=== PATIENT | male | born 1950 | race Caucasian/White ===

== ENCOUNTER → 2016-09-08 | Outpatient (CLI) | payer BC, OTHER ==
[~2016-09-08] MED LIST: ASPI-435 PO; ATOR-22 PO; CHOL2000 PO; COEN1CAP7 PO; DULO-24 PO; ESCI10TA17 PO; FLUT0.15 NAE; IMDSR30 PO; LISI10TA PO; METO-157 PO; METO25TA3 PO; NITR0.4S UT; PRED-301 PO; PRT/20 PO; RANI300T2 PO; TAMS0.4C38 PO; TRAM-10 PO; ULT50X PO; VNTHFA/IN INH; ZOLE5INJ IV; ZOLP6.252 PO
== END | disposition home or self-care (01) ==
LOC: C.RDSM 05:18
PROVIDERS: ATTEND Family Medicine Sports Medicine
DX: M25.562 Pain in left knee (principal)

== ENCOUNTER → 2016-09-20 | Outpatient (CLI) | payer BC ==
--- NOTE | 2016-09-20 14:37 | DIAGNOSTIC IMAGING REPORT ---
CHEST 2 VIEWS ROUTINE CLINICAL HISTORY: Preoperative chest. Coronary artery disease. COMPARISON STUDY: 05/11/2016 FINDINGS: The heart is the upper limits of normal in size. There are coronary artery calcifications. There is no failure. There is no lobar consolidation. There is right midlung zone atelectasis/scarring. There is a retrocardiac opacity consistent with a hiatal hernia. There is no failure. There are no pleural effusions. The study was performed in a somewhat apical lordotic fashion. IMPRESSION: No active disease in the chest. Electronically signed by: Jp Magallon M.D. 09/20/2016 2:36 PM Dictated Date/Time: 09/20/2016 2:35 PM
[2016-09-20 15:41] LABS: BASO % 0.6 %; BASO ABS # 0.04 K/uL (0-0.2); COMPLETE YES; EOS % 3.6 %; HEMATOCRIT 40.5 % (42-52); IG% 0.1 %; LYMPH % 16.2 %; LYMPH ABS # 1.17 K/uL (1.2-3.4); MEAN CORPUSCULAR HGB CONC 33.3 g/dl (32-36); MEAN PLATELET VOLUME 8.7 fL (7.4-10.4); MONO % 11.8 %; NEUT % 67.7 %; PLATELET COUNT 215 K/uL (130-400); WHITE BLOOD COUNT 7.23 K/uL (4.8-10.8)
[2016-09-20 15:51] LABS: PARTIAL THROMBOPLASTIN RATIO 0.9; PROTHROMBIN TIME (PATIENT) 10.9 SECONDS (9.0-12.0)
[2016-09-20 15:58] LABS: BLOOD UREA NITROGEN 14 mg/dl (7-18); BUN/CREATININE RATIO 13.1 (10-20); CALCIUM 8.9 mg/dl (8.5-10.1); CARBON DIOXIDE 26 mmol/L (21-32); CHLORIDE 104 mmol/L (98-107); GLUCOSE 102 mg/dl (70-99); POTASSIUM 4.4 mmol/L (3.5-5.1); SODIUM 141 mmol/L (136-145)
== END | disposition home or self-care (01) ==
LOC: C.LAB1850 14:04
PROVIDERS: ATTEND Nurse Practitioner Acute Care
DX: I25.10 Atherosclerotic heart disease of native coronary artery without angina pectoris (principal); R94.39 Abnormal result of other cardiovascular function study

== ENCOUNTER → 2016-11-10 | Outpatient (CLI) | payer BC ==
--- NOTE | 2016-11-10 14:02 | DIAGNOSTIC IMAGING REPORT ---
NUCLEAR GASTRIC EMPTYING STUDY CLINICAL HISTORY: Early satiety. Gastroesophageal reflux disease. COMPARISON STUDY: Fluoroscopic upper GI series dated 09/03/2015. TECHNIQUE: Following the oral administration of 1.1 mCi of technetium 99m sulfur colloid in egg sandwich and 8 ounces of water, static abdominal images are obtained anteriorly and posteriorly at 0 minutes, 1 hour, 2 hour, and 4 hour time intervals. Gastric emptying was calculated utilizing the geometric mean method. FINDINGS: There is approximately 75% activity remaining at the 1 hour time interval, 27% remaining at the 2 hour time interval (normal is less than 60%), and 0% activity remaining at the 4 hour time interval (normal is less than 10%). IMPRESSION: Findings are consistent with normal gastric emptying for solids. Electronically signed by: Wesley Christian M.D. 11/10/2016 2:00 PM Dictated Date/Time: 11/10/2016 2:00 PM
== END | disposition home or self-care (01) ==
LOC: C.NUCL 07:38
PROVIDERS: ATTEND Physician Assistant
DX: K21.9 Gastro-esophageal reflux disease without esophagitis (principal); R68.81 Early satiety

== ENCOUNTER 2017-03-11 11:37 | Observation (INO) | payer BC ==
[~2017-03-11] VITALS: Ht 177.8 cm; Wt 88.7 kg
[~2017-03-11 11:37] MED LIST changes: -IMDSR30 PO; -ULT50X PO
[2017-03-11 12:12] LABS: HEMATOCRIT 36.6 % (42-52); MEAN CELL VOLUME 81.7 fL (80-100); MEAN CORPUSCULAR HEMOGLOBIN 26.8 pg (25-34); MEAN CORPUSCULAR HGB CONC 32.8 g/dl (32-36); MEAN PLATELET VOLUME 8.7 fL (7.4-10.4); PLATELET COUNT 208 K/uL (130-400); RED BLOOD COUNT 4.48 M/uL (4.7-6.1); WHITE BLOOD COUNT 5.59 K/uL (4.8-10.8)
[2017-03-11 12:20] LABS: BUN/CREATININE RATIO 16.4 (10-20); CALCIUM 8.7 mg/dl (8.5-10.1); POTASSIUM 3.3 mmol/L (3.5-5.1)
[2017-03-11 12:25] LABS: ALB/GLOB RATIO 1.2 (0.9-2); CKMB/CK RATIO 1.1 (0-3.0)
--- NOTE | 2017-03-11 12:36 | DIAGNOSTIC IMAGING REPORT ---
CHEST ONE VIEW PORTABLE HISTORY: 66 years-old Male acute chest pain COMPARISON: Chest radiograph 09/20/2016 TECHNIQUE: Portable upright AP view of the chest FINDINGS: Coronary arterial calcifications or stent graft is noted. Cardiac silhouette is mildly enlarged. There is no pneumothorax, pleural effusion or focal airspace consolidation. There is mild right hemidiaphragmatic elevation. Linear pleural-based subsegmental opacities of the lateral aspects of the midlungs bilaterally are compatible with atelectasis or scarring. The bones are grossly intact. There appears to be prior osteotomy or osteolysis of the distal left clavicle. IMPRESSION: Mild cardiomegaly without acute cardiopulmonary process. The above report was generated using voice recognition software. It may contain grammatical, syntax or spelling errors. Electronically signed by: Acosta Rizzo M.D. 03/11/2017 12:35 PM Dictated Date/Time: 03/11/2017 12:33 PM
[2017-03-11] MEDS ORDERED: ONDANSETRON INJ 2 MG/ML 2 ML VIAL IV STA (12:46)
[2017-03-11] MEDS ORDERED: SODIUM CHLORIDE 0.9% 500ML 500 ML IV STA (12:47)
[2017-03-11] MEDS ORDERED: FENTANYL CITRATE INJ 50 MCG/1 ML 2 ML VIAL IV ONE (13:00)
[2017-03-11 13:31] LABS: PARTIAL THROMBOPLASTIN RATIO 0.9; PROTHROMBIN TIME (PATIENT) 11.1 SECONDS (9.0-12.0)
[2017-03-11] MEDS ORDERED: OPTIRAY 320 IV PRN (14:15)
--- NOTE | 2017-03-11 14:53 | DIAGNOSTIC IMAGING REPORT ---
(CHEST FOR PE) ANGIO WITH CT DOSE: 793.25 mGy.cm HISTORY: Chest pain dyspnea TECHNIQUE: Multiaxial CT images of the chest were performed following the intravenous administration of contrast to evaluate the pulmonary arteries. Maximal intensity projection images were also obtained. A dose lowering technique was utilized adhering to the principles of ALARA. COMPARISON STUDY: 05/11/2016 FINDINGS: thoracic aorta is normal in course and caliber. Pulmonary vasculature enhances appropriately. There are no filling defects. There are scattered atelectatic changes of the right perihilar as well as regions adjacent to the major fissures bilaterally. No evidence for significant cardiac enlargement. Slight bibasilar interstitial prominence. Fixed hiatal hernia. IMPRESSION: 1. No evidence for pulmonary embolus. 2. Scattered atelectatic and interstitial change. 3. Fixed hiatal hernia. The above report was generated using voice recognition software. It may contain grammatical, syntax or spelling errors. Electronically signed by: Lance Wild M.D. 03/11/2017 2:52 PM Dictated Date/Time: 03/11/2017 2:48 PM
--- NOTE | 2017-03-11 14:57 | DIAGNOSTIC IMAGING REPORT ---
HEAD WITHOUT CONTRAST (CT) CT DOSE: 614.27 mGy.cm HISTORY: Headache DE ANDA TECHNIQUE: Multiaxial CT images of the head were performed without the use of intravenous contrast. A dose lowering technique was utilized adhering to the principles of ALARA. Comparison: 12/01/2012 Findings: The paranasal sinuses demonstrate moderate mucosal thickening in the ethmoid sinuses. All remaining sinuses are clear.. The calvarium and skull base are intact. The ventricles and sulci are within normal limits. There is no mass, hematoma, midline shift, or acute infarct. Old left craniotomy defect. Impression: No acute intracranial abnormality. Old left craniotomy defect. Moderate mucosal thickening of the ethmoid sinuses The above report was generated using voice recognition software. It may contain grammatical, syntax or spelling errors. Electronically signed by: Lance Wild M.D. 03/11/2017 2:55 PM Dictated Date/Time: 03/11/2017 2:53 PM
[2017-03-11] MEDS ORDERED: NITROGLYCERIN 0.4 MG SL PER TAB CHARGE SL PRN (16:30)
[2017-03-11] MEDS ORDERED: ZOLPIDEM TARTRATE 5 MG TAB PO PRN (16:30)
[2017-03-11] MEDS ORDERED: POLYETHYLENE (MIRALAX) 17 GM PACK PO PRN (16:30)
[2017-03-11] MEDS ORDERED: HYDROmorphone INJ 1 MG/ML SYR IV ONE (16:30)
[2017-03-11] MEDS ORDERED: MAGNESIUM HYDROXIDE SUSP 30 ML UDC PO PRN (16:30)
[2017-03-11] MEDS ORDERED: ACETAMINOPHEN 325 MG TAB PO PRN (16:30)
[2017-03-11] MEDS ORDERED: ALUMINUM/MAGNESIUM/SIMETH (MAALOX MAX) 30 ML UDC PO PRN (16:30)
[2017-03-11] MEDS ORDERED: ALBUTEROL HFA 8 GM INHALER INH PRN (16:30)
[2017-03-11] MEDS ORDERED: ONDANSETRON INJ 2 MG/ML 2 ML VIAL IV PRN (16:30)
--- NOTE | 2017-03-11 17:04 | History and Physical ---
History & Physical Date & Time of Service: Mar 11, 2017 at 16:42 Chief Complaint: Chest Pain Primary Care Physician: Mary Pina M.D. History of Present Illness Source: patient 66 y/o M Hx CAD, HTN, HPL, DVT/PE, cervical spinal stenosis. Pt has chronic neck pain which was acutely worse this AM. The pain was severe and seemed to radiate into his chest. He describes accompanying SOB, nausea and profuse diaphoresis. He had a total of 4 SL NTG at home which did not ameliorate the pain and he presented to the ER therefore. After receiving narcotics in the ER , the pain relocalized to his neck. Past Medical/Surgical History 1) Sarcoidosis 2) Cervical stenosis with chronic neck pain. Follows with neurosurgery who have thus far advised against intervention. 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 He required a craniotomy and then an additional revision when the wound became infected. 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 Smoking Status: Never Smoker Drug Use: none Marital Status: Housing status: lives with family Occupational Status: employed Immunizations History of Influenza Vaccine: Yes Influenza Vaccine Date: Oct 19, 2010 History of Tetanus Vaccine?: Yes Tetanus Immunization Date: Aug 01, 2010 History of Pneumococcal: No History of Hepatitis B Vaccine: No Hepatitis Immunization Date: Oct 19, 2010 Multi-Drug Resistant Organisms History of MDRO: No Allergies Coded Allergies: No Known Allergies (Unverified , 03/11/17) Home Medications Scheduled Aspirin (Aspirin 81), 81 MG PO DAILY Atorvastatin (Lipitor), 20 MG PO DAILY Cholecalciferol (Vitamin D3), 1 CAP PO DAILY Coenzyme Q10 (Ubidecarenone) (Coq10), 400 MG PO DAILY Duloxetine Hcl (Cymbalta), 20 MG PO DAILY Escitalopram (Lexapro), 10 MG PO DAILY Fluticasone Propionate (Nasal) (Flonase Allergy Relief), 1 SPRAY JESUS BID Lisinopril (Prinivil), 10 MG PO DAILY Metoclopramide (Reglan), 5 MG PO HS Metoprolol Succ (Toprol Xl) (Toprol-Xl), 25 MG PO DAILY Pantoprazole Sodium (Protonix), 20 MG PO BID Prednisone (Prednisone), 5 MG PO DAILY Ranitidine Hcl (Zantac), 300 MG PO HS Tamsulosin Hcl (Flomax), 0.4 MG PO DAILY Zoledronic Acid (Reclast), 5 MG IV YEARLY Scheduled PRN Albuterol Hfa (Ventolin Hfa), 2 PUFFS INH Q4 PRN for Wheezing Nitroglycerin (Nitrostat), 0.4 MG UT UD PRN for Chest Pain Zolpidem Tartrate (Ambien Cr), 6.25 MG PO HS PRN for Sleep Review of Systems Constitutional: + sweats, No fever, No chills Eyes: No worsening of vision, No eye pain ENT: No hearing loss, No unusual epistaxis, No nasal symptoms Respiratory: No cough, No sputum, No wheezing Cardiovascular: + chest pain, No orthopnea Abdomen: + nausea, No pain, No vomiting Musculoskeletal: + joint pain (Neck pain) Genitourinary - Male: No hematuria, No dysuria, No urinary frequency, No urinary urgency Neurologic: No memory loss, No paralysis, No weakness Psychiatric: No depression symptoms Endocrine: No fatigue Hematologic / Lymphatic: No abnormal bleeding/bruising Integumentary: No rash Allergic / Immunologic: No environmental allergies Physical Exam Vital Signs Date Time Temp Pulse Resp B/P (MAP) Pulse Ox O2 Delivery O2 Flow Rate FiO2 03/11/17 14:53 71 16 131/65 98 Room Air 03/11/17 12:20 83 18 150/85 100 Nasal Cannula 2.0 03/11/17 12:16 100 Nasal Cannula 2.0 03/11/17 12:15 98 Room Air 03/11/17 11:44 81 03/11/17 11:43 98 Room Air 03/11/17 11:43 37.0 71 17 136/74 98 Room Air General Appearance: WD/WN, + pertinent finding (Overweight middle-aged male - appears emotionally distressed) Head: normocephalic Eyes: normal inspection, EOMI ENT: normal ENT inspection, hearing grossly normal, pharynx normal Neck: supple, no JVD Respiratory/Chest: chest non-tender, lungs clear, normal breath sounds, no respiratory distress, no accessory muscle use Cardiovascular: regular rate, rhythm, no edema, no gallop, no JVD, no murmur, normal peripheral pulses Abdomen/GI: normal bowel sounds, non tender, soft Back: normal inspection, no CVA tenderness, no muscle spasm, normal range of motion Extremities/Musculoskelatal: normal inspection, no calf tenderness, normal capillary refill, no pedal edema, normal range of motion 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, no motor/sensory deficits, alert, normal mood/affect, normal reflexes, oriented x 3 Skin: normal color, no rash Diagnostics Laboratory Results Results Past 24 Hours Test 03/11/17 11:35 03/11/17 12:09 03/11/17 12:52 Range/Units White Blood Count 5.59 4.8-10.8 K/uL Red Blood Count 4.48 4.7-6.1 M/uL Hemoglobin 12.0 14.0-18.0 g/dL Hematocrit 36.6 42-52 % Mean Corpuscular Volume 81.7 80-100 fL Mean Corpuscular Hemoglobin 26.8 25-34 pg Mean Corpuscular Hemoglobin Concent 32.8 32-36 g/dl RDW Standard Deviation 43.5 36.4-46.3 fL RDW Coefficient of Variation 14.6 11.5-14.5 % Platelet Count 208 130-400 K/uL Mean Platelet Volume 8.7 7.4-10.4 fL Sodium Level 141 136-145 mmol/L Potassium Level 3.3 3.5-5.1 mmol/L Chloride Level 107 98-107 mmol/L Carbon Dioxide Level 27 21-32 mmol/L Anion Gap 7.0 3-11 mmol/L Blood Urea Nitrogen 16 7-18 mg/dl Creatinine 1.00 0.60-1.40 mg/dl Est Creatinine Clear Calc Drug Dose 82.5 ml/min Estimated GFR () 91.1 Estimated GFR (Non- 78.6 BUN/Creatinine Ratio 16.4 10-20 Random Glucose 104 70-99 mg/dl Calcium Level 8.7 8.5-10.1 mg/dl Total Bilirubin 0.6 0.2-1 mg/dl Aspartate Amino Transf (AST/SGOT) 17 15-37 U/L Alanine Aminotransferase (ALT/SGPT) 26 12-78 U/L Alkaline Phosphatase 53 45-117 U/L Total Creatine Kinase 168 39-308 U/L Creatine Kinase MB 1.9 0.5-3.6 ng/ml Creatine Kinase MB Ratio 1.1 0-3.0 Total Protein 6.7 6.4-8.2 gm/dl Albumin 3.7 3.4-5.0 gm/dl Globulin 3.0 2.5-4.0 gm/dl Albumin/Globulin Ratio 1.2 0.9-2 Bedside Troponin I < 0.030 0-0.045 ng/ml Prothrombin Time 11.1 9.0-12.0 SECONDS Prothromb Time International Ratio 1.0 0.9-1.1 Activated Partial Thromboplast Time 22.6 21.0-31.0 SECONDS Partial Thromboplastin Ratio 0.9 D-Dimer 930 0-500 ug/L FEU Diagnostic Radiology CTA - no PE or acute findings Normal EKG Impression Assessment and Plan 66 y/o M Hx CAD, HTN, HPL, DVT/PE, cervical spinal stenosis. Pt has chronic neck pain which was acutely worse this AM. The pain was severe and seemed to radiate into his chest. He describes accompanying SOB, nausea and profuse diaphoresis. He had a total of 4 SL NTG at home which did not ameliorate the pain and he presented to the ER therefore. After receiving narcotics in the ER , the pain relocalized to his neck. 1) CP - may have been due to coronary spasm following severe neck pain - due to his history we will monitor on telemetry with serial enzymes. Will cont ASA, Statin, Toprol and NTG/narcotics as needed for pain. 2) Neck pain - long-standing - becoming more severe causing pt due distress - we may want to contact his neurosurgeon if cardiac etiology is ruled out. Will provide narcotics as needed in the interim 3) HTN - cont Toprol, Lisinopril 4) HPL - cont statin Tx 5) Sarcoid - no evidence of exacerbation - cont Albuterol as needed in add to 5mg pred daily Full code - Heparin prophylaxis - total time for this admit including review of labs, meds, EKG, records - discussion with pt and ER attending - 33 min Level of Care Telemetry Resuscitation Status FULL RESUSCITATION VTE Prophylaxis VTE Risk Assessment Done? Y/N: Yes Risk Level: Moderate Given or contraindicated: Unfractionated heparin SQ
[2017-03-11 17:50] VITALS: BP 161/73; PULSE 63; TEMP 36.9; O2SAT 97; Ht 177.8 cm; Wt 88.7 kg
[2017-03-11] MEDS ORDERED: POTASSIUM CHLORIDE PWD 20 MEQ PACK PO ONE (18:30)
[2017-03-11] MEDS ORDERED: NSS + 20MEQ KCL 1000ML 1,000 ML IV SCH (18:30)
[2017-03-11] MEDS ORDERED: NITROGLYCERIN OINT 2% 1GM PACKET EXT ONE (18:30)
--- NOTE | 2017-03-11 19:16 | EMERGENCY ROOM VISIT NOTE ---
History Report prepared by Mary: Jb Romo Under the Supervision of: Dr. Kevin Acosta D.O. First contact with patient: 12:37 Chief Complaint: CHEST PAIN Stated Complaint: CHEST PAIN Nursing Triage Summary: CP while resting at home. Does has cardiac history with stents. Left sided CP and was diaphoretic. Took 4 nitros at home, no relief. ALS gave 3 nitros, minimal relief. Was given 3 ASA, takes a baby ASA in AM. History of Present Illness The patient is a 66 year old male who presents to the Emergency Room via EMS with complaints of constant pressure-like left-sided chest pain that began 3 hours ago. He rates his pain a 3/10 in severity. At this time, the patient was sitting on the sofa when the pain began. He then began to have diaphoresis and heart palpitations. He took 4 Nitroglycerin tablets, but it did not help his symptoms. He has a past medical history of 1 heart attack 10 years ago and [address] He does not know if his symptoms feel like those of his past heart attack. He is having some shortness of breath with the pain as well. He received more Nitroglycerin en route and 3 Aspirin 81 mg per EMS that helped his pain a little, but it is back now. He also has a past medical history of a DVT and a PE secondary to a subdural hematoma. He denies any fevers, cough, jaw pain, arm pain, or vomiting. He also denies any recent trauma. He takes a baby Aspirin every day. Source of History: patient Onset: 3 hours ago Position: chest (left) Symptom Intensity: 3/10 Quality: pressure Timing: constant Associated Symptoms: + SOB, No fevers, No cough, No vomiting Note: He denies any jaw pain or arm pain. Review of Systems See HPI for pertinent positives & negatives. A total of 10 systems reviewed and were otherwise negative. Past Medical & Surgical Medical Problems: (1) ACUTE VENOUS EMBOLISM & THROMBOSIS UNSP DEEP VESSELS OF LE (2) Back pain (3) Chest pain (4) Hypertension (5) [place] (myocardial infarction) (6) Neck pain (7) OTH PULMON EMBOLISM/INFARCT (8) PERCUTANEOUS TRANSLUM CORON ANGIOPLASTY STATUS (9) Sarcoidosis (10) SUBDURAL HEMORRHAGE Family History Omitted secondary to age. Social History Smoking Status: Never Smoker Smokeless Tobacco Use: No Drug Use: none Marital Status: Housing Status: lives with family Occupation Status: employed Current/Historical Medications Scheduled Aspirin (Aspirin 81), 81 MG PO DAILY Atorvastatin (Lipitor), 20 MG PO DAILY Cholecalciferol (Vitamin D3), 1 CAP PO DAILY Coenzyme Q10 (Ubidecarenone) (Coq10), 400 MG PO DAILY Duloxetine Hcl (Cymbalta), 20 MG PO DAILY Escitalopram (Lexapro), 10 MG PO DAILY Fluticasone Propionate (Nasal) (Flonase Allergy Relief), 1 SPRAY JESUS BID Lisinopril (Prinivil), 10 MG PO DAILY Metoclopramide (Reglan), 5 MG PO HS Metoprolol Succ (Toprol Xl) (Toprol-Xl), 25 MG PO DAILY Pantoprazole Sodium (Protonix), 20 MG PO BID Prednisone (Prednisone), 5 MG PO DAILY Ranitidine Hcl (Zantac), 300 MG PO HS Tamsulosin Hcl (Flomax), 0.4 MG PO DAILY Zoledronic Acid (Reclast), 5 MG IV YEARLY Scheduled PRN Albuterol Hfa (Ventolin Hfa), 2 PUFFS INH Q4 PRN for Wheezing Nitroglycerin (Nitrostat), 0.4 MG UT UD PRN for Chest Pain Zolpidem Tartrate (Ambien Cr), 6.25 MG PO HS PRN for Sleep Allergies Coded Allergies: No Known Allergies (Unverified , 03/11/17) Physical Exam Vital Signs Date Time Temp Pulse Resp B/P (MAP) Pulse Ox O2 Delivery O2 Flow Rate FiO2 03/11/17 16:30 64 16 166/106 99 Room Air 03/11/17 14:53 71 16 131/65 98 Room Air 03/11/17 12:20 83 18 150/85 100 Nasal Cannula 2.0 03/11/17 12:16 100 Nasal Cannula 2.0 03/11/17 12:15 98 Room Air 03/11/17 11:44 81 03/11/17 11:43 98 Room Air 03/11/17 11:43 37.0 71 17 136/74 98 Room Air Physical Exam GENERAL: alert, disheveled and ill appearing, no distress, non-toxic, sitting up in bed. EYE EXAM: normal conjunctiva OROPHARYNX: no exudate, no erythema, lips, buccal mucosa, and tongue normal and mucous membranes are moist NECK: supple, no nuchal rigidity, no adenopathy, non-tender LUNGS: Clear to auscultation. Normal chest wall mechanics HEART: Faint systolic ejection murmur. S1 normal and S2 normal ABDOMEN: abdomen soft, non-tender, normo-active bowel sounds, no masses, no rebound or guarding. BACK: Back is symmetrical on inspection and there is no deformity, no midline tenderness, no CVA tenderness. SKIN: no rashes and no bruising UPPER EXTREMITIES: upper extremities are grossly normal. Radial pulses equal bilaterally. LOWER EXTREMITIES: No pitting edema. NEURO EXAM: Normal sensorium, cranial nerves II-XII grossly intact, normal speech, no gross weakness of arms, no gross weakness of legs. Medical Decision & Procedures ER Provider Diagnostic Interpretation: Radiology results as stated below per my review and the radiologist's interpretation: CHEST ONE VIEW PORTABLE HISTORY: 66 years-old Male acute chest pain COMPARISON: Chest radiograph 09/20/2016 TECHNIQUE: Portable upright AP view of the chest FINDINGS: Coronary arterial calcifications or stent graft is noted. Cardiac silhouette is mildly enlarged. There is no pneumothorax, pleural effusion or focal airspace consolidation. There is mild right hemidiaphragmatic elevation. Linear pleural-based subsegmental opacities of the lateral aspects of the midlungs bilaterally are compatible with atelectasis or scarring. The bones are grossly intact. There appears to be prior osteotomy or osteolysis of the distal left clavicle. IMPRESSION: Mild cardiomegaly without acute cardiopulmonary process. The above report was generated using voice recognition software. It may contain grammatical, syntax or spelling errors. Electronically signed by: Acosta Rizzo M.D. 03/11/2017 12:35 PM Dictated Date/Time: 03/11/2017 12:33 PM (CHEST FOR PE) ANGIO WITH CT DOSE: 793.25 mGy.cm HISTORY: Chest pain dyspnea TECHNIQUE: Multiaxial CT images of the chest were performed following the intravenous administration of contrast to evaluate the pulmonary arteries. Maximal intensity projection images were also obtained. A dose lowering technique was utilized adhering to the principles of ALARA. COMPARISON STUDY: 05/11/2016 FINDINGS: thoracic aorta is normal in course and caliber. Pulmonary vasculature enhances appropriately. There are no filling defects. There are scattered atelectatic changes of the right perihilar as well as regions adjacent to the major fissures bilaterally. No evidence for significant cardiac enlargement. Slight bibasilar interstitial prominence. Fixed hiatal hernia. IMPRESSION: 1. No evidence for pulmonary embolus. 2. Scattered atelectatic and interstitial change. 3. Fixed hiatal hernia. The above report was generated using voice recognition software. It may contain grammatical, syntax or spelling errors. Electronically signed by: Lance Wild M.D. 03/11/2017 2:52 PM Dictated Date/Time: 03/11/2017 2:48 PM HEAD WITHOUT CONTRAST (CT) CT DOSE: 614.27 mGy.cm HISTORY: Headache DE ANDA TECHNIQUE: Multiaxial CT images of the head were performed without the use of intravenous contrast. A dose lowering technique was utilized adhering to the principles of ALARA. Comparison: 12/01/2012 Findings: The paranasal sinuses demonstrate moderate mucosal thickening in the ethmoid sinuses. All remaining sinuses are clear.. The calvarium and skull base are intact. The ventricles and sulci are within normal limits. There is no mass, hematoma, midline shift, or acute infarct. Old left craniotomy defect. Impression: No acute intracranial abnormality. Old left craniotomy defect. Moderate mucosal thickening of the ethmoid sinuses The above report was generated using voice recognition software. It may contain grammatical, syntax or spelling errors. Electronically signed by: Lance Wild M.D. 03/11/2017 2:55 PM Dictated Date/Time: 03/11/2017 2:53 PM Laboratory Results 03/11/17 11:35 03/11/17 11:35 Test 03/11/17 11:35 03/11/17 12:09 03/11/17 12:52 Red Blood Count 4.48 M/uL (4.7-6.1) Mean Corpuscular Volume 81.7 fL (80-100) Mean Corpuscular Hemoglobin 26.8 pg (25-34) Mean Corpuscular Hemoglobin Concent 32.8 g/dl (32-36) RDW Standard Deviation 43.5 fL (36.4-46.3) RDW Coefficient of Variation 14.6 % (11.5-14.5) Mean Platelet Volume 8.7 fL (7.4-10.4) Anion Gap 7.0 mmol/L (3-11) Est Creatinine Clear Calc Drug Dose 82.5 ml/min Estimated GFR () 91.1 Estimated GFR (Non- 78.6 BUN/Creatinine Ratio 16.4 (10-20) Calcium Level 8.7 mg/dl (8.5-10.1) Total Bilirubin 0.6 mg/dl (0.2-1) Aspartate Amino Transf (AST/SGOT) 17 U/L (15-37) Alanine Aminotransferase (ALT/SGPT) 26 U/L (12-78) Alkaline Phosphatase 53 U/L (45-117) Total Creatine Kinase 168 U/L (39-308) Creatine Kinase MB 1.9 ng/ml (0.5-3.6) Creatine Kinase MB Ratio 1.1 (0-3.0) Total Protein 6.7 gm/dl (6.4-8.2) Albumin 3.7 gm/dl (3.4-5.0) Globulin 3.0 gm/dl (2.5-4.0) Albumin/Globulin Ratio 1.2 (0.9-2) Bedside Troponin I < 0.030 ng/ml (0-0.045) Prothrombin Time 11.1 SECONDS (9.0-12.0) Prothromb Time International Ratio 1.0 (0.9-1.1) Activated Partial Thromboplast Time 22.6 SECONDS (21.0-31.0) Partial Thromboplastin Ratio 0.9 D-Dimer 930 ug/L FEU (0-500) Laboratory results per my review. Medications Administered Medications (Trade) Dose Ordered Sig/Loulou Route Start Time Stop Time Status Last Admin Dose Admin Fentanyl Citrate (Fentanyl Inj) 50 mcg NOW ONCE IV 03/11/17 13:00 03/11/17 13:01 DC 03/11/17 12:56 50 MCG Ondansetron HCl (Zofran Inj) 4 mg NOW STAT IV 03/11/17 12:46 03/11/17 12:48 DC 03/11/17 12:56 4 MG Sodium Chloride 500 ml @ 999 mls/hr Q31M STAT IV 03/11/17 12:47 03/11/17 13:17 DC 03/11/17 12:57 999 MLS/HR Hydromorphone HCl (Dilaudid Inj) 1 mg NOW ONCE IV 03/11/17 16:30 03/11/17 16:31 DC 03/11/17 16:30 1 MG ECG Indication: chest pain Rate (beats per minute): 81 Rhythm: sinus rhythm Findings: PVC, Q waves (Inferior), other (Normal intervals) ED Course ED COURSE: Vital signs were reviewed and showed hypertension. The patients medical record was reviewed The above diagnostic studies were performed and reviewed. ED treatments and interventions as stated above. 1237: The patient was evaluated in room C1B. A complete history and physical examination was performed. 1246: Ordered Zofran Inj 4 mg IV 1247: Ordered Sodium Chloride 500 ml @ 999 mls/hr IV 1300: Ordered Fentanyl Inj 50 mcg IV 1427: The patient is now complaining of head and neck pain. 1513: Upon reevaluation, the patient is resting. I discussed my findings with the patient and he understands and agrees with the treatment plan. Based on the patients age, coexisting illnesses, exam and lab findings the decision to treat as an inpatient was made. The patient remained stable while under my care. The patient will be evaluated by Dr. Edgar DILLON, for further management. 1630: Ordered Dilaudid Inj 1 mg IV Medical Decision Differential diagnoses includes but is not limited to acute coronary syndrome, myocardial infarction, pericarditis, pulmonary embolus, aortic dissection, pneumonia, pneumothorax, musculoskeletal, shingles, esophageal. Patient is a 66-year-old male who presents the ER for chest pain which she describes as a tightness. He had some improvement with nitroglycerin and he did take aspirin prior to arrival. He has a history of a [place] 10 years ago with 5 stents placed. He did have a recent cath which showed that he will likely need a CABG. Patient was given fentanyl and Dilaudid with improvement of his pain. Through his evaluation he started complaining of a headache and neck pain. CT of the chest was performed with the elevated d-dimer. Troponin was negative. EKG was nondiagnostic. Chest x-ray unremarkable. Patient was admitted to internal medicine, chest pain-free but with neck pain and upper thoracic pain which started just prior to admission. He does admit that this does not feel like his previous [place]. Medication Reconcilliation Current Medication List: was personally reviewed by me Blood Pressure Screening Patient's blood pressure: Elevated blood pressure Blood pressure disposition: Elevated BP felt to be situational Consults Time Called: 151 Consulting Physician: Dr. Hernández - [place] Returned Call: 1513 I reviewed the patient's case with him. He will evaluate the patient for further management. Impression Primary Impression: Precordial chest pain Scribe Attestation The scribe's documentation has been prepared under my direction and personally reviewed by me in its entirety. I confirm that the note above accurately reflects all work, treatment, procedures, and medical decision making performed by me. Departure Information Dispostion Being Evaluated By Hospitalist Referrals Mary Pina M.D. (PCP) Patient Instructions My [facility]
[2017-03-11] MEDS ORDERED: IV FLUIDS COMPLETED PRN ×2 (20:00→20:45)
[2017-03-11] MEDS: FLUTICASONE PROPIONATE NA SPR 16 GM BTL NAE SCH (21:05)
[2017-03-11] MEDS: PANTOprazole SOD 40 MG TAB PO SCH (21:06)
[2017-03-11] MEDS: RANITIDINE HCL 150 MG TAB PO SCH (21:07)
[2017-03-11] MEDS: METOCLOPRAMIDE HCL 10 MG TAB PO SCH (21:07)
[2017-03-11] MEDS: HEPARIN SOD 5000 UNIT/0.5 ML CARP SQ SCH (21:15)
[2017-03-11] MEDS: MoRPHine SULFATE 4 MG/ML 1 ML CARP\\VIAL IV PRN (22:34)
[2017-03-11 23:30] VITALS: BP 110/63; PULSE 68; TEMP 36.9; O2SAT 92
[2017-03-12] VITALS (8 sets, daily range): BP systolic 110–145; BP diastolic 64–78; PULSE 70–84; TEMP 36.8–37; O2SAT 94–96
[2017-03-12] MEDS: HEPARIN SOD 5000 UNIT/0.5 ML CARP SQ SCH ×3 (06:07→21:37)
[2017-03-12] MEDS: MoRPHine SULFATE 4 MG/ML 1 ML CARP\\VIAL IV PRN (07:12)
[2017-03-12] MEDS: FLUTICASONE PROPIONATE NA SPR 16 GM BTL NAE SCH ×2 (07:15→21:34)
[2017-03-12] MEDS: ASPIRIN 81 MG ECTAB PO SCH (07:15)
[2017-03-12] MEDS: METOPROLOL SUCC 25MG EXT REL TAB PO SCH (07:15)
[2017-03-12] MEDS: ATORVASTATIN 20 MG TAB PO SCH (07:16)
[2017-03-12] MEDS: TAMSULOSIN HCL 0.4 MG CAP PO SCH (07:16)
[2017-03-12] MEDS: LISINOPRIL 10 MG TAB PO SCH (07:16)
[2017-03-12] MEDS: PANTOprazole SOD 40 MG TAB PO SCH ×2 (07:17→21:35)
[2017-03-12] MEDS ORDERED: DULOXETINE HCL 20 MG CAP PO SCH (09:00)
[2017-03-12] MEDS ORDERED: ESCITALOPRAM 10 MG PO SCH (09:00)
[2017-03-12] MEDS ORDERED: POTASSIUM CHLORIDE 20 MEQ TABCR PO ONE (17:07)
[2017-03-12] MEDS ORDERED: TRAMADOL HCL 50 MG TAB PO PRN (17:15)
--- NOTE | 2017-03-12 17:24 | Progress Note ---
Subjective Date of Service: Mar 12, 2017. Subjective Pt evaluation today including: conversation w/ patient, conversation w/ family ( at bedside), physical exam, chart review, lab review, review of studies ( outpatient records ([employer])), review of inpatient medication list Pain: neck, posteriorly - acute/chronic PO Intake: normal Voiding: no voiding problems tele stable overnight denies chest pain recounts that when he took 4 SL nitros yesterday at home for upper left chest pain he did NOT have any relief of symptoms records reviewed - had heart cath in [place] earlier in 2017 - stents patent he cannot recall his last echo he was told that his heart cath was stable he has been receiving PT for his neck at [place] the day after treatments he has been quite sore had cervical spine injections last fall with mild relief (maybe 2 weeks of relief) has seen neurosurgery in the past as well reports chronic BLUE and is followed by pulmonary for sarcoid on chronic prednisone 5mg daily for 10-12 years Problem List Medical Problems: (1) Medication reaction Status: Acute (2) Precordial chest pain Status: Acute Review of Systems Respiratory: + dyspnea on exertion (acute/chronic), No cough Cardiac: No chest pain, No orthopnea, No PND, No edema Abdomen: No pain, No nausea, No vomiting Neurologic: + numbness/tingling (left hand - all the fingers ) Objective Vital Signs Date Time Temp Pulse Resp B/P (MAP) Pulse Ox O2 Delivery O2 Flow Rate FiO2 03/12/17 15:05 36.9 70 18 137/78 (97) 96 Room Air 03/12/17 12:00 94 Room Air 03/12/17 11:07 36.9 84 18 127/75 (92) 94 Room Air 03/12/17 08:00 94 Room Air 03/12/17 07:41 37.0 72 18 135/78 (97) 94 Room Air 03/12/17 04:00 Room Air 03/12/17 03:59 36.8 70 22 110/64 (79) 96 Room Air 03/12/17 00:00 Room Air 03/11/17 23:30 36.9 68 22 110/63 (79) 92 Room Air 03/11/17 20:00 Room Air 03/11/17 17:50 36.9 63 18 161/73 97 Room Air 8/11/17 17:23 69 16 177/80 97 Physical Exam General Appearance: no apparent distress ENT: pharynx normal Neck: + pertinent finding (decreased flexion/extension; rotation intact; paraspinal muscles are stiff/tender posteriorly) Respiratory/Chest: lungs clear, no respiratory distress, no accessory muscle use Cardiovascular: regular rate, rhythm, no gallop, no murmur Abdomen: normal bowel sounds, non tender, soft, no organomegaly Extremities: no pedal edema Neurologic/Psychiatric: no motor/sensory deficits (left arm/right arm - all muscle groups intact ), alert, oriented x 3 Laboratory Results Last 24 Hours Test 03/11/17 17:57 03/12/17 00:25 03/12/17 06:47 Troponin I < 0.015 ng/ml < 0.015 ng/ml Hepatitis C Antibody NEG Assessment and Plan 66yo male - 1. chest pain - has not recurred. Was somewhat atypical. SL Nitro x 4 prior to presentation with no relief. EKG, cardiac enzymes x 3 sets, telemetry - all neg/normal. Echo pending. Pain could have been referred pain from his neck (higher cervical spine level). Request records from [place]. 2. cervical spine DJD - chronic, but getting worsening - could be the reason for his presentation. Will repeat his cervical spine MRI. Increase prednisone to 50mg daily for 5-7 days for his neck. Tramadol prn. Increase cymbalta to 40mg daily for neuropathic pain. 3. hypokalemia - replace; repeat K/mag in am. 4. sarcoid, on chronic prednisone - controlled; CT chest w/o active disease. 5. HTN - continue home meds. 6. h/o SDH - noted. 7. h/o DVT/PE - noted. CTA chest negative for PEs. 8. DVT proph - heparin TID. await echo await MRI c-spine await outside records updated at bedside Discharge planning: home
--- NOTE | 2017-03-12 21:34 | DIAGNOSTIC IMAGING REPORT ---
MRI OF THE CERVICAL SPINE WITHOUT CONTRAST CLINICAL HISTORY: Neck pain with left arm radiculopathy. COMPARISON: MRI of the cervical spine January 08, 2013. TECHNIQUE: Utilizing a 1.5 Shu magnet and dedicated coil, multiplanar, multiecho imaging of the cervical spine was performed without IV contrast. FINDINGS: Partial fusion of C2 and C3 is again noted. Study is mildly compromised by motion artifact. Cervical cord signal and caliber are normal. No intra or mass or fluid collection is identified. Paravertebral soft tissues are unremarkable. There is no suspicious marrow replacement. A T1 hyperintense lesion within the T1 vertebral body reflects a hemangioma. C2-C3: The central canal and right neural foramen are patent. There is mild narrowing of the left neural foramen. C3-C4: There is minimal disc bulge. The central canal is patent. There is severe right and moderate left neural foraminal stenosis due to facet arthrosis and uncovertebral hypertrophy. C4-C5: Mild disc bulge is noted. There is minimal narrowing of the central canal. Severe narrowing of the right neural foramen is noted with moderate narrowing of the left neural foramen. C5-C6: Mild posterior disc osteophyte complex results in mild narrowing of the central canal. Moderate left and mild right neural foraminal stenosis is present. C6-C7: Mild disc bulge is noted. There is mild narrowing of the central canal. Moderate left and mild right neural foraminal stenosis is present. C7-T1: Central canal and neural foramen are patent. IMPRESSION: 1. Normal cervical cord signal and caliber. Mild multilevel central canal stenosis with mild progression of degenerative disc disease and facet arthrosis since exam of December 01, 2012. 2. Moderate to severe multilevel neural foraminal narrowing due to uncovertebral hypertrophy and facet arthrosis, as detailed above. Electronically signed by: Jared Lange M.D. 03/12/2017 9:33 PM Dictated Date/Time: 03/12/2017 9:23 PM
[2017-03-12] MEDS: METOCLOPRAMIDE HCL 10 MG TAB PO SCH (21:36)
[2017-03-12] MEDS: RANITIDINE HCL 150 MG TAB PO SCH (21:36)
[2017-03-13 04:00] VITALS: BP 142/81; PULSE 68; TEMP 36.9; O2SAT 95
[2017-03-13] MEDS: HEPARIN SOD 5000 UNIT/0.5 ML CARP SQ SCH (05:52)
[2017-03-13 07:00] LABS: BUN/CREATININE RATIO 19.6 (10-20); CALCIUM 8.3 mg/dl (8.5-10.1); CREATININE 0.78 mg/dl (0.60-1.40); MAGNESIUM 2.1 mg/dl (1.8-2.4); POTASSIUM 4.1 mmol/L (3.5-5.1)
[2017-03-13 07:53] VITALS: BP 145/79; PULSE 69; TEMP 36.6; O2SAT 95
[2017-03-13] MEDS: FLUTICASONE PROPIONATE NA SPR 16 GM BTL NAE SCH (08:49)
[2017-03-13] MEDS: ASPIRIN 81 MG ECTAB PO SCH (08:49)
[2017-03-13] MEDS: TAMSULOSIN HCL 0.4 MG CAP PO SCH (08:50)
[2017-03-13] MEDS: ATORVASTATIN 20 MG TAB PO SCH (08:50)
[2017-03-13] MEDS: METOPROLOL SUCC 25MG EXT REL TAB PO SCH (08:51)
[2017-03-13] MEDS: PANTOprazole SOD 40 MG TAB PO SCH (08:51)
[2017-03-13] MEDS: LISINOPRIL 10 MG TAB PO SCH (08:51)
[2017-03-13] MEDS ORDERED: DULOXETINE HCL 20 MG CAP PO SCH (09:00)
[2017-03-13] MEDS ORDERED: POTASSIUM CHLORIDE 20 MEQ TABCR PO SCH (09:00)
[2017-03-13] MEDS ORDERED: ISOSORBIDE MONONITRATE 30 MG TABCR PO ONE (11:00)
[2017-03-13 11:15] VITALS: BP 108/76; PULSE 82; TEMP 36.3; O2SAT 94
[2017-03-13] MEDS ORDERED: IMDSR30 PO (12:08)
[2017-03-13] MEDS ORDERED: ULT50X PO (12:08)
[2017-03-13] MEDS ORDERED: DULO-24 PO (12:08)
--- NOTE | 2017-03-13 12:25 | Discharge Instructions ---
Discharge Instructions Date of Service Mar 13, 2017. Admission Reason for Admission: Chest Pain Discharge Discharge Diagnosis / Problem: chest pain - heart attack ruled out; severe neck pain. Discharge Goals Goal(s): Decrease discomfort, Learn about illness, Diagnostic testing, Therapeutic intervention Activity Recommendations Activity Limitations: as noted below Until you see Dr. Lua - [facility] - please: 1. avoid heavy lifting over 20 pounds 2. avoid heavy exertional activities such has heavy yard work, nanny/household manager , or intense exercise at the gym 3. light activity is fine including walking 4. therapy sessions for your neck at [facility] are ok as long as it doesn't make your neck symptoms worse . Instructions / Follow-Up Instructions / Follow-Up From Dr. Norton: 1. Neck pain - * please bring your MRI of the neck to Dr. Ryder's office for him to see the images; see him this week as scheduled * for your pain do the following - * can take tramadol 50mg every 6 hours as needed for pain; new prescription provided * increase your cymbalta to 20mg twice a day; new prescription provided * increase your prednisone as follows - take 40mg tomorrow, then 30mg on Tuesday, 20mg on Tuesday, 10mg on , then back to your normal 5mg daily thereafter * tylenol [id number] as needed is fine * continuing your therapy at [facility] is fine as long as it doesn't make your neck symptoms worse 2. Coronary artery disease - * please call Dr. Lua's office in [place] tomorrow to schedule a follow- up appointment with him THIS WEEK * during your stay you had no evidence of heart attack based on blood work * your heart monitoring/telemetry was normal * your heart ultrasound (echocardiogram) showed overall normal function except for one small area likely related to your old heart attack * please START imdur (long-acting nitroglycerin) 30mg once daily tomorrow * continue all of your other medications as prior (aspirin, metoprolol, etc) 3. Chronic shortness of breath - * you have seen the [facility] (lung doctor) and your addiction professional about these symptoms * since your CAT scan of the lungs was normal I would advise you speak with Dr. Lua about these symptoms as soon as possible 4. Please see Jen Soto or one of her associates this week, if possible, to address all issues and other medical concerns 5. Return to [facility] if - * your neck pain is severe and not responding to any of your pain medications * you develop weakness, numbness, etc of either arm * you develop chest pain that doesn't respond to nitroglycerin tabs under the tongue * any other concerns Current Hospital Diet Patient's current hospital diet: AHA Diet (Heart Healthy) Discharge Diet Recommended Diet: AHA Diet (Heart Healthy) Procedures Procedures Performed: 1. CAT scan of the lungs showing no blood clots, no active sarcoid, no pneumonia. 2. Echocardiogram of the heart showing normal heart function, mild leakage of 2 valves, and evidence of OLD heart attack. 3. MRI of the neck showing moderate-severe arthritis/degeneration/spinal stenosis. Pending Studies Studies pending at discharge: no Medical Emergencies . Who to Call and When: Medical Emergencies: If at any time you feel your situation is an emergency, please call 911 immediately. . Non-Emergent Contact Non-Emergency issues call your: Primary Care Provider Call Non-Emergent contact if: your pain is not controlled, your pain is worsening, you have any medication questions . . "Provider Documentation" section prepared by Clarence Norton. . VTE Core Measure Inpt VTE Proph given/why not?: Unfractionated heparin SQ
[2017-03-13 13:52] VITALS: BP 108/76; PULSE 82; TEMP 36.3; O2SAT 94
--- NOTE | 2017-03-13 17:06 | Discharge Summary ---
Discharge Summary Date of Service Mar 13, 2017. Discharge Summary Admission Date: Mar 11, 2017 at 16:35 Discharge Date: Mar 13, 2017 Discharge Disposition: Home Principal Diagnosis: chest pain & neck pain Problems/Secondary Diagnoses: 1. Coronary artery disease with prior h/o FL and multiple stents 2. Sarcoidosis on chronic prednisone 3. HTN 4. GERD 5. BPH 6. cervical spine DJD/spinal stenosis 7. hypokalemia - resolved 8. hyperlipidemia 9. history of prior DVT/PE 10. 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 chronic dyspnea on exertion Immunizations: Have You Had Influenza Vaccine: Yes Influenza Vaccine Date: Oct 19, 2010 History of Tetanus Vaccine?: Yes Tetanus Immunization Date: Aug 01, 2010 History of Pneumococcal: No History of Hepatitis B Vaccine: No Hepatitis Immunization Date: Oct 19, 2010 Procedures: 1. MRI cervical spine: IMPRESSION: 1. Normal cervical cord signal and caliber. Mild multilevel central canal stenosis with mild progression of degenerative disc disease and facet arthrosis since exam of December 01, 2012. 2. Moderate to severe multilevel neural foraminal narrowing due to uncovertebral hypertrophy and facet arthrosis, as detailed above. 2. CTA chest negative for PE, pneumonia, signs of sarcoid, pulmonary edema, etc. 3. CT head negative for stroke or ICH. 4. Chest x-ray - normal. 5. echocardiogram: * -- Conclusions -- * Left ventricular systolic function is normal. * Akinesis and thinning of the proximal inferoposterior wall. * Ejection Fraction = 55-60%. * Mild aortic regurgitation. * Mild mitral regurgitation. * Mild tricuspid regurgitation. Medication Reconciliation New Medications: Isosorbide Mononitrate (Isosorbide Mononitrate ER) 30 Mg Tabcr 30 MG PO QAM, #30 TAB 1 Refill for your heart Tramadol HCl (Tramadol HCl) 50 Mg Tab 50 MG PO Q6H PRN for Pain, #30 TAB 0 Refills Changed Medications: Duloxetine Hcl (Cymbalta) 20 Mg Cap 20 MG PO BID, #60 CAP 2 Refills (Changed from: DAILY; Refills: ) Continued Medications: Albuterol Hfa (Ventolin Hfa) 200 Puffs/26658 Mcg Aers 2 PUFFS INH Q4 PRN for Wheezing, #1 INHALER Aspirin (Aspirin 81) 81 Mg Tab 81 MG PO DAILY Atorvastatin (Lipitor) 20 Mg Tab 20 MG PO DAILY, TAB Cholecalciferol (Vitamin D3) 2,000 Unit Cap 1 CAP PO DAILY for 90 Days, #90 CAP 3 Refills Coenzyme Q10 (Ubidecarenone) (Coq10) 200 Mg Cap 400 MG PO DAILY Escitalopram (Lexapro) Unknown Strength Tab 10 MG PO DAILY Fluticasone Propionate (Nasal) (Flonase Allergy Relief) 50 Mcg/Act Spr 1 SPRAY JESUS BID Lisinopril (Prinivil) 10 Mg Tab 10 MG PO DAILY, TAB Metoclopramide (Reglan) 10 Mg Tab 5 MG PO HS TAKE 1/2 HR BEFORE BED Metoprolol Succ (Toprol Xl) (Toprol-Xl) 25 Mg Tabcr 25 MG PO DAILY, 0 Refills Nitroglycerin (Nitrostat) 0.4 Mg Sub 0.4 MG UT UD PRN for Chest Pain, BTL Pantoprazole Sodium (Protonix) 20 Mg Tab 20 MG PO BID, #30 TAB Prednisone (Prednisone) 5 Mg Tab 5 MG PO DAILY, 0 Refills Ranitidine Hcl (Zantac) 300 Mg Tab 300 MG PO HS Tamsulosin Hcl (Flomax) 0.4 Mg Cap 0.4 MG PO DAILY for 30 Days, CAP 3 Refills Zoledronic Acid (Reclast) 5 Mg/100 Ml Inj 5 MG IV YEARLY Zolpidem Tartrate (Ambien Cr) 6.25 Mg Tab 6.25 MG PO HS PRN for Sleep, TAB Referrals At Discharge Follow up Referrals: Family Practice Referral - Within 1 Week with Jen Valera C.R.N.P Orthopedics Referral - Please Call For Appointment with Clyde Ryder D.O. Physician Referral - Within 1 Week with Micky Lua Discharge Exam Physical Exam: General Appearance: no apparent distress ENT: pharynx normal Neck: no JVD, + pertinent finding (mild restriction of passive flexion/ extension of neck with mild paraspinal muscle spasm/tenderness ) Respiratory/Chest: lungs clear, no respiratory distress, no accessory muscle use Cardiovascular: regular rate, rhythm, no gallop, normal peripheral pulses, + systolic murmur (2/6 LLSB) Abdomen / GI: normal bowel sounds, non tender, soft, no organomegaly Extremities: no pedal edema Neurologic/Psychiatric: no motor/sensory deficits (of either upper extremity ; strength 5/5 all muscle groups b/l arms), alert, normal mood/affect, oriented x 3 Skin: no rash Hospital Course HISTORY OF PRESENT ILLNESS: 66yo male with history of CAD s/p FL and prior stents, HTN, DVT/PE, and cervical spinal stenosis who presented with severe neck pain that seemed to radiate into his upper left chest. He described accompanying SOB, nausea and profuse diaphoresis. He had a total of 4 SL Nitroglycerins at home which did not ameliorate the pain and he therefore presented to the ER for evaluation. After receiving narcotics in the ER his pain in the neck/upper chest improved. However, he continued to have pain localizing to his neck. HOSPITAL COURSE: 1. chest pain - his symptoms were somewhat atypical and did not respond to copious nitroglycerin prior to hospital presentation. He never had recurrent chest pain while hospitalized. His EKG, cardiac enzymes x 3 sets, and telemetry were all negative/normal. His echocardiogram showed an area of akinesis likely due to his prior FL. EF was preserved. See full report above. The patient had undergone a cardiac catheterization in [address] Micky Lua in [place] and records indicate his stents were patent during that study. His pain could have been referred pain from his cervical spine stenosis/DJD. In light of his presenting symptoms as well as his complaint of chronic dyspnea with exertion I recommended he see Dr. Lua within 1 week of discharge to discuss additional testing and/or additional medical management of his underlying CAD. Low-dose imdur was added for improved BP control as well as his underlying CAD. 2. cervical spine DJD/stenosis - this was a chronic issue but had been worsening of late. He underwent MRI of the cervical spine with results as noted above. It is possible that his upper left chest discomfort was referred pain from the neck. He received a prednisone burst (will complete a taper after discharge), tramadol prn, and his cymbalta was increased to 20mg BID. He has scheduled follow-up with Dr. Clyde Ryder - pain management with [facility] - within 1-2 weeks of discharge. He did not have any symptoms or exam findings that argued for urgent surgical consultation while hospitalized. 3. sarcoid - follows with Dr. Selvin Campbell for this. He takes chronic prednisone 5mg daily. CTA chest did not appear to show any active pulmonary sarcoid. He complained of chronic dyspnea on exertion and again it was advised he see Dr. Campbell from pulmonary and Dr. Lua from cardiology to address this concern. Total Time Spent: Greater than 30 minutes This includes examination of the patient, discharge planning, medication reconciliation, and communication with other providers. Discharge Instructions Please refer to the electronic Patient Visit Report (Discharge Instructions) for additional information. Follow-Up 1. see Jen Valera NP - within [address] Clyde Ryder - pain management, [facility] - as scheduled within [address] [facility] [address]. [address]. Selvin Campbell, pulmonary - within 2 weeks - as scheduled Additional Copies To Micky Lua; Mary Pina M.D.; Jen Valera, Janette; Selvin Campbell M.D.; Clyde Rdyer, Hieu.
--- NOTE | 2017-03-14 08:38 | ECHOCARDIOGRAM REPORT ---
*NOTICE TO RECEIVING LIBERTARIAN AGENCY This information is strictly Confidential and protected under [place] law. [place] law prohibits you from making any further disclosure of this information unless further disclosure is expressly permitted by the written consent of the person to whom it pertains or is authorized by law. A general authorization for the release of medical or other information is not sufficient for this purpose. Hospital accepts no responsibility if the information is made available to any other person, INCLUDING THE PATIENT. Interpretation Summary * Name: LIZZETTE [place] Study Date: 03/13/2017 07:09 AM BP: 135/78 mmHg * Patient Location: C.2T\S\S230\S\1 HR: 68 * : 1950 (M/d/yyyy) Gender: Male Height: 70 in * Age: 66 yrs Ethnicity: CA Weight: 196 lb * Ordering Physician: Clarence Norton * Performed By: Lily Banerjee * * Reason For Study: CHEST PAIN * BSA: 2.1 m2 * -- Conclusions -- * Left ventricular systolic function is normal. * Akinesis and thinning of the proximal inferoposterior wall. * Ejection Fraction = 55-60%. * Mild aortic regurgitation. * Mild mitral regurgitation. * Mild tricuspid regurgitation. Procedure Details * A complete two-dimensional transthoracic echocardiogram was performed (2D, M-mode, Doppler and color flow Doppler). Left Ventricle * The left ventricle is normal in size. * There is borderline concentric left ventricular hypertrophy. * Ejection Fraction = 55-60%. * Left ventricular systolic function is normal. * Akinesis and thinning of the proximal inferoposterior wall. Right Ventricle * The right ventricle is normal size. * The right ventricular systolic function is normal as assessed by tricuspid annular plane systolic excursion (TAPSE) (normal >1.5 cm). Atria * The left atrium is mildly dilated. * Right atrial size is normal. * There is no evidence of atrial septal defect, but resolution does not allow assessment for a patent foramen ovale. Mitral Valve * The mitral valve is grossly normal. * There is no mitral valve stenosis. * There is mild mitral regurgitation. Tricuspid Valve * The tricuspid valve is not well visualized, but is grossly normal. * There is no tricuspid stenosis. * There is mild tricuspid regurgitation. Aortic Valve * The aortic valve is not well visualized. * Aortic valve sclerosis moderate, without significant aortic valvular stenosis. * The aortic valve opens well. * Mild aortic regurgitation. Pulmonic Valve * The pulmonary valve is not well seen, but the Doppler examination is normal without significant regurgitation or stenosis. Great Vessels * The aortic root is normal size. * The pulmonary is not well visualized. Pericardium/Pleural * There is no pericardial effusion. Great Vessels * Normal inferior vena cava size and collapsability with sniff indicates a normal right atrial pressure of 3 mmHg Left Ventricular Diastolic Function * Diastolic dysfunction, Grade II (pseudonormalization pattern). MMode 2D Measurements and Calculations IVSd 1.6 cm IVSs 1.9 cm LVIDd 5.0 cm LVIDs 3.5 cm LVPWd 0.82 cm LVPWs 1.5 cm IVS/LVPW 1.9 FS 29.4 % EDV(Teich) 118.2 ml ESV(Teich) 51.9 ml EF(Teich) 56.1 % EDV(cubed) 124.9 ml ESV(cubed) 44.0 ml EF(cubed) 64.8 % % IVS thick 16.2 % % LVPW thick 87.0 % LV mass(C)d 235.2 grams LV mass(C)dI 113.7 grams/m\S\2 LV mass(C)s 238.8 grams LV mass(C)sI 115.4 grams/m\S\2 SV(Teich) 66.2 ml SI(Teich) 32.0 ml/m\S\2 SV(cubed) 80.9 ml SI(cubed) 39.1 ml/m\S\2 EPSS 1.2 cm ACS 1.0 cm LA dimension 4.8 cm asc Aorta Diam 3.0 cm LVOT diam 2.2 cm LVOT area 3.9 cm\S\2 LVAd ap4 35.7 cm\S\2 LVLd ap4 9.0 cm EDV(MOD-sp4) 114.7 ml EDV(sp4-el) 119.8 ml LVAs ap4 20.8 cm\S\2 LVLs ap4 7.6 cm ESV(MOD-sp4) 47.4 ml ESV(sp4-el) 47.9 ml EF(MOD-sp4) 58.7 % EF(sp4-el) 60.1 % LVAd ap2 35.5 cm\S\2 LVLd ap2 8.3 cm EDV(MOD-sp2) 129.4 ml EDV(sp2-el) 129.0 ml LVAs ap2 21.4 cm\S\2 LVLs ap2 7.2 cm ESV(MOD-sp2) 57.2 ml ESV(sp2-el) 54.3 ml EF(MOD-sp2) 55.8 % EF(sp2-el) 57.9 % LVLd %diff -9.29 % EDV(MOD-bp) 123.5 ml LVLs %diff -6.76 % ESV(MOD-bp) 53.8 ml EF(MOD-bp) 56.5 % SV(MOD-sp4) 67.3 ml SI(MOD-sp4) 32.5 ml/m\S\2 SV(MOD-sp2) 72.2 ml SI(MOD-sp2) 34.9 ml/m\S\2 SV(MOD-bp) 69.7 ml SI(MOD-bp) 33.7 ml/m\S\2 SV(sp4-el) 72.0 ml SI(sp4-el) 34.8 ml/m\S\2 SV(sp2-el) 74.6 ml SI(sp2-el) 36.1 ml/m\S\2 Doppler Measurements and Calculations MV E max marj 113.1 cm/sec MV A max marj 81.4 cm/sec MV E/A 1.4 MV dec time 0.21 sec Ao V2 max 191.9 cm/sec Ao max PG 14.7 mmHg Ao max PG (full) 9.8 mmHg EDA(V,A) 2.3 cm\S\2 EDA(V,D) 2.3 cm\S\2 AI max marj 476.3 cm/sec AI max PG 90.7 mmHg AI dec slope 315.2 cm/sec\S\2 AI P1/2t 442.5 msec LV V1 max PG 5.0 mmHg LV V1 max 111.2 cm/sec PA V2 max 59.3 cm/sec PA max PG 1.4 mmHg TR max marj 285.1 cm/sec
[2017-03-14] MEDS ORDERED: ISOSORBIDE MONONITRATE 30 MG TABCR PO SCH (09:00)
== END 2017-03-13 13:25 | disposition home or self-care (01) ==
LOC: EDBD 11:37 → C.EDC 11:38 → C.2T 16:35 → ENRESERV 17:00
PROVIDERS: ADMIT Internal Medicine; ATTEND Internal Medicine
DX: R07.9 Chest pain, unspecified (principal); M54.2 Cervicalgia; I25.10 Atherosclerotic heart disease of native coronary artery without angina pectoris; I10 Essential (primary) hypertension; K21.9 Gastro-esophageal reflux disease without esophagitis; D86.9 Sarcoidosis, unspecified; N40.0 Benign prostatic hyperplasia without lower urinary tract symptoms; E78.5 Hyperlipidemia, unspecified; M48.02 Spinal stenosis, cervical region; M47.812 Spondylosis without myelopathy or radiculopathy, cervical region; I25.2 Old myocardial infarction; Z79.52 Long term (current) use of systemic steroids; Z79.82 Long term (current) use of aspirin; Z86.718 Personal history of other venous thrombosis and embolism; Z86.711 Personal history of pulmonary embolism; Z98.61 Coronary angioplasty status; Z82.49 Family history of ischemic heart disease and other diseases of the circulatory system

== ENCOUNTER → 2017-05-21 | Outpatient (CLI) | payer BC ==
[~2017-05-21] MED LIST changes: +IMDSR30 PO; -TRAM-10 PO; +ULT50X PO
[2017-05-21 13:55] LABS: CHOLESTEROL/HDL RATIO 2.3
== END | disposition home or self-care (01) ==
LOC: C.LABPVFM 08:01
PROVIDERS: ATTEND Nurse Practitioner
DX: D86.9 Sarcoidosis, unspecified (principal); E78.5 Hyperlipidemia, unspecified

== ENCOUNTER → 2017-12-17 | Outpatient (CLI) | payer BC ==
[2017-12-17 10:39] LABS: ALBUMIN 3.6 gm/dl (3.4-5.0); ALKALINE PHOSPHATASE 53 U/L (45-117); ALT/SGPT 22 U/L (12-78); AST/SGOT 18 U/L (15-37); BLOOD UREA NITROGEN 16 mg/dl (7-18); CALCIUM 8.5 mg/dl (8.5-10.1); CARBON DIOXIDE 32 mmol/L (21-32); CHOLESTEROL 140 mg/dl (0-200); CREATININE 1.07 mg/dl (0.60-1.40); GLUCOSE 95 mg/dl (70-99); LDL CHOLESTEROL CALCULATED 63 mg/dl; SODIUM 139 mmol/L (136-145)
== END | disposition home or self-care (01) ==
LOC: C.LAB1850 07:34
PROVIDERS: ATTEND Internal Medicine Cardiovascular Disease
DX: I25.10 Atherosclerotic heart disease of native coronary artery without angina pectoris (principal); I10 Essential (primary) hypertension; E78.5 Hyperlipidemia, unspecified; R06.09 Other forms of dyspnea

== ENCOUNTER 2025-06-01 07:22 | Inpatient (IN) ==
--- NOTE | 2025-06-01 07:42 | Emergency Department Note ---
Impression & Plan Acute congestive heart failure, Aortic stenosis ED Provider Note Name: LIZZETTE [place] Age: 74 Sex: Male Arrives Via: Walk-In Informant: Patient, ED Provider: Laurent Maldonado MD Chief Complaint: Shortness of breath Impression: As per impressions above Medical Decision Making: Pleasant 74-year-old gentleman with a history of CAD with stenting almost 20 years ago along with GERD, hypertension, diabetes. Has recently been dealing with some shortness of breath with exertion last few months and thus had gotten an echo about a month ago. Rapid worsening shortness of breath over the last few days associated with some modest increase in his hypertension. He is becoming dyspneic even at rest though primarily is unable to do his typical outdoor activities over the last few days. Chest x-ray shows developing pulmonary edema/congestive failure. He clearly has a systolic murmur by examination. Reviewed with low vision therapist who agrees with plan for hospitalization and this patient would very much like to go home. I discussed this with the patient and they would like to stay in the hospital. I think this is reasonable especially given the degree of shortness of breath and now swelling in the patient's face face I do not feel that the face swelling is angioedema but rather it looks more like fluid overload. Triage/Nursing Notes reviewed by Me External Chart Review by me: PCP note from 12/11/2024 reviewed by me to obtain past medical history Differential:Reactive airway disease, pneumonia, pneumothorax, COPD, CHF, infections, cardiac ischemia, pulmonary embolism, musculoskeletal, gastrointestinal, as well as other pathologies. Vital Signs: reviewed and remarkable for HTN Interventions: lasix 40mg iv Labs:ED labs Reviewed by me and remarkable for mildly elevated bnp Imaging:X ray results are stated below per my interpretation: Chest: 1 view: congestive findings with enlarged heart EKG:Per My Interpretation: Indication shob: NSR 76 bpm, qtc 416. No Ectopy. No Ischemia. Compared to EKG 08/03/22, no significant changes. Cardiac/Tele Monitoring: Cardiac Monitoring: An Order was placed for continuous cardiac monitoring. The monitor shows a rate of 70 with a normal sinus rhythm. Consults:Discussed with Dr Quintanilla Cardiology. Discussed with Dr Lopez of Hospitalist service. Plan: Disposition:Hospitalization. Condition: Fair History of Present Illness: 74-year-old male arrives for evaluation of shortness of breath. Patient dates over the last week and a half or so rapidly worsening shortness of breath with exertion. States he cannot do his typical outdoor activities or yard work without getting severely short of breath. States that it feels like he was has to cough something up but cannot. At the same time is made noticing increasing gas and belching. Denies any specific abdominal pain. Has not had any chest pain or chest pressure. Denies any palpitations, lightheadedness, syncope, nausea, vomiting, leg swelling or other concerning signs or symptoms. Patient was not feeling well this morning thus he opted to check his blood pressure at home. Blood pressure was 160/80 which is elevated for him. There is history of CAD and stenting along with multiple other medical issues he was concerned and thus arrives to the ER for evaluation. Patient does have a history of high blood pressure and is on lisinopril, metoprolol for it. Denies ever having issues with blood pressure spiking like this in the past though. Denies any trauma or injuries. Patient is on aspirin 81 mg daily. Patient does note that he previously had aortic stenosis had an ultrasound of his heart recently which he believes showed worsening. Past Medical History:See Below Home Medications:See Below Allergies: No known drug allergy Vitals:Blood Pressure: 177/78, Pulse 78, RR 18, T 36.6C, O2 94% on RA Physical Exam: GENERAL: Patient is mildly anxious appearing and in mild distress. FACE: Mild edema of the face and eyelid RESPIRATORY: Patient appears mildly dyspneic/tachypneic with some crackles at bases no wheezing CARDIOVASCULAR: Regular rate and rhythm.No murmur appreciated. GASTROINTESTINAL: Abdomen soft, non-tender, no peritonitis. EXTREMITIES: Normal motion all extremities, no cyanosis, no edema. NEUROLOGIC: Alert and oriented. No focal neurologic deficits appreciated SKIN: No rash, no jaundice, no diaphoresis. PSYCH: Appropriate GCS: 15 ED Course: Times/Reassessments: Patient is protecting airway though is still bit dyspneic and is agreeable to hospitalization as he feels symptoms are too severe to go home. Laurent Maldonado MD Past Med/Surg History Problem List (Updated 06/01/25 @ 15:33 by Laurent Maldonado MD) Aortic stenosis (Acute) Acute congestive heart failure (Acute) Diabetes mellitus Degenerative lumbar disc Lumbar stenosis without neurogenic claudication History of osteoporosis Paresthesia of right lower extremity Lumbar radicular pain Lumbar spondylosis Dyspnea on exertion Post-nasal drip Joint pain in both hands Myalgia Arthritis Osteoporosis with fracture (Chronic) steroid induced, on reclast Peripheral neuropathy Obstructive sleep apnea "moderate" RONNIE: no device (non-compliant) Vitamin D deficiency (Chronic) Insomnia (Chronic) Chronic low back pain Prepatellar bursitis, left knee Unsteady gait (Acute) Neurogenic claudication Dyspnea Systolic murmur Iron deficiency anemia Aortic stenosis Now Moderate echo 01/22 Hypertension GERD (gastroesophageal reflux disease) (Chronic) BPH (benign prostatic hyperplasia) CAD (coronary artery disease) stents x5 total (~2002 & 2010) 2017 cardiac cath with 2V occlusive disease with patent stents (recommendations for medical management) Cervical spine degeneration Sarcoidosis stable, no longer on pred Dyslipidemia Medical History History of trigger finger Hx of Clostridium difficile infection Anxiety and depression Anemia CVA (cerebral vascular accident) Pulmonary embolism (~2010) Deep vein thrombosis Myocardial Infarction (~2002) History of tumor Glaucoma Surgical History History of tooth extraction History of repair of rotator cuff S/P tendon repair S/P arthroscopy of left shoulder S/P epidural steroid injection History of esophagogastroduodenoscopy (EGD) History of colonoscopy History of vitrectomy History of heart artery stent History of cardiac cath Status post repair of nerve H/O inguinal hernia repair H/O hand surgery H/O brain surgery Family History Mother Congestive heart failure Cardiac disorder COPD (chronic obstructive pulmonary disease) Hypertension Father Prostate cancer COPD (chronic obstructive pulmonary disease) Son Family history of diabetes mellitus Other No family history of adverse response to anesthesia Denies family history of Ovarian cancer Myocardial infarction Breast cancer Colorectal cancer Social History Smoking Status: Never smoker Second Hand Exposure: No; Do You Dip or Chew Tobacco: No; Hx Alcohol Use: No Hx Substance Use: No Preferred Language: Romansh Communication Ability: Effective Visual Impairment: No Limitations Hearing Ability: Normal Hand Sander Required: No Beliefs That Will Affect Care: None marital status: Current Living Situation: Spouse current occupational status: retired current occupation: [employer] How many Children do You have: 2 Feels Safe at Home: Yes Childhood Exposure to Second-Hand Smoke: No Diet: regular caffeine: Yes Dental Care, Regularly: Yes Physical Activity Frequency: Daily Seatbelt Use: always Sunscreen Use: No Assistive Devices: Glasses Allergies Allergies Allergy/AdvReac Type Severity Reaction Status Date / Time No Known Drug Allergies Allergy Unknown . Verified 04/15/25 09:25 Home Meds Home Medications Medication Instructions Recorded Confirmed calcium 600 mg (as 1 tab PO QAM 12/13/18 06/01/25 carbonate)-vitamin D3 5 mcg (200 unit) tablet nitroglycerin 0.4 mg sublingual 0.4 mg sublingual UD PRN Chest Pain 12/13/18 06/01/25 tablet aspirin 81 mg tablet,delayed 81 mg PO QAM 06/10/19 06/01/25 release coQ10 (ubiquinol) 200 mg capsule 200 mg PO QAM 06/10/19 06/01/25 cholecalciferol (vitamin D3) 50 2,000 unit PO QAM 09/03/19 06/01/25 mcg (2,000 unit) tablet (Vitamin D3) metformin 500 mg tablet,extended 500 mg PO BID 04/15/25 06/01/25 release 24 hr vitamin B complex 1 tab PO DAILY 04/15/25 06/01/25 celecoxib 100 mg capsule 100 mg PO BID 06/01/25 06/01/25 pantoprazole 40 mg tablet,delayed 40 mg PO QAM 06/01/25 06/01/25 release tramadol 50 mg tablet 50 - 100 mg PO HS PRN pain 06/01/25 06/01/25 zolpidem 5 mg tablet 5 mg PO DAILY 06/01/25 06/01/25 Previous Rx's Medication Instructions Recorded tamsulosin 0.4 mg capsule 0.4 mg PO QPM #90 caps 03/19/24 metoprolol succinate 25 mg 25 mg PO QAM #90 tabs 07/23/24 tablet,extended release 24 hr escitalopram oxalate 20 mg tablet 20 mg PO QPM #90 tabs 09/07/24 (Lexapro) lisinopril 10 mg tablet 10 mg PO BID #180 tabs 10/15/24 atorvastatin 40 mg tablet 40 mg PO HS #90 tabs 01/03/25 gabapentin 300 mg capsule 300 mg PO DAILY PRN low back pain 03/22/25 #90 caps Results & Data (ED) Vital Signs Vital Signs - 24 hr 06/01/25 07:23 06/01/25 07:39 06/01/25 08:00 Temperature 36.6 C Temperature Source Temporal Artery Scan Pulse Rate 78 74 Pulse Rate [Apical] 78 Pulse Rhythm [Apical] Regular Pulse Strength [Apical] Normal Respiratory Rate 18 11 L Respiratory Effort / Characteristics Non-Labored Spontaneous Respiratory Depth Normal Respiratory Pattern Regular Blood Pressure 177/78 H Blood Pressure [Right Arm] 166/83 H Blood Pressure Mean 111 Blood Pressure Mean [Right Arm] 110 Blood Pressure Position [Right Arm] Sitting Pulse Oximetry 94 97 Oxygen Delivery Method Room Air Sepsis Recent Fever Within 48 Hours No Sepsis New/Unexplained Change in Mental Status N/A Sepsis Action Taken by Nursing No Action Required 06/01/25 09:23 06/01/25 11:00 Temperature Temperature Source Pulse Rate Pulse Rate [Apical] 77 76 Pulse Rhythm [Apical] Regular Regular Pulse Strength [Apical] Normal Normal Respiratory Rate 16 20 Respiratory Effort / Characteristics Non-Labored Spontaneous Non-Labored Spontaneous Respiratory Depth Normal Normal Respiratory Pattern Regular Regular Blood Pressure Blood Pressure [Right Arm] 153/95 H 182/99 H Blood Pressure Mean Blood Pressure Mean [Right Arm] 114 126 Blood Pressure Position [Right Arm] Sitting Pulse Oximetry 96 95 Oxygen Delivery Method Room Air Room Air Sepsis Recent Fever Within 48 Hours Sepsis New/Unexplained Change in Mental Status Sepsis Action Taken by Nursing Laboratory Data 06/01/25 08:00 06/01/25 08:00 Lab Results 06/01/25 06/01/25 Range/Units 08:00 08:57 WBC 4.13 L (4.8-10.8) K/ul RBC 4.52 L (4.70-6.10) M/uL Hgb 10.4 L (14.0-18.0) g/dl Hct 34.8 L (42.0-52.0) % MCV 77.0 L (80.0-100.0) fL MCH 23.0 L (25.0-34.0) pg MCHC 29.9 L (32.0-36.0) g/dL RDW Std Deviation 46.4 H (36.4-46.3) fL RDW Coeff of Huma 16.8 H (11.5-14.5) % Plt Count 199 (130-400) K/uL MPV 8.5 L (9.4-12.4) fL Immature Gran % (Auto) 0.2 % Neut % (Auto) 59.0 % Lymph % (Auto) 21.8 % Cuming % (Auto) 11.4 % Eos % (Auto) 6.1 % Baso % (Auto) 1.5 % Neut # (Auto) 2.44 (1.40-6.50) K/uL Lymph # (Auto) 0.90 L (1.20-3.40) K/uL Cuming # (Auto) 0.47 (0.11-0.59) K/uL Eos # (Auto) 0.25 (0.00-0.50) K/uL Baso # (Auto) 0.06 (0.00-0.20) K/uL Immature Gran # (Auto) 0.01 (0.01-0.20) K/uL PT 11.2 (9.0-12.0) Seconds INR 1.1 (0.9-1.1) APTT 22 (21-31) Seconds PTT Ratio 0.8 Sodium 140 (136-145) mmol/L Potassium 4.7 (3.5-5.1) mmol/L Chloride 105 (98-107) mmol/L Carbon Dioxide 31 (21-32) mmol/L Anion Gap 4 (3-11) BUN 18 (6-23) mg/dl Creatinine 0.94 (0.6-1.4) mg/dl Est Cr Clr Drug Dosing 74.8 ml/min eGFR 85.60 BUN/Creatinine Ratio 19.1 (10-20) Glucose 108 H (70-99(Fasting)) mg/dl Calcium 9.2 (8.6-10.3) mg/dl Magnesium 2.1 (1.7-2.4) mg/dl Total Bilirubin 0.9 (0.2-1.0) mg/dl Direct Bilirubin 0.1 (0-0.2) mg/dl AST 28 (13-39) U/L ALT 26 (7-52) U/L Alkaline Phosphatase 47 (34-104) U/L Troponin I High Sens 12.9 (0-20) pg/ml B-Natriuretic Peptide 103 H (0-100) pg/ml Total Protein 6.7 (6.0-8.3) gm/dl Albumin 4.3 (3.4-5.0) gm/dl Lipase 50 (11-82) U/L Urine Color Yellow Urine Appearance Clear (Clear) Urine pH 8.0 H (4.5-7.5) Ur Specific [place] 1.011 (1.000-1.030) Urine Protein Negative (Negative) Urine Glucose (UA) Negative (Negative) Urine Ketones Negative (Negative) Urine Blood Negative (Negative) Urine Nitrite Negative (Negative) Urine Bilirubin Negative (Negative) Urine Urobilinogen Negative (Negative) Ur Leukocyte Esterase Trace H (Negative) Urine WBC (Auto) 0-5 (0-5) /hpf Urine RBC (Auto) 0-2 (0-2) /hpf U Hyaline Cast (Auto) 0-2 (0-2) /lpf U Epithel Cells (Auto) 0-2 (0-2) /hpf Urine Bacteria (Auto) None Seen (None Seen) Urine Comment Administered Medications Discontinued Medications Furosemide (Furosemide 40 Mg/4 Ml Vial) 40 mg IV ONE ONE Stop: 06/01/25 09:44 Last Admin: 06/01/25 10:08 Dose: 40 mg Documented By: [facility] Data Radiologist's Impression: Chest X-Ray 06/01/25 07:39 XR chest 1V portable CLINICAL HISTORY: shortness of breath COMPARISON STUDY: 07/01/2021 FINDINGS: Stable moderate hiatal hernia. Stable mild cardiomegaly with mild pulmonary vascular congestion. No consolidation or pleural effusion seen. No pneumothorax. IMPRESSION: Mild CHF. ACT 112: Negative or not required by law. Electronically signed by: Papito Miranda M.D. 06/01/2025 8:20 AM Discharge Plan Visit Data Chief Complaint: Hypertension Stated Complaint: HYPERTENSION ED Provider: Laurent Maldonado Discharge Problem: Acute congestive heart failure, Aortic stenosis Patient Disposition: Home - Self-Care Condition: Fair Discharge Problem: Acute congestive heart failure Qualifiers: Heart failure type: unspecified Qualified Code(s): I50.9 - Heart failure, unspecified Aortic stenosis Qualifiers: Cardiac valve disease etiology: etiology unspecified Qualified Code(s): I35.0 - Nonrheumatic aortic (valve) stenosis
[2025-06-01 08:21] LABS: Hematocrit (blood only) 34.8 % (42.0-52.0); Hemoglobin 10.4 g/dl (14.0-18.0); Immature Granulocytes # (auto) 0.01 K/uL (0.01-0.20); Immature Granulocytes % (auto) 0.2 %; Mean Corpuscular Hemoglobin 23.0 pg (25.0-34.0); Mean Corpuscular Volume 77.0 fL (80.0-100.0); Platelet Count 199 K/uL (130-400); RDW Standard Deviation 46.4 fL (36.4-46.3); Red Blood Count 4.52 M/uL (4.70-6.10); White Blood Count 4.13 K/ul (4.8-10.8)
--- NOTE | 2025-06-01 08:22 | XRay Report ---
XR chest 1V portable CLINICAL HISTORY: shortness of breath COMPARISON STUDY: 07/01/2021 FINDINGS: Stable moderate hiatal hernia. Stable mild cardiomegaly with mild pulmonary vascular conges tion. No consolidation or pleural effusion seen. No pneumothorax. IMPRESSION: Mild CHF. ACT 112: Negative or not required by law. Electronically signed by: Papito Miranda M.D. 06/01/2025 8:20 AM
[2025-06-01 08:41] LABS: Alanine Aminotransferase 26.0 U/L (7-52); Albumin Level 4.3 gm/dl (3.4-5.0); Alkaline Phosphatase 47.0 U/L (34-104); Anion Gap 4.0 (3-11); Bilirubin,Total 0.9 mg/dl (0.2-1.0); Blood Urea Nitrogen 18.0 mg/dl (6-23); Calcium 9.2 mg/dl (8.6-10.3); Carbon Dioxide 31.0 mmol/L (21-32); Chloride 105.0 mmol/L (98-107); Creatinine Clr Calc Pharmacy 74.8 ml/min; Glucose 108.0 mg/dl (70-99(Fasting)); Lipase 50.0 U/L (11-82); Magnesium 2.1 mg/dl (1.7-2.4); Potassium 4.7 mmol/L (3.5-5.1); Sodium 140.0 mmol/L (136-145); Total Protein 6.7 gm/dl (6.0-8.3)
[2025-06-01 08:54] LABS: INR 1.1 (0.9-1.1); Partial Thromboplastin Time 22 Seconds (21-31); Prothrombin Time 11.2 Seconds (9.0-12.0)
[2025-06-01 09:42] LABS: Appearance Urine Clear (Clear); Bacteria Urine Automated None Seen (None Seen); Cast Urine Automated 0-2 /lpf (0-2); Epithelial Cell Urine Auto 0-2 /hpf (0-2); Glucose Urine UA Negative (Negative); RBC Urine Automated 0-2 /hpf (0-2); WBC Urine Automated 0-5 /hpf (0-5)
[2025-06-01] MEDS: FUROSEMIDE 40 MG/4 ML VIAL IV ONE (10:08)
--- NOTE | 2025-06-01 10:46 | History & Physical Report ---
Date of Service June 01, 2025 Assessment & Plan (1) Aortic stenosis: (2) CVA (cerebral vascular accident): (3) Deep vein thrombosis: (4) Myocardial Infarction: (5) Anemia: (6) Anxiety and depression: (7) Osteoporosis with fracture: (8) Obstructive sleep apnea: (9) Systolic murmur: (10) GERD (gastroesophageal reflux disease): (11) BPH (benign prostatic hyperplasia): (12) CAD (coronary artery disease): (13) Dyslipidemia: Plan #Volume overload #HFpEF #Moderate to severe aortic stenosis -Recent heart echocardiogram shows progression of the recent AAS, he has followed with cardiology, underlying-coronary disease no clear ischemic cardiomyopathy -Admit telemetry, diuresis initiated in the emergency department -Continue with Lasix 20 mg IV twice daily, if this is all indeed related to his aortic stenosis given his pattern he is likely to be quite preload dependent, monitor closely for hypotension, orthostatic vital changes - Consult cardiology, timing of echocardiogram and recheck per recommendation -Daily renal function monitoring #CAD - No chest pain, remote history of stenting, continue aspirin #Type 2 diabetes - Continue metformin, sliding scale as needed given current stress response #HTN - Continue metoprolol and lisinopril #Hypertension #Peripheral neuropathy #Neurogenic claudication - Continue gabapentin, tramadol as needed #Hyperlipidemia -Continue statin #RONNIE - Mild per previous diagnosis, he has been unable to tolerate CPAP in the past - Uses zolpidem chronically, will continue at bedtime #Depression/anxiety -Continue escitalopram #BPH - Tolerating Lasix well so far, continue to tamsulosin #Sarcoidosis - Previously on chronic steroids none per several years, no indication for repeat workup - Uncertain significance in terms to current presentation, no known cardiac manifestations, noted grade 2 diastolic dysfunction, CT scan 06/19 showed no significant extensive pulmonary pathology #Chronic low back pain - Tramadol, hold Celebrex #FEN - Cardiac diet, no indication for fluid restriction at this time #CODE STATUS -Full code per his wishes, discussed with the patient and at the bedside at the time of admission History of Present Illness Chief Complaint: Swelling, SOB Primary Care Provider: MI Momin 74 year-old man with coronary artery disease post remote stenting, moderate/severe aortic stenosis, DM2, osteoporosis, hypertension, dyslipidemia. RONNIE, neurogenic claudication, chronic low back pain BPH, GERD, sarcoidosis presents to the emergency department with significantly elevated blood pressures, edema in his shoulders and face, shortness of breath that has been progressive over the last several weeks. Reportedly seen in the cardiology clinic with shortness of breath. Echocardiogram was done which he had not received the results from yet but demonstrates moderate to severe aortic stenosis. This has been under surveillance with cardiology for quite some time. Not on a diuretic at the current time. Has noted the increase in the edema and progressive dyspnea on exertion over the last probably 2 to 4 weeks. After the blood pressures were quite severely elevated he developed some mild chest pain and pressure last night persistent through the day this morning so he came to the emergency department for evaluation. Initial evaluation consistent with volume overload state, lower extremity edema, edema on chest x-ray and the nonpitting edema in the upper portion of body. Secondary to this Lasix was initiated. He was referred for admission for further evaluation, close monitoring, ongoing daily diuresis and cardiology consultation. Allergies Allergy/AdvReac Type Severity Reaction Status Date / Time No Known Drug Allergies Allergy Unknown . Verified 04/15/25 09:25 Home Medications Medication Instructions Recorded Confirmed Type calcium 600 mg (as 1 tab PO QAM 12/13/18 06/01/25 History carbonate)-vitamin D3 5 mcg (200 unit) tablet nitroglycerin 0.4 mg sublingual 0.4 mg sublingual UD PRN Chest Pain 12/13/18 06/01/25 History tablet aspirin 81 mg tablet,delayed 81 mg PO QAM 06/10/19 06/01/25 History release coQ10 (ubiquinol) 200 mg capsule 200 mg PO QAM 06/10/19 06/01/25 History cholecalciferol (vitamin D3) 50 2,000 unit PO QAM 09/03/19 06/01/25 History mcg (2,000 unit) tablet (Vitamin D3) tamsulosin 0.4 mg capsule 0.4 mg PO QPM #90 caps 03/19/24 06/01/25 Rx metoprolol succinate 25 mg 25 mg PO QAM #90 tabs 07/23/24 06/01/25 Rx tablet,extended release 24 hr escitalopram oxalate 20 mg tablet 20 mg PO QPM #90 tabs 09/07/24 06/01/25 Rx (Lexapro) lisinopril 10 mg tablet 10 mg PO BID #180 tabs 10/15/24 06/01/25 Rx atorvastatin 40 mg tablet 40 mg PO HS #90 tabs 01/03/25 06/01/25 Rx gabapentin 300 mg capsule 300 mg PO DAILY PRN low back pain 03/22/25 06/01/25 Rx #90 caps metformin 500 mg tablet,extended 500 mg PO BID 04/15/25 06/01/25 History release 24 hr vitamin B complex 1 tab PO DAILY 04/15/25 06/01/25 History celecoxib 100 mg capsule 100 mg PO BID 06/01/25 06/01/25 History pantoprazole 40 mg tablet,delayed 40 mg PO QAM 06/01/25 06/01/25 History release tramadol 50 mg tablet 50 - 100 mg PO HS PRN pain 06/01/25 06/01/25 History zolpidem 5 mg tablet 5 mg PO DAILY 06/01/25 06/01/25 History Past Med/Surg History Problem List (Updated 12/13/24 @ 15:17 by MI Momin) Diabetes mellitus Degenerative lumbar disc Lumbar stenosis without neurogenic claudication History of osteoporosis Paresthesia of right lower extremity Lumbar radicular pain Lumbar spondylosis Dyspnea on exertion Post-nasal drip Joint pain in both hands Myalgia Arthritis Osteoporosis with fracture (Chronic) steroid induced, on reclast Peripheral neuropathy Obstructive sleep apnea "moderate" RONNIE: no device (non-compliant) Vitamin D deficiency (Chronic) Insomnia (Chronic) Chronic low back pain Prepatellar bursitis, left knee Unsteady gait (Acute) Neurogenic claudication Dyspnea Systolic murmur Iron deficiency anemia Aortic stenosis Now Moderate echo 01/22 Hypertension GERD (gastroesophageal reflux disease) (Chronic) BPH (benign prostatic hyperplasia) CAD (coronary artery disease) stents x5 total (~2002 & 2010) 2017 cardiac cath with 2V occlusive disease with patent stents (recommendations for medical management) Cervical spine degeneration Sarcoidosis stable, no longer on pred Dyslipidemia Medical History History of trigger finger Hx of Clostridium difficile infection Anxiety and depression Anemia CVA (cerebral vascular accident) Pulmonary embolism (~2010) Deep vein thrombosis Myocardial Infarction (~2002) History of tumor Glaucoma Surgical History History of tooth extraction History of repair of rotator cuff S/P tendon repair S/P arthroscopy of left shoulder S/P epidural steroid injection History of esophagogastroduodenoscopy (EGD) History of colonoscopy History of vitrectomy History of heart artery stent History of cardiac cath Status post repair of nerve H/O inguinal hernia repair H/O hand surgery H/O brain surgery Family History Mother Congestive heart failure Cardiac disorder COPD (chronic obstructive pulmonary disease) Hypertension Father Prostate cancer COPD (chronic obstructive pulmonary disease) Son Family history of diabetes mellitus Other No family history of adverse response to anesthesia Denies family history of Ovarian cancer Myocardial infarction Breast cancer Colorectal cancer Social History Smoking Status: Never smoker Second Hand Exposure: No; Do You Dip or Chew Tobacco: No; Hx Alcohol Use: No Hx Substance Use: No Preferred Language: Tunisian Communication Ability: Effective Visual Impairment: No Limitations Hearing Ability: Normal 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 Denies PND or orthopnea. No dizziness or orthostasis. Eyes: no problem reported Ear, Nose, Mouth, Throat: no sinus pain/pressure and no change in voice Respiratory: See HPI Cardiovascular: no dyspnea at rest and no syncope Gastrointestinal: no bloating, no nausea and no vomiting Musculoskeletal: no stiffness and no body aches Integumentary: no rash, no change in skin color and no problem reported Neurologic: no gait abnormality, no unsteadiness, no falls, no abnormal speech and no confusion Physical Exam Physical Exam: General: A&Ox3. NAD. Cooperative. HEENT: Atraumatic, normocephalic. Vision and hearing grossly intact. Pupils equal and reactive to light, sclera clear and anicteric, mild nonpitting edema in the face and head Pulm: CTAB A&P. -wheezes, -rales, -rhonchi. No increased work of breathing. No respiratory distress. Cardiac: RRR. 3/6 QUINTON heard troughout the precordium. Radial pulses intact and symmetrical. Abdominal: Nontender, nondistended, soft. BS present. Ext: 1+ Edema bilaterall, Moves all extremities equally NEURO: A&O as above, no focal deficits Skin: warm, moist. Results & Data Results & Data Vital Signs (Past 12 Hours) Vital Signs Temp Pulse Pulse Resp BP BP Pulse Ox 06/01/25 09:23 77 16 153/95 H 96 06/01/25 08:00 74 06/01/25 07:39 78 11 L 166/83 H 97 06/01/25 07:23 36.6 C 78 18 177/78 H 94 O2 Del Method 06/01/25 09:23 Room Air 06/01/25 08:00 06/01/25 07:39 Room Air 06/01/25 07:23 Laboratory Results 06/01/25 06/01/25 08:57 08:00 WBC 4.13 L RBC 4.52 L Hgb 10.4 L Hct 34.8 L MCV 77.0 L MCH 23.0 L MCHC 29.9 L RDW Std Deviation 46.4 H RDW Coeff of [place] 16.8 H Plt Count 199 MPV 8.5 L Immature Gran % (Auto) 0.2 Neut % (Auto) 59.0 Lymph % (Auto) 21.8 [place] % (Auto) 11.4 Eos % (Auto) 6.1 Baso % (Auto) 1.5 Neut # (Auto) 2.44 Lymph # (Auto) 0.90 L [place] # (Auto) 0.47 Eos # (Auto) 0.25 Baso # (Auto) 0.06 Immature Gran # (Auto) 0.01 PT 11.2 INR 1.1 APTT 22 PTT Ratio 0.8 Sodium 140 Potassium 4.7 Chloride 105 Carbon Dioxide 31 Anion Gap 4 BUN 18 Creatinine 0.94 Est Cr Clr Drug Dosing 74.8 eGFR 85.60 BUN/Creatinine Ratio 19.1 Glucose 108 H Calcium 9.2 Magnesium 2.1 Total Bilirubin 0.9 Direct Bilirubin 0.1 AST 28 ALT 26 Alkaline Phosphatase 47 Troponin I High Sens 12.9 B-Natriuretic Peptide 103 H Total Protein 6.7 Albumin 4.3 Lipase 50 Urine Color Yellow Urine Appearance Clear Urine pH 8.0 H Ur Specific [place] 1.011 Urine Protein Negative Urine Glucose (UA) Negative Urine Ketones Negative Urine Blood Negative Urine Nitrite Negative Urine Bilirubin Negative Urine Urobilinogen Negative Ur Leukocyte Esterase Trace H Urine WBC (Auto) 0-5 Urine RBC (Auto) 0-2 U Hyaline Cast (Auto) 0-2 U Epithel Cells (Auto) 0-2 Urine Bacteria (Auto) None Seen Urine Comment Diagnostic Findings Chest X-Ray 06/01/25 07:39 XR chest 1V portable CLINICAL HISTORY: shortness of breath COMPARISON STUDY: 07/01/2021 FINDINGS: Stable moderate hiatal hernia. Stable mild cardiomegaly with mild pulmonary vascular congestion. No consolidation or pleural effusion seen. No pneumothorax. IMPRESSION: Mild CHF. ACT 112: Negative or not required by law. Electronically signed by: Papito Miranda M.D. 06/01/2025 8:20 AM PG Care Time/CCT Total # of Minutes Spent Total Time Spent with Patient: Total time spent is greater than 50% in coordination of care (as documented) at patient's floor/unit and/or counseling patient: Coding Level of Care Code 62435 INT INP/OBS CARE 255MIN Diagnoses Nonrheumatic aortic valve stenosis I35.0 Cardiac valve disease etiology: nonrheumatic CVA (cerebral vascular accident) I63.9 Deep vein thrombosis I82.409 Myocardial Infarction I21.9 Anemia D64.9 Anxiety and depression F41.9; F32.A Osteoporosis with fracture M80.80XA Obstructive sleep apnea G47.33 Systolic murmur R01.1 GERD (gastroesophageal reflux disease) K21.9 BPH (benign prostatic hyperplasia) N40.0 Coronary artery disease involving [place] heart without angina pectoris, unspecified vessel or lesion type I25.10 Associated angina: without angina Coronary Disease-Associated Artery/Lesion type: unspecified vessel or lesion type [place] vs. transplanted heart: [place] heart Dyslipidemia E78.5 (1) Aortic stenosis Cardiac valve disease etiology: nonrheumatic Qualified Code(s): I35.0 - Nonrheumatic aortic (valve) stenosis (12) CAD (coronary artery disease) Associated angina: without angina Coronary Disease-Associated Artery/Lesion type: unspecified vessel or lesion type [place] vs. transplanted heart: [place] heart Qualified Code(s): I25.10 - Atherosclerotic heart disease of [place] coronary artery without angina pectoris
[2025-06-01] MEDS ORDERED: ONDANSETRON INJ 2 MG/ML 2 ML VIAL IV PRN (16:04)
[2025-06-01] MEDS: FUROSEMIDE 40 MG/4 ML VIAL IV SCH (17:38)
[2025-06-01] MEDS: ACETAMINOPHEN 325 MG TAB PO PRN (19:38)
[2025-06-01] MEDS: HEPARIN SOD 5,000 UNIT/0.5 ML VIAL SQ SCH (20:20)
[2025-06-01] MEDS: CELECOXIB 100 MG CAP PO SCH (20:20)
[2025-06-01] MEDS: ATORVASTATIN 40 MG TAB PO SCH (20:20)
[2025-06-01] MEDS: TAMSULOSIN HCL 0.4 MG CAP PO SCH (20:20)
[2025-06-01] MEDS: ESCITALOPRAM OXALATE 20 MG TAB PO SCH (20:20)
[2025-06-01] MEDS: ZOLPIDEM TARTRATE 5 MG TAB PO SCH (22:03)
[2025-06-01] MEDS ORDERED: SIMETHICONE 80 MG CHEW PO PRN (22:10)
[2025-06-02] MEDS: GABAPENTIN 300 MG CAP PO PRN (03:28)
--- NOTE | 2025-06-02 05:48 | Electrocardiogram Report ---
Test Reason : Blood Pressure : */* mmHG Vent. Rate : 76 BPM Atrial Rate : 76 BPM P-R Int : 146 ms QRS Dur : 74 ms QT Int : 370 ms P-R-T Axes : 59 51 71 degrees QTcB Int : 416 ms Normal sinus rhythm Normal ECG When compared with ECG of 03-Aug-2022 01:18, No significant change was found Confirmed by Nazario Quintanilla ([id number]) on 06/02/2025 5:48:51 AM Referred By: REFERRED SELF Confirmed By: Nazario Quintanilla
[2025-06-02 08:29] LABS: Albumin Level 4.3 gm/dl (3.4-5.0); Anion Gap 7.0 (3-11); Bilirubin,Total 1.0 mg/dl (0.2-1.0); Calcium 9.3 mg/dl (8.6-10.3); Carbon Dioxide 27.0 mmol/L (21-32); Chloride 104.0 mmol/L (98-107); Magnesium 2.0 mg/dl (1.7-2.4); Potassium 4.1 mmol/L (3.5-5.1); Sodium 138.0 mmol/L (136-145)
[2025-06-02 08:35] LABS: Alanine Aminotransferase 22.0 U/L (7-52); Albumin Globulin Ratio 1.7 (0.9-2); Alkaline Phosphatase 44.0 U/L (34-104); Blood Urea Nitrogen 20.0 mg/dl (6-23); Creatinine Clr Calc Pharmacy 77.8 ml/min; Globulin 2.5 gm/dl (2.5-4.0); Glucose 112.0 mg/dl (70-99(Fasting)); Total Protein 6.8 gm/dl (6.0-8.3)
[2025-06-02] MEDS: METOPROLOL SUCC 25MG EXT REL TAB PO SCH (08:42)
[2025-06-02] MEDS: VITAMIN B COMPLEX TAB PO SCH (08:42)
[2025-06-02] MEDS: ASPIRIN 81 MG ECTAB PO SCH (08:42)
[2025-06-02] MEDS: CALCIUM 600MG + VIT D 400 IU TAB PO SCH (08:43)
[2025-06-02 08:53] LABS: Hematocrit (blood only) 37.3 % (42.0-52.0); Hemoglobin 11.3 g/dl (14.0-18.0); Immature Granulocytes # (auto) 0.01 K/uL (0.01-0.20); Immature Granulocytes % (auto) 0.3 %; Mean Corpuscular Hemoglobin 23.2 pg (25.0-34.0); Mean Corpuscular Volume 76.4 fL (80.0-100.0); Platelet Count 214 K/uL (130-400); RDW Standard Deviation 45.6 fL (36.4-46.3); Red Blood Count 4.88 M/uL (4.70-6.10); White Blood Count 3.98 K/ul (4.8-10.8)
[2025-06-02] MEDS ORDERED: NON-FORMULARY MEDICATION (Coq10 (Ubiquinol) 200 mg Capsule) PO SCH (09:00)
--- NOTE | 2025-06-02 09:45 | Cardiology Consultation ---
Date of Consultation June 02, 2025 Assessment & Plan (1) Aortic stenosis: (2) Dyspnea on exertion: (3) CAD (coronary artery disease): (4) Dyslipidemia: (5) Hypertension: Plan ASSESSMENT/PLAN: 1. Dyspnea on exertion: He does not appear to be significantly hypervolemic and unfortunately fluid balance is incomplete. Dyspnea on exertion could be related to progressive aortic stenosis, underlying coronary artery disease, or other etiology. Given borderline severe aortic stenosis, could consider coronary angiography in anticipation of possible aortic valve replacement. Will ultimately defer to Dr. Massey, his primary jewel sawyer, who will resume his care tomorrow. N.p.o. after midnight. 2. Aortic stenosis: Borderline severe aortic stenosis. We discussed natural history. Given worsening dyspnea on exertion, consider coronary angiography in anticipation of aortic valve replacement evaluation. 3. CAD s/p prior LAD and circumflex PCI: Has known jailed severe stenosis involving ostial diagonal. No angina but worsening dyspnea on exertion. Continue antiplatelet therapy indefinitely given prior PCI. Consideration for coronary angiography in anticipation of AVR evaluation. Continue high intensity statin therapy. 4. Hypertension: Blood pressure mostly normotensive to mildly hypertensive today. Continue current regimen. Can discontinue intravenous diuretic. Low- sodium diet. 5. Dyslipidemia: Continue high intensity statin therapy. 6. Disposition: Dr. Massey, his primary jewel sawyer, will continue his cardiology care tomorrow. Plan of care communicated with primary hospitalist. Thank you for allowing me to participate in the care of your patient. Please call for any other questions or concerns. Sincerely, Herve Quintanilla M.D. History of Present Illness Reason for Consultation: ; CAD Requesting Physician: Trent Lopez MD Attending Physician: Trent Lopez MD History of Present Illness Mr. Garcia is a very pleasant 74-year-old gentleman with history significant for aortic stenosis, CAD s/p LAD and circumflex stents, prior IA, hypertension, dyslipidemia, sarcoidosis, iron deficiency anemia, and sleep apnea (not on CPAP). His primary jewel sawyer is Dr. Massey. He was admitted on 06/01/2025 with worsened dyspnea on exertion. He states that the main reason he came to the hospital because he was worried about his systolic blood pressure which had been increasing up to 155 mmHg. He has chr onic dyspnea on exertion but since he has seen Dr. Massey on 04/15/2025, dyspnea on exertion has worsened. He is now dyspneic on exertion climbing 1 flight of stairs. He has bilateral lower extremity edema which he believes is stable. He does not consume large amounts of sodium. His weight has been stable. He denies chest pain, syncope, near syncope, palpitations, melena, hematochezia, or hematuria. Since being here, he has received intravenous diuretics and feels better. He feels more relaxed. He had full body tightness but denies exertional angina. The full body tightness has resolved. He has had diarrhea for the past 4 days, once or twice per day. He recently started metformin. He has an appointment with GI in 2 days. Review of systems: As above. Family history: Mother had heart failure and at 52. Social history: Denies tobacco, alcohol, or drug abuse. Lives at home with his . Has a son and a daughter. 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 His was present at the bedside. Allergies Allergy/AdvReac Type Severity Reaction Status Date / Time No Known Drug Allergies Allergy Unknown . Verified 04/15/25 09:25 Home Medications Medication Instructions Recorded Confirmed Type calcium 600 mg (as 1 tab PO QAM 12/13/18 06/01/25 History carbonate)-vitamin D3 5 mcg (200 unit) tablet nitroglycerin 0.4 mg sublingual 0.4 mg sublingual UD PRN Chest Pain 12/13/18 06/01/25 History tablet aspirin 81 mg tablet,delayed 81 mg PO QAM 06/10/19 06/01/25 History release coQ10 (ubiquinol) 200 mg capsule 200 mg PO QAM 06/10/19 06/01/25 History cholecalciferol (vitamin D3) 50 2,000 unit PO QAM 09/03/19 06/01/25 History mcg (2,000 unit) tablet (Vitamin D3) tamsulosin 0.4 mg capsule 0.4 mg PO QPM #90 caps 03/19/24 06/01/25 Rx metoprolol succinate 25 mg 25 mg PO QAM #90 tabs 07/23/24 06/01/25 Rx tablet,extended release 24 hr escitalopram oxalate 20 mg tablet 20 mg PO QPM #90 tabs 09/07/24 06/01/25 Rx (Lexapro) lisinopril 10 mg tablet 10 mg PO BID #180 tabs 10/15/24 06/01/25 Rx atorvastatin 40 mg tablet 40 mg PO HS #90 tabs 01/03/25 06/01/25 Rx gabapentin 300 mg capsule 300 mg PO DAILY PRN low back pain 03/22/25 06/01/25 Rx #90 caps metformin 500 mg tablet,extended 500 mg PO BID 04/15/25 06/01/25 History release 24 hr vitamin B complex 1 tab PO DAILY 04/15/25 06/01/25 History celecoxib 100 mg capsule 100 mg PO BID 06/01/25 06/01/25 History pantoprazole 40 mg tablet,delayed 40 mg PO QAM 06/01/25 06/01/25 History release tramadol 50 mg tablet 50 - 100 mg PO HS PRN pain 06/01/25 06/01/25 History zolpidem 5 mg tablet 5 mg PO DAILY 06/01/25 06/01/25 History Patient History Medical History History of trigger finger both hands on pointer finger, ring finger and little finger Hx of Clostridium difficile infection Anxiety and depression Anemia CVA (cerebral vascular accident) 2010 (per cardiology note/patient denies during PAT interview) Pulmonary embolism (~2010) 2010 DX SUBDURAL HEMATOMA (WAS ON ELIQUIS FOR [place]) Deep vein thrombosis RLE (2010) DX SUBDURAL HEMATOMA Myocardial Infarction (~2002) ? YEAR 2002 History of tumor Excision of abdominal wall tumor Glaucoma Surgical History History of tooth extraction History of repair of rotator cuff S/P tendon repair S/P arthroscopy of left shoulder S/P epidural steroid injection History of esophagogastroduodenoscopy (EGD) History of colonoscopy History of vitrectomy History of heart artery stent History of cardiac cath Status post repair of nerve H/O inguinal hernia repair H/O hand surgery H/O brain surgery Family History Mother Congestive heart failure Cardiac disorder COPD (chronic obstructive pulmonary disease) Hypertension Father Prostate cancer COPD (chronic obstructive pulmonary disease) Son Family history of diabetes mellitus Other No family history of adverse response to anesthesia Denies family history of Ovarian cancer Myocardial infarction Breast cancer Colorectal cancer Social History Smoking Status: Never smoker Second Hand Exposure: No; Do You Dip or Chew Tobacco: No; Hx Alcohol Use: No Hx Substance Use: No Preferred Language: Hungarian Communication Ability: Effective Visual Impairment: No Limitations Hearing Ability: Normal 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 Alert and oriented. HEENT: Anicteric sclera. Neck: No JVD. No hepatojugular reflux. Bilateral bruits vs radiation of cardiac murmur. Normal carotid upstrokes bilaterally. Cardiac: Regular. Normal S1-S2. 2/6 mid peaking systolic ejection murmur heard best at right upper sternal border. No rubs or gallops. Pulmonary: Clear to auscultation bilaterally without wheezes, rales, or rhonchi. Abdomen: Soft, nontender, nondistended, with normoactive bowel sounds. No bruits noted. Extremities: 2+ radial pulses bilaterally. 2+ posterior tibialis pulses bilaterally. Trace bilateral pedal edema. No cyanosis. Psychiatric: Affect appears appropriate. Results & Data Vital Signs (Past 12 Hours) Vital Signs Temp Pulse Pulse Resp BP Pulse Ox O2 Del Method 06/02/25 08:28 36.6 C 78 18 143/70 H 94 Room Air 06/02/25 07:08 71 06/02/25 02:18 36.6 C 77 16 127/74 96 Room Air Intake & Output 05/31/25 06/01/25 06/02/25 06/03/25 07:59 07:59 06:59 06:59 Intake Total Balance Weight Laboratory Results Laboratory Results - last 24 hr 06/01/25 06/02/25 06/02/25 17:05 07:52 08:30 WBC Cancelled 3.98 L RBC Cancelled 4.88 Hgb Cancelled 11.3 L Hct Cancelled 37.3 L MCV Cancelled 76.4 L MCH Cancelled 23.2 L MCHC Cancelled 30.3 L RDW Std Deviation Cancelled 45.6 RDW Coeff of Huma Cancelled 16.8 H Plt Count Cancelled 214 MPV Cancelled 9.2 L Immature Gran % (Auto) Cancelled 0.3 Neut % (Auto) Cancelled 63.3 Lymph % (Auto) Cancelled 19.3 [place] % (Auto) Cancelled 11.8 Eos % (Auto) Cancelled 4.5 Baso % (Auto) Cancelled 0.8 Neut # (Auto) Cancelled 2.52 Lymph # (Auto) Cancelled 0.77 L [place] # (Auto) Cancelled 0.47 Eos # (Auto) Cancelled 0.18 Baso # (Auto) Cancelled 0.03 Immature Gran # (Auto) Cancelled 0.01 Absolute Nucleated RBC Cancelled Nucleated RBC % (auto) Cancelled Neutrophils % (Manual) Cancelled Band Neutrophils % Cancelled Lymphocytes % (Manual) Cancelled Prolymphocyte % Cancelled Reactive Lymphs % (Man) Cancelled Monocytes % (Manual) Cancelled Eosinophils % (Manual) Cancelled Basophils % (Manual) Cancelled Metamyelocytes % (Man) Cancelled Myelocytes % (Man) Cancelled Promyelocytes % (Man) Cancelled Blast Cells % (Manual) Cancelled Plasma Cell % (Manual) Cancelled Other Cells % Cancelled Nucleated RBC % Cancelled Neutrophils # (Manual) Cancelled Band Neutrophils # Cancelled Total Absolute Neuts Cancelled Lymphocytes # (Manual) Cancelled Prolymphocyte # Cancelled Reactive Lymphs # Cancelled Total Abs Lymphocytes Cancelled Monocytes # (Manual) Cancelled Eosinophils # (Manual) Cancelled Basophils # (Manual) Cancelled Metamyelocytes # (Man) Cancelled Myelocytes # (Manual) Cancelled Promyelocytes # (Man) Cancelled Blast Cells # (Man) Cancelled Plasma Cell # (Manual) Cancelled Other Cells # Cancelled Nucleated RBCs # (Man) Cancelled Hypersegmented Neuts Cancelled Hyposegmented Neuts Cancelled Hypogranular Neuts Cancelled Large Granular Lymphs Cancelled # Lrg Granular Lymphs Cancelled Hairy Cells Cancelled Smudge Cells Cancelled Toxic Granulation Cancelled Toxic Vacuolation Cancelled Dohle Bodies Cancelled Paul Rods Cancelled Platelet Estimate Cancelled Hypogranular Platelets Cancelled Giant Platelets Cancelled Platelet Satelliting Cancelled RBC Morphology Cancelled Polychromasia Cancelled Hypochromasia Cancelled Poikilocytosis Cancelled Basophilic Stippling Cancelled Anisocytosis Cancelled Microcytosis Cancelled Macrocytosis Cancelled Spherocytes Cancelled Pappenheimer Bodies Cancelled Sickle Cells Cancelled Target Cells Cancelled Tear Drop Cells Cancelled Ovalocytes Cancelled Stomatocytes Cancelled Abdul-Brook Bodies Cancelled Echinocytes Cancelled Acanthocytes (Spur) Cancelled Rouleaux Cancelled RBC Agglutinates Cancelled Schistocytes Cancelled Sezary Cell Cancelled Sodium 138 Potassium 4.1 Chloride 104 Carbon Dioxide 27 Anion Gap 7 BUN 20 Creatinine 0.89 Est Cr Clr Drug Dosing 77.8 eGFR 90.49 BUN/Creatinine Ratio 22.5 H Glucose 112 H POC Glucose 147 H Calcium 9.3 Magnesium 2.0 Total Bilirubin 1.0 AST 24 ALT 22 Alkaline Phosphatase 44 B-Natriuretic Peptide 37 Total Protein 6.8 Albumin 4.3 Globulin 2.5 Albumin/Globulin Ratio 1.7 Procalcitonin < 0.02 Blood Parasites ID Cancelled Diagnostic Findings Echo report reviewed 05/16/2025: Normal LV size. EF 55-60%. Normal wall motion. Moderate to severe aortic stenosis (PV 3.9; MG 34; EDA 0.9; DI 0.26). Mild to moderate AI. Mild pulmonary hypertension. ECG personally reviewed 06/01/2025: Sinus rhythm 76 bpm. Labs reviewed and notable for normal BNP, normal high-sensitivity troponin, normal potassium, stable renal function, normal magnesium, normal transaminase levels, chronic mild anemia, mild leukopenia. History and physical report reviewed. Outpatient cardiology note reviewed. Chest x-ray report reviewed from 06/01/2025: Mild pulmonary vascular congestion per radiology. Chest x-ray image personally reviewed: No obvious infiltrate. Pulmonary vascular congestion noted. No significant pleural effusion. Telemetry personally reviewed: Sinus rhythm. Nonsustained SVT and nonsustained atrial tachycardia. Medications Administered Current Inpatient Medications Acetaminophen (Acetaminophen 325 Mg Tab) 650 mg PO Q4H PRN PRN Reason: Pain or Fever Stop: 07/01/25 16:03 Last Admin: 06/02/25 03:03 Dose: 650 mg Aspirin (Aspirin 81 Mg Ectab) 81 mg PO QAM [facility] Stop: 07/02/25 08:59 Last Admin: 06/02/25 08:42 Dose: 81 mg Atorvastatin Calcium (Atorvastatin 40 Mg Tab) 40 mg PO HS NEELA Stop: 07/01/25 20:59 Last Admin: 06/01/25 20:20 Dose: 40 mg Calcium/Vitamin D (Calcium 600mg + Vit D 400 Iu Tab) 1 tab PO QAM NEELA Stop: 07/02/25 08:59 Last Admin: 06/02/25 08:43 Dose: 1 tab Celecoxib (Celecoxib 100 Mg Cap) 100 mg PO BID NEELA Stop: 07/01/25 20:59 Last Admin: 06/02/25 08:43 Dose: 100 mg Escitalopram Oxalate (Escitalopram Oxalate 20 Mg Tab) 20 mg PO QPM NEELA Stop: 07/01/25 20:59 Last Admin: 06/01/25 20:20 Dose: 20 mg Furosemide (Furosemide 40 Mg/4 Ml Vial) 20 mg IV [id number] NEELA Stop: 07/01/25 16:59 Last Admin: 06/01/25 17:38 Dose: 20 mg Gabapentin (Gabapentin 300 Mg Cap) 300 mg PO DAILY PRN PRN Reason: low back pain Stop: 07/01/25 16:03 Last Admin: 06/02/25 03:28 Dose: 300 mg Heparin Sodium (Porcine) (Heparin Sod 5,000 Unit/0.5 Ml Vial) 5,000 units SQ Q12 NEELA Stop: 07/01/25 20:59 Last Admin: 06/02/25 08:44 Dose: 5,000 units Lisinopril (Lisinopril 10 Mg Tab) 10 mg PO BID NEELA Stop: 07/01/25 20:59 Last Admin: 06/02/25 08:43 Dose: 10 mg Metformin HCl (Metformin Hcl Er 500 Mg Tabcr) 500 mg PO BID NEELA Stop: 07/01/25 20:59 Last Admin: 06/02/25 08:43 Dose: 500 mg Metoprolol Succinate (Metoprolol Succ 25mg Ext Rel Tab) 25 mg PO QAM NEELA Stop: 07/02/25 08:59 Last Admin: 06/02/25 08:42 Dose: 25 mg Ondansetron HCl (Ondansetron Inj 2 Mg/Ml 2 Ml Vial) 4 mg IV Q6H PRN PRN Reason: Nausea Stop: 07/01/25 16:03 Pantoprazole Sodium (Pantoprazole 40 Mg Tab) 40 mg PO QAM NEELA Stop: 07/02/25 08:59 Last Admin: 06/02/25 08:42 Dose: 40 mg Simethicone (Simethicone 80 Mg Chew) 80 mg PO Q6H PRN PRN Reason: gas/bloating Stop: 07/01/25 22:09 Tamsulosin HCl (Tamsulosin Hcl 0.4 Mg Cap) 0.4 mg PO QPM NEELA Stop: 07/01/25 20:59 Last Admin: 06/01/25 20:20 Dose: 0.4 mg Tramadol HCl (Tramadol Hcl 50 Mg Tablet) 50 - 100 mg PO HS PRN PRN Reason: pain Stop: 07/01/25 16:03 Vitamin B Complex (Vitamin B Complex Tab) 1 tab PO DAILY NEELA Stop: 07/02/25 08:59 Last Admin: 06/02/25 08:42 Dose: 1 tab Zolpidem Tartrate (Zolpidem Tartrate 5 Mg Tab) 5 mg PO HS NEELA Stop: 07/01/25 20:59 Last Admin: 06/01/25 22:03 Dose: 5 mg PG Care Time/CCT Total # of Minutes Spent Total Time Spent with Patient: Total time spent is greater than 50% in coordination of care (as documented) at patient's floor/unit and/or counseling patient: Coding Level of Care Code 48312 INT INP/OBS CARE 375MIN Diagnoses Aortic stenosis I35.0 Cardiac valve disease etiology: etiology unspecified Dyspnea on exertion R06.09 Coronary artery disease involving kaibab heart without angina pectoris, unspecified vessel or lesion type I25.10 Coronary Disease-Associated Artery/Lesion type: unspecified vessel or lesion type [place] vs. transplanted heart: ka[place]ab heart Associated angina: without angina Dyslipidemia E78.5 Primary hypertension I10 Hypertension type: primary hypertension (1) Aortic stenosis Cardiac valve disease etiology: etiology unspecified Qualified Code(s): I35.0 - Nonrheumatic aortic (valve) stenosis (3) CAD (coronary artery disease) Coronary Disease-Associated Artery/Lesion type: unspecified vessel or lesion type [place] vs. transplanted heart: kaibab heart Associated angina: without angina Qualified Code(s): I25.10 - Atherosclerotic heart disease of kaibab coronary artery without angina pectoris (5) Hypertension Hypertension type: primary hypertension Qualified Code(s): I10 - Essential (primary) hypertension
[2025-06-02] MEDS: FUROSEMIDE INJ 20 MG/2 ML VIAL IV ONE (10:11)
--- NOTE | 2025-06-02 13:16 | Hospitalist Progress Note ---
Date of Service June 02, 2025 Assessment & Plan (1) Aortic stenosis: (2) CVA (cerebral vascular accident): (3) Deep vein thrombosis: (4) Myocardial Infarction: (5) Anemia: (6) Anxiety and depression: (7) Osteoporosis with fracture: (8) Obstructive sleep apnea: (9) Systolic murmur: (10) GERD (gastroesophageal reflux disease): (11) BPH (benign prostatic hyperplasia): (12) CAD (coronary artery disease): (13) Dyslipidemia: Plan #Volume overload #HFpEF #Moderate to severe aortic stenosis -Recent heart echocardiogram shows progression of the recent AAS, he has followed with cardiology, underlying-coronary disease no clear ischemic cardiomyopathy -Admit telemetry, diuresis initiated in the emergency department - Will give an additional 40 mg IV Lasix dose this morning but continue with 20 mg IV daily for gentle diuresis, goal of 1.5-2 L for output for 24 hours. Expect 1-2 more days of diuresis to be necessary -Continue with Lasix 20 mg IV twice daily, if this is all indeed related to his aortic stenosis given his pattern he is likely to be quite preload dependent, monitor closely for hypotension, orthostatic vital changes - Consult cardiology, timing of echocardiogram and recheck per recommendation -Daily renal function monitoring #CAD - No chest pain, remote history of stenting, continue aspirin #Type 2 diabetes - Continue metformin, sliding scale, at goal #HTN - Continue metoprolol and lisinopril #Peripheral neuropathy #Neurogenic claudication - Continue gabapentin, tramadol as needed #Hyperlipidemia -Continue statin #RONNIE - Mild per previous diagnosis, he has been unable to tolerate CPAP in the past - Uses zolpidem chronically, will continue at bedtime #Depression/anxiety -Continue escitalopram #BPH - Tolerating Lasix well so far, continue to tamsulosin #Sarcoidosis - Previously on chronic steroids none per several years, no indication for repeat workup - Uncertain significance in terms to current presentation, no known cardiac manifestations, noted grade 2 diastolic dysfunction, CT scan 06/19 showed no significant extensive pulmonary pathology #Chronic low back pain - Tramadol, hold Celebrex #FEN - Cardiac diet, no indication for fluid restriction at this time #CODE STATUS -Full code per his wishes, discussed with the patient and at the bedside at the time of admission Admission and Anticipated Discharge Date Admission Date: June 01, 2025 Subjective Doing okay this morning. Quite a bit urination with Lasix dose yesterday. The evening 20 mg did not really cause much of an effect. He has some improvement of facial edema. No shortness of breath dizziness or orthostasis. He had breakfast this morning that went okay. We discussed the overall goal with aortic stenosis optimizing reserve without inducing additional symptoms. Will diurese as much as he can tolerate for the short-term. Cardiology consultations were previously discussed. Otherwise no interval events or concerns per patient or nursing staff Physical Exam Physical Exam: General: A&Ox3. NAD. Cooperative. HEENT: Atraumatic, normocephalic. Vision and hearing grossly intact. Pupils equal and reactive to light, sclera clear and anicteric, mild nonpitting edema in the face and head Pulm: CTAB A&P. -wheezes, -rales, -rhonchi. No increased work of breathing. No respiratory distress. Cardiac: RRR. 2/6 QUINTON heard troughout the precordium. Radial pulses intact and symmetrical. Abdominal: Nontender, nondistended, soft. BS present. Ext: 1+ Edema bilaterall, Moves all extremities equally NEURO: A&O as above, no focal deficits Skin: warm, moist. Results & Data Results & Data Vital Signs (Past 12 Hours) Vital Signs Temp Pulse Pulse Resp BP Pulse Ox O2 Del Method 06/02/25 11:55 37.1 C 84 16 114/67 97 Room Air 06/02/25 10:58 Room Air 06/02/25 08:28 36.6 C 78 18 143/70 H 94 Room Air 06/02/25 07:08 71 06/02/25 02:18 36.6 C 77 16 127/74 96 Room Air Laboratory Results 06/02/25 06/02/25 06/02/25 12:07 08:30 07:52 WBC 3.98 L Cancelled RBC 4.88 Cancelled Hgb 11.3 L Cancelled Hct 37.3 L Cancelled MCV 76.4 L Cancelled MCH 23.2 L Cancelled MCHC 30.3 L Cancelled RDW Std Deviation 45.6 Cancelled RDW Coeff of Huma 16.8 H Cancelled Plt Count 214 Cancelled MPV 9.2 L Cancelled Immature Gran % (Auto) 0.3 Cancelled Neut % (Auto) 63.3 Cancelled Lymph % (Auto) 19.3 Cancelled [place] % (Auto) 11.8 Cancelled Eos % (Auto) 4.5 Cancelled Baso % (Auto) 0.8 Cancelled Neut # (Auto) 2.52 Cancelled Lymph # (Auto) 0.77 L Cancelled [place] # (Auto) 0.47 Cancelled Eos # (Auto) 0.18 Cancelled Baso # (Auto) 0.03 Cancelled Immature Gran # (Auto) 0.01 Cancelled Absolute Nucleated RBC Cancelled Nucleated RBC % (auto) Cancelled Neutrophils % (Manual) Cancelled Band Neutrophils % Cancelled Lymphocytes % (Manual) Cancelled Prolymphocyte % Cancelled Reactive Lymphs % (Man) Cancelled Monocytes % (Manual) Cancelled Eosinophils % (Manual) Cancelled Basophils % (Manual) Cancelled Metamyelocytes % (Man) Cancelled Myelocytes % (Man) Cancelled Promyelocytes % (Man) Cancelled Blast Cells % (Manual) Cancelled Plasma Cell % (Manual) Cancelled Other Cells % Cancelled Nucleated RBC % Cancelled Neutrophils # (Manual) Cancelled Band Neutrophils # Cancelled Total Absolute Neuts Cancelled Lymphocytes # (Manual) Cancelled Prolymphocyte # Cancelled Reactive Lymphs # Cancelled Total Abs Lymphocytes Cancelled Monocytes # (Manual) Cancelled Eosinophils # (Manual) Cancelled Basophils # (Manual) Cancelled Metamyelocytes # (Man) Cancelled Myelocytes # (Manual) Cancelled Promyelocytes # (Man) Cancelled Blast Cells # (Man) Cancelled Plasma Cell # (Manual) Cancelled Other Cells # Cancelled Nucleated RBCs # (Man) Cancelled Hypersegmented Neuts Cancelled Hyposegmented Neuts Cancelled Hypogranular Neuts Cancelled Large Granular Lymphs Cancelled # Lrg Granular Lymphs Cancelled Hairy Cells Cancelled Smudge Cells Cancelled Toxic Granulation Cancelled Toxic Vacuolation Cancelled Dohle Bodies Cancelled Paul Rods Cancelled Platelet Estimate Cancelled Hypogranular Platelets Cancelled Giant Platelets Cancelled Platelet Satelliting Cancelled RBC Morphology Cancelled Polychromasia Cancelled Hypochromasia Cancelled Poikilocytosis Cancelled Basophilic Stippling Cancelled Anisocytosis Cancelled Microcytosis Cancelled Macrocytosis Cancelled Spherocytes Cancelled Pappenheimer Bodies Cancelled Sickle Cells Cancelled Target Cells Cancelled Tear Drop Cells Cancelled Ovalocytes Cancelled Stomatocytes Cancelled [place] Bodies Cancelled Echinocytes Cancelled Acanthocytes (Spur) Cancelled Rouleaux Cancelled RBC Agglutinates Cancelled Schistocytes Cancelled Sezary Cell Cancelled Sodium 138 Potassium 4.1 Chloride 104 Carbon Dioxide 27 Anion Gap 7 BUN 20 Creatinine 0.89 Est Cr Clr Drug Dosing 77.8 eGFR 90.49 BUN/Creatinine Ratio 22.5 H Glucose 112 H POC Glucose 91 Calcium 9.3 Magnesium 2.0 Total Bilirubin 1.0 AST 24 ALT 22 Alkaline Phosphatase 44 B-Natriuretic Peptide 37 Total Protein 6.8 Albumin 4.3 Globulin 2.5 Albumin/Globulin Ratio 1.7 Procalcitonin < 0.02 Blood Parasites ID Cancelled 06/01/25 17:05 WBC RBC Hgb Hct MCV MCH MCHC RDW Std Deviation RDW Coeff of [place] Plt Count MPV Immature Gran % (Auto) Neut % (Auto) Lymph % (Auto) [place] % (Auto) Eos % (Auto) Baso % (Auto) Neut # (Auto) Lymph # (Auto) [place] # (Auto) Eos # (Auto) Baso # (Auto) Immature Gran # (Auto) Absolute Nucleated RBC Nucleated RBC % (auto) Neutrophils % (Manual) Band Neutrophils % Lymphocytes % (Manual) Prolymphocyte % Reactive Lymphs % (Man) Monocytes % (Manual) Eosinophils % (Manual) Basophils % (Manual) Metamyelocytes % (Man) Myelocytes % (Man) Promyelocytes % (Man) Blast Cells % (Manual) Plasma Cell % (Manual) Other Cells % Nucleated RBC % Neutrophils # (Manual) Band Neutrophils # Total Absolute Neuts Lymphocytes # (Manual) Prolymphocyte # Reactive Lymphs # Total Abs Lymphocytes Monocytes # (Manual) Eosinophils # (Manual) Basophils # (Manual) Metamyelocytes # (Man) Myelocytes # (Manual) Promyelocytes # (Man) Blast Cells # (Man) Plasma Cell # (Manual) Other Cells # Nucleated RBCs # (Man) Hypersegmented Neuts Hyposegmented Neuts Hypogranular Neuts Large Granular Lymphs # Lrg Granular Lymphs Hairy Cells Smudge Cells Toxic Granulation Toxic Vacuolation Dohle Bodies Paul Rods Platelet Estimate Hypogranular Platelets Giant Platelets Platelet Satelliting RBC Morphology Polychromasia Hypochromasia Poikilocytosis Basophilic Stippling Anisocytosis Microcytosis Macrocytosis Spherocytes Pappenheimer Bodies Sickle Cells Target Cells Tear Drop Cells Ovalocytes Stomatocytes [place] Bodies Echinocytes Acanthocytes (Spur) Rouleaux RBC Agglutinates Schistocytes Sezary Cell Sodium Potassium Chloride Carbon Dioxide Anion Gap BUN Creatinine Est Cr Clr Drug Dosing eGFR BUN/Creatinine Ratio Glucose POC Glucose 147 H Calcium Magnesium Total Bilirubin AST ALT Alkaline Phosphatase B-Natriuretic Peptide Total Protein Albumin Globulin Albumin/Globulin Ratio Procalcitonin Blood Parasites ID PG Care Time/CCT Total # of Minutes Spent Total Time Spent with Patient: Total time spent is greater than 50% in coordination of care (as documented) at patient's floor/unit and/or counseling patient: Coding Level of Care Code 80039 SUB INP/OBS CARE MIN Diagnoses Nonrheumatic aortic valve stenosis I35.0 Cardiac valve disease etiology: nonrheumatic CVA (cerebral vascular accident) I63.9 Deep vein thrombosis I82.409 Myocardial Infarction I21.9 Anemia D64.9 Anxiety and depression F41.9; F32.A Osteoporosis with fracture M80.80XA Obstructive sleep apnea G47.33 Systolic murmur R01.1 GERD (gastroesophageal reflux disease) K21.9 BPH (benign prostatic hyperplasia) N40.0 Coronary artery disease involving [place] heart without angina pectoris, unspecified vessel or lesion type I25.10 Coronary Disease-Associated Artery/Lesion type: unspecified vessel or lesion type [place] vs. transplanted heart: [place] heart Associated angina: without angina Dyslipidemia E78.5 (1) Aortic stenosis Cardiac valve disease etiology: nonrheumatic Qualified Code(s): I35.0 - Nonrheumatic aortic (valve) stenosis (12) CAD (coronary artery disease) Coronary Disease-Associated Artery/Lesion type: unspecified vessel or lesion type [place] vs. transplanted heart: [place] heart Associated angina: without angina Qualified Code(s): I25.10 - Atherosclerotic heart disease of [place] coronary artery without angina pectoris
[2025-06-02] MEDS: SIMETHICONE 80 MG CHEW PO PRN (20:10)
--- NOTE | 2025-06-03 08:51 | Ultrasound Report ---
RIGHT LOWER EXTREMITY VENOUS DOPPLER CLINICAL HISTORY: Right lower extremity tenderness. History of DVT. COMPARISON STUDY: Bilateral lower extremity venous Doppler ultrasound June 10, 2019. TECHNIQUE: Sonography of the deep venous system of the right lower extremity was performed. Compress ion and augmentation were evaluated. FINDINGS: The right common femoral and superficial femoral veins are patent. There is stranding with in the right popliteal vein consistent with chronic thrombus. The amount of thrombus is decreased whe n compared to ultrasound of June 10, 2019. Calf vessels were partially obscured but appear patent . IMPRESSION: 1. No evidence for acute deep venous thrombus within the right lower extremity. 2. Stranding within the right popliteal vein consistent with chronic thrombus, decreased in amount si nce prior ultrasound. ACT 112: Negative or not required by law. Electronically signed by: Jared Lange M.D. 06/03/2025 8:50 AM
--- NOTE | 2025-06-03 12:05 | Progress Note ---
Date of Service June 03, 2025 Assessment & Plan (1) Aortic stenosis: Cardiac valve disease etiology: nonrheumatic Qualified Code(s): I35.0 - Nonrheumatic aortic (valve) stenosis (2) CVA (cerebral vascular accident): (3) Deep vein thrombosis: (4) Myocardial Infarction: (5) Anemia: (6) Anxiety and depression: (7) Osteoporosis with fracture: (8) Obstructive sleep apnea: (9) Systolic murmur: (10) GERD (gastroesophageal reflux disease): (11) BPH (benign prostatic hyperplasia): (12) CAD (coronary artery disease): Coronary Disease-Associated Artery/Lesion type: unspecified vessel or lesion type [place] vs. transplanted heart: [place] heart Associated angina: without angina Qualified Code(s): I25.10 - Atherosclerotic heart disease of [place] coronary artery without angina pectoris (13) Dyslipidemia: Plan This is a 74 year old male with a PMH of CAD w hx of stenting, moderate/severe aortic stenosis, DM2, HTN, HLD, BPH, GERD, sarcoidosis - coming in with shortness of breath for the past few weeks. He has noticed swelling in his face and lower extremities; also has had elevated blood pressures with SBP >170 consistently for two weeks (per patient). Was seen by cardiology and an echo was done which showed moderate to severe aortic stenosis; so he was told come to the ER for further eval. Has since been diuresed with IV Lasix with good urinary output. Plan for cardiac cath on 06/03 #Volume overload #HFpEF #Moderate to severe aortic stenosis -Recent heart echocardiogram shows progression of the recent AAS, he has followed with cardiology, underlying-coronary disease no clear ischemic cardiomyopathy -Admit telemetry, diuresis initiated in the emergency department - Will give an additional 40 mg IV Lasix dose this morning but continue with 20 mg IV daily for gentle diuresis, goal of 1.5-2 L for output for 24 hours. Expect 1-2 more days of diuresis to be necessary -Continue with Lasix 20 mg IV twice daily, if this is all indeed related to his aortic stenosis given his pattern he is likely to be quite preload dependent, monitor closely for hypotension, orthostatic vital changes - Consult cardiology, timing of echocardiogram and recheck per recommendation -Daily renal function monitoring - plan for cardiac cath on 06/03 #CAD - No chest pain, remote history of stenting, continue aspirin #Type 2 diabetes - Continue metformin, sliding scale, at goal #HTN - Continue metoprolol and lisinopril #Peripheral neuropathy #Neurogenic claudication - Continue gabapentin, tramadol as needed #Hyperlipidemia -Continue statin #RONNIE - Mild per previous diagnosis, he has been unable to tolerate CPAP in the past - Uses zolpidem chronically, will continue at bedtime #Depression/anxiety -Continue escitalopram #BPH - Tolerating Lasix well so far, continue to tamsulosin #Sarcoidosis - Previously on chronic steroids none per several years, no indication for repeat workup - Uncertain significance in terms to current presentation, no known cardiac manifestations, noted grade 2 diastolic dysfunction, CT scan 06/19 showed no significant extensive pulmonary pathology #Chronic low back pain - Tramadol, hold Celebrex #FEN - Cardiac diet, no indication for fluid restriction at this time #CODE STATUS -Full code per his wishes, discussed with the patient and at the bedside at the time of admission Admission and Anticipated Discharge Date Admission Date: June 01, 2025 Results & Data Vital Signs (Past 12 Hours) Vital Signs Temp Pulse Pulse Resp BP Pulse Ox Pulse Ox 06/03/25 11:44 75 18 127/68 96 06/03/25 11:30 36.8 C 72 18 97/67 L 96 06/03/25 08:28 37.1 C 78 18 123/71 91 06/03/25 07:47 73 06/03/25 03:45 36.6 C 75 14 114/60 96 06/03/25 00:00 94 O2 Del Method O2 Del Method 06/03/25 11:44 Room Air 06/03/25 11:30 Room Air 06/03/25 08:28 Room Air 06/03/25 07:47 06/03/25 03:45 Room Air 06/03/25 00:00 Room Air PG Care Time/CCT Total # of Minutes Spent Total Time Spent with Patient: Total time spent is greater than 50% in coordination of care (as documented) at patient's floor/unit and/or counseling patient: Coding Level of Care Code 68018 SUB INP/OBS CARE 235MIN Diagnoses Nonrheumatic aortic valve stenosis I35.0 Cardiac valve disease etiology: nonrheumatic CVA (cerebral vascular accident) I63.9 Deep vein thrombosis I82.409 Myocardial Infarction I21.9 Anemia D64.9 Anxiety and depression F41.9; F32.A Osteoporosis with fracture M80.80XA Obstructive sleep apnea G47.33 Systolic murmur R01.1 GERD (gastroesophageal reflux disease) K21.9 BPH (benign prostatic hyperplasia) N40.0 Coronary artery disease involving [place] heart without angina pectoris, unspecified vessel or lesion type I25.10 Coronary Disease-Associated Artery/Lesion type: unspecified vessel or lesion type [place] vs. transplanted heart: [place] heart Associated angina: without angina Dyslipidemia E78.5
--- NOTE | 2025-06-03 14:22 | Pre Anesthesia Assessment ---
Date of Service June 03, 2025 Pre Sedation Assessment Vital Signs Temp Pulse Pulse Resp BP Pulse Ox Pulse Ox 06/03/25 11:44 75 18 127/68 96 06/03/25 11:30 98.2 F 72 18 97/67 L 96 06/03/25 10:00 06/03/25 08:28 98.8 F 78 18 123/71 91 06/03/25 07:47 73 06/03/25 03:45 97.9 F 75 14 114/60 96 06/03/25 00:00 94 06/02/25 22:52 98.4 F 78 14 116/74 95 06/02/25 21:46 74 06/02/25 20:15 06/02/25 19:57 98.4 F 74 12 125/72 93 06/02/25 15:28 98.1 F 74 18 149/85 H 95 06/02/25 15:00 78 O2 Del Method O2 Del Method 06/03/25 11:44 Room Air 06/03/25 11:30 Room Air 06/03/25 10:00 Room Air 06/03/25 08:28 Room Air 06/03/25 07:47 06/03/25 03:45 Room Air 06/03/25 00:00 Room Air 06/02/25 22:52 Room Air 06/02/25 21:46 06/02/25 20:15 Room Air 06/02/25 19:57 Room Air 06/02/25 15:28 Room Air 06/02/25 15:00 Cardiovascular + regular rate Respiratory + respiratory effort normal Pre-Sedation Airway Assessment Smoking Status: Never smoker Hx Sleep Apnea: No Hx Difficult Intubation: No Short, Thick Neck: No Thyromental Distance: < 3.5 Finger Breadths Oral Cavity: + WNL Mallampati Class: II ASA: ASA2E NPO Status Date of Last Intake of Fluids: 06/02/25 Time of Last Intake of Fluids: 17:00 Date of Last Intake of Solid Food: 06/02/25 Time of Last Intake of Solid Foods: 17:00 Procedure Planning Contraindications for Sedation: none Current Medications Reviewed: Yes Notes The planned sedation has been discussed with the patient. Informed Consent was obtained. I have identified the patient, determined the appropriateness of sedation and have assessed the patient immediately prior to the procedure. All medicine(s) and interventions are by my order.
[2025-06-03 16:02] LABS: iSTAT Art Bld Gas Base Excess 0.0 mmol/L (-9-1.8)
[2025-06-03] MEDS: HEPARIN (PORCINE) 1000 UNIT/ML 10 ML (CATH LAB USE ONLY) ONE ×2 (16:16→16:17)
[2025-06-03] MEDS: niCARdipine 2,000 MCG/20 ML SYR ONE (16:16)
[2025-06-03] MEDS: MIDAZOLAM HCL 1 MG/ML 2ML VIAL ONE ×2 (16:16→16:17)
[2025-06-03] MEDS: LIDOCAINE 1% LOCAL 20 ML VIAL ONE (16:17)
[2025-06-03] MEDS: ATROPINE SULFATE 0.1 MG/ML 10ML SYR IV ONE (16:17)
[2025-06-03] MEDS: NITROGLYCERIN/D5W 100MCG/ML 20ML SYR ONE ×2 (16:17)
[2025-06-03] MEDS: OPTIRAY 350 ONE (16:18)
[2025-06-03 16:32] LABS: iSTAT Art Bld Gas Base Excess 3.0 mmol/L (-9-1.8)
[2025-06-03] MEDS: CLOPIDOGREL BISULFATE 300 MG TAB ONE (16:40)
--- NOTE | 2025-06-03 16:50 | Post Anesthesia Assessment ---
Date of Service June 03, 2025 Post Sedation Assessment Vital Signs Temp Pulse Pulse Resp BP Pulse Ox Pulse Ox 06/03/25 16:49 98.2 F 67 20 130/71 96 06/03/25 16:48 96 06/03/25 11:44 75 18 127/68 96 06/03/25 11:30 98.2 F 72 18 97/67 L 96 06/03/25 10:00 06/03/25 08:28 98.8 F 78 18 123/71 91 06/03/25 07:47 73 06/03/25 03:45 97.9 F 75 14 114/60 96 06/03/25 00:00 94 06/02/25 22:52 98.4 F 78 14 116/74 95 06/02/25 21:46 74 06/02/25 20:15 06/02/25 19:57 98.4 F 74 12 125/72 93 O2 Del Method O2 Del Method 06/03/25 16:49 Room Air 06/03/25 16:48 Room Air 06/03/25 11:44 Room Air 06/03/25 11:30 Room Air 06/03/25 10:00 Room Air 06/03/25 08:28 Room Air 06/03/25 07:47 06/03/25 03:45 Room Air 06/03/25 00:00 Room Air 06/02/25 22:52 Room Air 06/02/25 21:46 06/02/25 20:15 Room Air 06/02/25 19:57 Room Air Recovery Score Activity: Moves 4 extremities Respiration: Deep Breath/Cough Circulation: +/-20% PreAnes Value Consciousness: Fully Awake Oxygen Saturation: O2 needed for >90% Discharge Sedation Level of Care: Fast Track Phase II
--- NOTE | 2025-06-03 17:13 | Cardiac Catheterization ---
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 Cardiac Status Clinical evaluation leading to the procedure CAD Presenation: Stable angina Diagnostic Physicians Name: Issac Massey MD Closure Device Recommendations: Medical Therapy and/or Counseling Cardiac Cath Procedure Full Procedure Date June 03, 2025 Pre-Procedure Diagnosis Pre-Procedure Diagnosis: Angina and Valvular Disease AUC Score AUC Score: 7 Post-Procedure Diagnosis Post-Procedure Diagnosis: Severe CAD, Successful PCI and Normal Intracardiac Pressures Procedure(s) Performed Procedure(s) Performed: Coronary Angiography, Left Heart Cath, Right Heart Cath, Drug Eluting Stent, Ultrasound Guided Vascular Access, IVUS and Fractional Flow [place] Meter Engineer Issac Massey MD Dean Of Women(s) Usha Estimated Blood Loss Estimated Blood Loss: 40 Medication(s) Medication(s): Clopidogrel, Fentanyl, Heparin, Lidocaine 1%, Nicardipine, Nitroglycerin and Versed Summary of Findings Indication: New exertional dyspnea, moderate to severe aortic stenosis. History of CAD post multiple prior stents Access: 6 Fr slender right radial artery Catheters: 6 Fr Stephen Castelan, JL 3.5, [place], EBU 3.5 guide Findings: LM -normal caliber, no significant disease LAD -medium caliber, long proximal to mid stent chain with hazy 60% mid segment stenosis at bend, 60-70% latemid stenosis at distal end of prior stent remainder of LAD without significant disease and wraps around apex. Jailed D1 with 70% ostial stenosis. Circumflex -4050% ostial/proximal disease. Medium OM 2 without significant disease. Small OM3, PLB without significant disease. RCA -dominant, medium caliber, 30-40% ostial stenosis (no waveform dampening, normal efflux), 30% mid segment stenosis. Distal vessel, RPDA without significant disease. RA 3 RV 32/3 PA 33/10 (19) PAWP 6 LVEDP 9 PaSat 49% AoSat 91% Verito CO/CI 4.1/2/1 Thermo CO/CI 3.2/1.6 Calculated mean AV gradient 16.6 mmHg. Calculated aortic valve area 0.86 cm -- PCI -- Antithrombotic therapy: Heparin, clopidogrel Procedure: Left main cannulated with EBU 3.5 guide Pre-procedure flow KARLEE 3 Davis Omniwire placed into mid LAD IFR 0.74 (0.84 on pullback across end of stent stenosis, 0.94 after pullback across mid in-stent stenosis). IVUS catheter placed to mid LAD, unable to pass mid in-stent restenosis. Pullback revealed patent proximal stent. Proximal LAD/left main without significant disease. FFR wire removed and BMW wire replaced and navigated into distal LAD Latemid LAD lesion predilated with 2.5 compliant balloon Mid LAD in-stent lesion predilated with 2.5 balloon Dilated latemid lesion stented with 2.75 x 18 mm Letha stent overlapping distal aspect of prior stent change New stent post-dilated with 3.5 noncompliant balloon Mid LAD in-stent restenosis dilated with 2.5 NC to hemispheres IC vasodilators administered for spasm Post procedure KARLEE 3 flow, stents well expanded with minimal residual stenosis and no apparent cardiac complications. Arterial Closure: TR band Summary: 1. Multivessel coronary artery disease - 60% mid LAD in-stent restenosis, 60-70% latemid stenosis just distal to prior stents (IFR across lesions 0.74). 70% ostial D2 40-50% ostial/proximal circumflex 30-40% ostial RCA 2. Normal left and right sided filling pressures. 3. Normal pulmonary artery pressures 4. Borderline cardiac output (Thermo 3.2, Verito 4.1) 5. Moderate to severe aortic stenosis (MG 17, EDA 0.86-1.0 cm). 6. Successful PCI of latemid LAD with new MARYBEL (2.75 x 18 mm Letha; postdilated with 3.5 NC) overlapping distal aspect of prior stent chain. 7. Successful angioplasty of mid LAD in-stent restenosis (3.5 NC). 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 Likely referral to tertiary center for further AVR evaluation if exertional dyspnea does not improve. 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 Any exceptions are noted below. [employer] [facility] Card Cath Procedure Codes Cardiac Catheterization Procedure 1: Cardiovascular Cath Procedures: 27324 Coronaries & LHC (+/-LV) & RHC Procedure 2: Cardiovascular Cath Procedures: 11344 (Doppler) Pressure Wire Therapeutic Services & Ancillary Procedure 1: Cardiovascular Tx and Anc Procedures: 98428 IV Ultrasound (Coronary or Graft) Procedure 2: Cardiovascular Tx and Anc Procedures: 86046 Ultrasonic Guidance Vascular Access Moderate Sedation Procedure 1: Sedation/Anesthesia: 13853 Mod Sedation by the same physician;Init15 Min Child Age 5 & Up Procedure 2: Sedation/Anesthesia: 50262 Mod Sedation by the same physician; Ea [id number] Minutes Stenting Procedure 1: Cardiovascular Stent Procedures: 65638 Perc transcatheter placement of intracoronary stent(s), with ang PG Care Time/CCT Total # of Minutes Spent Total Time Spent with Patient: Total time spent is greater than 50% in coordination of care (as documented) at patient's floor/unit and/or counseling patient:
--- NOTE | 2025-06-03 22:59 | Cardiology Progress Note ---
Date of Service June 03, 2025 Assessment & Plan (1) Aortic stenosis: Plan: 2. CAD Remote [place] 2004, reported 5 total stents. LAD/circumflex stents patent 2017. Jailed diagonal severe ostial stenosis PCI with MARYBEL overlapping distal aspect of mid LAD stent, POBA to mid stent ISR 06/2025 3. Hypertensionat goal on ADILENE, BB 4. DyslipidemiaLDL 50 11/2023, high intensity statin 5. Iron deficiency anemiafatigue/weakness with hemoglobin down to 8 07/2021 6. Sarcoidosispreviously on chronic steroids 7. RONNIE 8. Diffuse osteoarthritis Doing well post PCI earlier today. Recurrent severe LAD disease post POBA to mid LAD stents and additional MARYBEL to distal aspect of prior stents. Cardiac cath revealed no signs of heart failure, borderline reduced cardiac output and moderate to severe . Plan to monitor on telemetry overnight. No need for additional diuretics Continue DAPT with aspirin, clopidogrel No change to current lisinopril, metoprolol Continue current statin Can resume metformin in 48 hours Likely discharge in a.m. Will arrange follow-up with me in 2 weeks. If dyspnea exertion improved post PCI can hold off on TAVR eval. If persistent symptoms will refer to tertiary center valve clinic. Admission and Anticipated Discharge Date Admission Date: June 01, 2025 Subjective Seen today post PCI. He is feeling well. No chest pain. Denies significant shortness of breath. No other new complaints. Telemetry reviewedmanage no events Review of Systems Review of Systems: All systems reviewed & are unremarkable except as noted in HPI & below Physical Exam Physical Exam: General: Comfortable HEENT: Sclerae anicteric Lungs: Clear to auscultation bilaterally Cardiac: Regular rate and rhythm, 3 of 6 mid peaking systolic ejection murmur. Vascular: Right radial artery access site with no ecchymosis, hematoma. Distal pulse and sensation intact. Abdomen: Soft, nontender Extremities: Well perfused, no peripheral edema Neuro: Nonfocal Psych: Alert orient x3, normal affect and mood Results & Data Vital Signs (Past 12 Hours) Vital Signs Temp Pulse Pulse Resp BP Pulse Ox Pulse Ox 06/03/25 18:51 98.1 F 66 20 151/69 H 93 06/03/25 18:19 98.2 F 70 20 109/65 94 06/03/25 17:48 66 06/03/25 17:44 06/03/25 17:43 98.1 F 67 20 111/73 93 06/03/25 17:25 98.1 F 72 20 107/64 96 06/03/25 17:10 98.2 F 64 20 125/70 95 06/03/25 16:50 98.2 F 67 20 130/71 96 06/03/25 16:49 98.2 F 67 20 130/71 96 06/03/25 16:48 96 06/03/25 11:44 75 18 127/68 96 06/03/25 11:30 98.2 F 72 18 97/67 L 96 O2 Del Method O2 Del Method 06/03/25 18:51 Room Air 06/03/25 18:19 Room Air 06/03/25 17:48 06/03/25 17:44 Room Air 06/03/25 17:43 Room Air 06/03/25 17:25 Room Air 06/03/25 17:10 Room Air 06/03/25 16:50 Room Air 06/03/25 16:49 Room Air 06/03/25 16:48 Room Air 06/03/25 11:44 Room Air 06/03/25 11:30 Room Air PG Care Time/CCT Total # of Minutes Spent Total Time Spent with Patient: Total time spent is greater than 50% in coordination of care (as documented) at patient's floor/unit and/or counseling patient: Coding Level of Care Code 80144 SUB INP/OBS CARE 2/35MIN Diagnoses Aortic stenosis I35.0 Cardiac valve disease etiology: etiology unspecified (1) Aortic stenosis Cardiac valve disease etiology: etiology unspecified Qualified Code(s): I35.0 - Nonrheumatic aortic (valve) stenosis
[2025-06-04 06:08] LABS: Hematocrit (blood only) 35.8 % (42.0-52.0); Hemoglobin 10.9 g/dl (14.0-18.0); Immature Granulocytes # (auto) 0.01 K/uL (0.01-0.20); Immature Granulocytes % (auto) 0.2 %; Mean Corpuscular Hemoglobin 23.2 pg (25.0-34.0); Mean Corpuscular Volume 76.2 fL (80.0-100.0); Platelet Count 212 K/uL (130-400); RDW Standard Deviation 45.7 fL (36.4-46.3); Red Blood Count 4.70 M/uL (4.70-6.10); White Blood Count 5.45 K/ul (4.8-10.8)
[2025-06-04 06:28] LABS: Anion Gap 7.0 (3-11); Blood Urea Nitrogen 29.0 mg/dl (6-23); Calcium 9.2 mg/dl (8.6-10.3); Carbon Dioxide 28.0 mmol/L (21-32); Chloride 104.0 mmol/L (98-107); Creatinine Clr Calc Pharmacy 72.2 ml/min; Glucose 102.0 mg/dl (70-99(Fasting)); Potassium 4.4 mmol/L (3.5-5.1); Sodium 139.0 mmol/L (136-145)
[2025-06-04 07:21] VITALS: TEMP 98.2
[2025-06-04 10:56] VITALS: PULSE 77; RESP 19; O2SAT 94
--- NOTE | 2025-06-04 13:24 | Discharge Summary ---
Discharge Summary Date of Service June 04, 2025 Principal Dx & Hospital Course #1 = Principal Diagnosis (1) Aortic stenosis: (2) CVA (cerebral vascular accident): (3) Deep vein thrombosis: (4) Myocardial Infarction: (5) Anemia: (6) Anxiety and depression: (7) Osteoporosis with fracture: (8) Obstructive sleep apnea: (9) Systolic murmur: (10) GERD (gastroesophageal reflux disease): (11) BPH (benign prostatic hyperplasia): (12) CAD (coronary artery disease): (13) Dyslipidemia: Plan This is a 74 year old male with a PMH of CAD w hx of stenting, moderate/severe aortic stenosis, DM2, HTN, HLD, BPH, GERD, sarcoidosis - coming in with shortness of breath for the past few weeks. He has noticed swelling in his face and lower extremities; also has had elevated blood pressures with SBP >170 consistently for two weeks (per patient). Was seen by cardiology and an echo was done which showed moderate to severe aortic stenosis; so he was told come to the ER for further eval. Has since been diuresed with IV Lasix with good urinary output. Plan made for cardiac cath on 06/03/25. Patient had stents placed previously and the cath showed these stents with patency; an additional MARYBEL placed at the mid LAD stent. No additional diuresis needed per cardiology. Plavix script was given. #Acute on Chronic HFpEF #Moderate to severe aortic stenosis -Recent heart echocardiogram shows progression of the recent AAS, he has followed with cardiology, underlying-coronary disease no clear ischemic cardiomyopathy -Admit telemetry, diuresis initiated in the emergency department - Will give an additional 40 mg IV Lasix dose this morning but continue with 20 mg IV daily for gentle diuresis, goal of 1.5-2 L for output for 24 hours. Expect 1-2 more days of diuresis to be necessary -Continue with Lasix 20 mg IV twice daily, if this is all indeed related to his aortic stenosis given his pattern he is likely to be quite preload dependent, monitor closely for hypotension, orthostatic vital changes - Consult cardiology, timing of echocardiogram and recheck per recommendation -Daily renal function monitoring - plan for cardiac cath on 06/03 #Type 2 diabetes - Continue metformin, sliding scale, at goal #HTN - Continue metoprolol and lisinopril #Peripheral neuropathy #Neurogenic claudication - Continue gabapentin, tramadol as needed #Hyperlipidemia -Continue statin #RONNIE - Mild per previous diagnosis, he has been unable to tolerate CPAP in the past - Uses zolpidem chronically, will continue at bedtime #Depression/anxiety -Continue escitalopram #BPH - Tolerating Lasix well so far, continue to tamsulosin #Sarcoidosis - Previously on chronic steroids none per several years, no indication for repeat workup - Uncertain significance in terms to current presentation, no known cardiac manifestations, noted grade 2 diastolic dysfunction, CT scan 06/19 showed no significant extensive pulmonary pathology #Chronic low back pain - Tramadol, hold Celebrex #FEN - Cardiac diet, no indication for fluid restriction at this time #CODE STATUS -Full code per his wishes, discussed with the patient and at the bedside at the time of admission Admission HPI Per Admitting Provider 74 year-old man with coronary artery disease post remote stenting, moderate/severe aortic stenosis, DM2, osteoporosis, hypertension, dyslipidemia. RONNIE, neurogenic claudication, chronic low back pain BPH, GERD, sarcoidosis presents to the emergency department with significantly elevated blood pressures, edema in his shoulders and face, shortness of breath that has been progressive over the last several weeks. Reportedly seen in the cardiology clinic with shortness of breath. Echocardiogram was done which he had not received the results from yet but demonstrates moderate to severe aortic stenosis. This has been under surveillance with cardiology for quite some time. Not on a diuretic at the current time. Has noted the increase in the edema and progressive dyspnea on exertion over the last probably 2 to 4 weeks. After the blood pressures were quite severely elevated he developed some mild chest pain and pressure last night persistent through the day this morning so he came to the emergency department for evaluation. Initial evaluation consistent with volume overload state, lower extremity edema, edema on chest x-ray and the nonpitting edema in the upper portion of body. Secondary to this Lasix was initiated. He was referred for admission for further evaluation, close monitoring, ongoing daily diuresis and cardiology consultation. Discharge Exam VITALS: Reviewed. WEIGHT/BMI reviewed. GEN: Healthy appearing, well-developed, NAD. PSYCH: Good Judgment. AOx3. Normal memory, mood, and affect. HEENT -Head: NC/AT; -Eyes: PERRL, EOMI. No discharge or redness; -Ears: External ears are normal. Normal TMs. -Nose: Normal nares. -Mouth and throat: MMM. Normal gums, mucosa, palate,. Good dentition. NECK: Supple, with no masses. CV: RRR, no m/r/g. LUNGS: CTAB, no w/r/c. ABD: Soft, NT/ND, NBS, no masses or organomegaly. : N/A SKIN: Warm, well perfused. No skin rashes or abnormal lesions. MSK: No deformities, Normal gait. EXT: No clubbing, cyanosis, or edema. NEURO: Ambulating with no limitations. Normal muscle strength and tone. No focal deficits. Discharge Plan Discharge Items Patient Disposition: Home - Self-Care Reason For Visit: EDEMA, SOB Discharge Diagnosis: CAD s/p MARYBEL to mid-LAD Condition on Discharge: Fair Activity: Resume your previous activity Non-emergency contact: Leasing Professional Call non-emergency contact if: you have any medication questions, your symptoms worsen, your pain is not controlled, your pain is worsening, your pain is unusual for you and your pain is concerning for you Follow-up/Referrals: Jen Valera CRNP [Primary Care Provider] - 06/11/25 10:30 am (Follow up scheduled on 06/11/25 at 10:30 with Jen Valera) Diet: Heart Healthy Addtl Attending Provider Instructions: Follow-up with cardiology as an outpatient Pending Studies at Discharge: No Stand-Alone Forms: My [facility] Booktrope, Smoking Cessation Medications and DC Order Prescriptions: New clopidogrel 75 mg tablet 75 mg PO DAILY Qty: 60 2RF Continued tamsulosin 0.4 mg capsule 0.4 mg PO QPM Qty: 90 3RF metoprolol succinate 25 mg tablet extended release 24 hr 25 mg PO QAM Qty: 90 3RF Hold Instructions: Home Medication placed on hold at Doctor's office escitalopram oxalate [Lexapro] 20 mg tablet 20 mg PO QPM Qty: 90 3RF lisinopril 10 mg tablet 10 mg PO BID Qty: 180 3RF atorvastatin 40 mg tablet 40 mg PO HS Qty: 90 3RF Rx Instructions: TAKE 1 TABLET AT BEDTIME. gabapentin 300 mg capsule 300 mg PO DAILY PRN (Reason: low back pain) Qty: 90 2RF calcium carbonate-vitamin D3 600 mg(1,500mg) -200 unit tablet 1 tab PO QAM nitroglycerin 0.4 mg tablet, sublingual 0.4 mg SL UD PRN (Reason: Chest Pain) metformin 500 mg tablet extended release 24 hr 500 mg PO BID vitamin B complex Tablet 1 tab PO DAILY cholecalciferol (vitamin D3) [Vitamin D3] 2,000 unit Tablet 2,000 unit PO QAM aspirin 81 mg Tablet,Delayed Release (Dr/Ec) 81 mg PO QAM coQ10 (ubiquinol) 200 mg Capsule 200 mg PO QAM tramadol 50 mg tablet 50 - 100 mg PO HS PRN (Reason: pain) Patient Comments: Patient states he takes for neck and arm pain Rx Instructions: 1 or 2 at bedtime orally PRN; pantoprazole 40 mg tablet,delayed release (DR/EC) 40 mg PO QAM Rx Instructions: TAKE 1 TABLET BY MOUTH EVERY MORNING zolpidem 5 mg tablet 5 mg PO DAILY Rx Instructions: 5 mg orally daily; No Action celecoxib 100 mg capsule 100 mg PO BID Discharge Orders: Discharge Order (Routine); Ordered 06/04/25 Ordered By: Lucia Ramirez/Other Patient Handouts: CAD Admission Data Admit Date/Time: 06/01/25 11:09 Attending Provider: Lucia Montoya Admit Provider: Trent Lopez Primary Care Provider: Jen Valera Other Providers: Trent Lopez; Nazario Quintanilla Hospital Stay Data Consultations 06/01/25 10:08 ED Decision to Admit Stat 06/01/25 16:04 Consult Cardiology Routine Procedures Performed Operation Date: 06/03/25 11:15 Actual Procedures p Cineradiography w/Routine Exam - Issac Massey MD p Cath, Right and Left Heart - Issac Massey MD s IVUS Coronary Single Vessel - Issac Massey MD p Drug Eluting Stent SGl Vessel - Issac Massey MD Diagnostic Imagining Performed 06/03/25 07:43 US venous duplex leg [US venous doppler LE RT] Urgent 06/03/25 08:27 CL IVUS Coronary Single Vessel Routine 06/03/25 14:29 CL Cath Imgs for PACS use only Routine Pending Results Patient Have Any Pending Studies at Discharge: No Discharge Instructions Given to Patient (Per Discharging Provider) Follow-up with cardiology as an outpatient Home Health Attestation I certify that this patient is under my care and that I, or a physicians head start assistant teacher working with me, had a face to-face encounter that meets the home health [id number] encounter requirements with this patient. The encounter with the patient was in whole, or in part, for the following medical condition, which is the primary reason for home health care (list medical condition): I certify that, based on my findings, the following services are medically necessary home health services: My clinical findings support the need for the above services because: Further, I certify that my clinical findings support that this patient is homebound (i.e. absences from home require considerable and taxing effort and are for medical reasons or roman catholic services or infrequently or of short duration when for other reasons) because: Certification for Home Health Services: Based on the above findings, I certify that this patient is confined to the home and needs intermittent fpc care, physical therapy and/or speech therapy or continues to need occupational therapy. The patient is under my care, and I have initiated the establishment of the plan of care. This patient will be followed by a physician who will periodically review the plan of care. Total Time Total Time Spent Total Time Spent (In Minutes): 40 minutes Coding Level of Care Code 11942 INP/OBS DISCH >30 MIN Diagnoses Nonrheumatic aortic valve stenosis I35.0 Cardiac valve disease etiology: nonrheumatic CVA (cerebral vascular accident) I63.9 Deep vein thrombosis I82.409 Myocardial Infarction I21.9 Anemia D64.9 Anxiety and depression F41.9; F32.A Osteoporosis with fracture M80.80XA Obstructive sleep apnea G47.33 Systolic murmur R01.1 GERD (gastroesophageal reflux disease) K21.9 BPH (benign prostatic hyperplasia) N40.0 Coronary artery disease involving [place] heart without angina pectoris, unspecified vessel or lesion type I25.10 Associated angina: without angina Coronary Disease-Associated Artery/Lesion type: unspecified vessel or lesion type [place] vs. transplanted heart: [place] heart Dyslipidemia E78.5 Time Spent (min) 40
[2025-06-04 13:37] VITALS: BP 174/88
--- NOTE | 2025-06-04 13:48 | Cardiology Progress Note ---
Date of Service June 04, 2025 Assessment & Plan (1) Aortic stenosis: Plan: 2. CAD Remote [place] 2004, reported 5 total stents. LAD/circumflex stents patent 2017. Jailed diagonal severe ostial stenosis PCI with MARYBEL overlapping distal aspect of mid LAD stent, POBA to mid stent ISR 06/2025 3. Hypertensionat goal on ADILENE, BB 4. DyslipidemiaLDL 50 11/2023, high intensity statin 5. Iron deficiency anemiafatigue/weakness with hemoglobin down to 8 07/2021 6. Sarcoidosispreviously on chronic steroids 7. RONNIE 8. Diffuse osteoarthritis Doing well post PCI yesterday. No chest pain. Electrically stable on telemetry. No access site complications. From a cardiac standpoint okay with discharge today. Home on: DAPT with aspirin, clopidogrel Continue lisinopril, metoprolol Continue current statin Can resume metformin tomorrow. Will arrange follow-up with me in 2 weeks. If dyspnea on exertion improved post PCI can hold off on TAVR eval. If persistent symptoms will refer to tertiary center valve clinic. Admission and Anticipated Discharge Date Admission Date: June 01, 2025 Subjective Today reports feeling well. No chest pain. Denies significant shortness of breath. Slept well overnight. No new complaints. Telemetry reviewedno significant events Review of Systems Review of Systems: All systems reviewed & are unremarkable except as noted in HPI & below Physical Exam Physical Exam: General: Comfortable HEENT: Sclerae anicteric Lungs: Clear to auscultation bilaterally Cardiac: Regular rate and rhythm, 3 of 6 mid peaking systolic ejection murmur. Vascular: Right radial artery access site with no ecchymosis, hematoma. Distal pulse and sensation intact. Abdomen: Soft, nontender Extremities: Well perfused, no peripheral edema Neuro: Nonfocal Psych: Alert orient x3, normal affect and mood Results & Data Vital Signs (Past 12 Hours) Vital Signs Temp Pulse Pulse Resp BP BP Pulse Ox 06/04/25 13:36 98.2 F 77 19 106/67 174/88 H 94 06/04/25 10:54 98.2 F 77 19 106/67 94 06/04/25 08:41 75 06/04/25 08:41 06/04/25 07:20 98.2 F 72 18 120/72 93 06/04/25 03:25 97.9 F 65 16 111/70 92 O2 Del Method 06/04/25 13:36 06/04/25 10:54 Room Air 06/04/25 08:41 06/04/25 08:41 Room Air 06/04/25 07:20 Room Air 06/04/25 03:25 Room Air PG Care Time/CCT Total # of Minutes Spent Total Time Spent with Patient: Total time spent is greater than 50% in coordination of care (as documented) at patient's floor/unit and/or counseling patient: Coding Level of Care Code 93875 SUB INP/OBS CARE 235MIN Diagnoses Aortic stenosis I35.0 Cardiac valve disease etiology: etiology unspecified (1) Aortic stenosis Cardiac valve disease etiology: etiology unspecified Qualified Code(s): I35.0 - Nonrheumatic aortic (valve) stenosis
[2025-06-04] MEDS: INFLUENZA VACC TS2025-26(65y+)/PF (IIV3) 0.5mL Syr IM ONE (14:58)
--- NOTE | 2025-06-05 14:47 | Coding Query ---
CONGESTIVE HEART FAILURE To Promote full compliance with coding requirements relating to patient care, physician participation is requested in all cases of electronics engineering technician uncertainty. Please assist us with the following questions. A diagnosis of Congestive Heart Failure is documented in the patient's medical record. To accurately code this diagnosis and to compare patient severity, we ask that you specify the type of heart failure by placing an X within the parenthesis (x). SYSTOLIC HEART FAILURE ( ) Acute ( ) Chronic ( ) Acute on Chronic ( ) Rheumatic ( ) Unknown DIASTOLIC HEART FAILURE ( ) Acute ( ) Chronic ( ) Acute on Chronic ( ) Rheumatic ( ) Unknown COMBINED SYSTOLIC AND DIASTOLIC HEART FAILURE ( ) Acute ( ) Chronic ( ) Acute on Chronic ( ) Rheumatic ( ) Unknown Was the CHF Present On Admission? Please check the appropriate box: ( ) Present on Admission ( ) Not Present On Admission ( ) Clinically undetermined Thank you Radha QUILES
== END 2025-06-04 15:10 | disposition home or self-care (01) | DRG 321 ==
LOC: ED 07:22 → 2N 11:09 → SUATTDRO 11:09 → 2N 16:04 → 4W 06-03 16:50

== ENCOUNTER 2025-06-24 00:28 | Inpatient (IN) ==
--- NOTE | 2025-06-24 00:46 | Emergency Department Note ---
Impression & Plan SBO (small bowel obstruction) Admission ED Provider Note HPI: History obtained from patient. The patient is a 74-year-old gentleman with history of CAD, aortic stenosis, diabetes, who presents to the emergency department with mid abdominal pain as well as nausea and vomiting. Patient states that his symptoms began at about 6 PM. Patient states that he developed some severe nausea and some pain in the mid aspect of his abdomen. Patient stated he did not have any vomiting however just when he arrived here to the ED he had several episodes of large-volume emesis. On arrival here to the ED otherwise the patient is hemodynamically stable and saturating well on room air. ROS: - Per HPI Differential Diagnosis: Small bowel obstruction, viral gastroenteritis, acute cholecystitis, acute appendicitis, diverticulitis flare, GERD, esophagitis, amongst other potential pathologies. *Outpatient medications and allergy history reviewed. PE: General: Alert, mild distress secondary to nausea and vomiting HEENT: Normocephalic, trachea midline Eyes: Extraocular eye movement is intact, no scleral erythema Pulmonary: Clear to auscultation bilaterally, no wheezing Cardio: Regular rate and rhythm GI: Abdomen is soft to palpation, there is generalized tenderness to palpation, mild distention : No suprapubic tenderness MSK: No evidence of trauma or malformation of the extremities, no edema Skin: No evidence of rash Neuro: Alert, no focal deficits Psychiatric: Cooperative INDEPENDENT INTERPRETATIONS: paper sorter and counter: (As interpreted by myself): - An order was placed for continuous cardiac monitoring - Patient was noted to be in sinus rhythm with a rate of 82 EKG: (As interpreted by myself): Rate: 83 Rhythm: Normal sinus rhythm Intervals: Within normal limits ST changes: No ST elevation Time: 0102 Chest x-ray: (As interpreted by myself): Mild pulmonary vascular congestion, hiatal hernia Interventions provided in ED: - IV fluid bolus, IV morphine, IV Zofran, IV Phenergan Medical Decision Making: IV was established and lab work obtained, patient was placed on superintendent. Lab work shows no leukocytosis, hemoglobin is stable at 11.5, platelet count is normal, CMP does not show any evidence of any critical findings, troponin is negative x 1. EKG per my interpretation shows normal sinus rhythm without any acute ischemic changes noted. Lipase is normal, there is no transaminitis, bilirubin is normal. Urinalysis shows trace leukocyte esterase but no evidence of blood or obvious infection. CT imaging of the abdomen pelvis was obtained and is suggestive of a small bowel obstruction with transition point in the right upper quadrant. Unclear per the interpreting radiologist if this is an infectious or inflammatory process or less likely neoplastic process. I discussed all of the above with the patient and with his at the bedside. They are in agreement for admission. NG tube was ordered given SBO on CT imaging with persistent nausea. I discussed patient's presentation with the on- call hospitalist, Dr. Toth, and the patient was placed for admission in stable condition for further management and likely GI and general surgery consultations. Consultants/Discussions held with other healthcare providers: - Hospitalist, Dr. Toth Disposition discussion held by myself with: - Patient and patient's at the bedside Diagnosis: 1. Small bowel obstruction, acute 2. Nausea and vomiting, acute Disposition: Admission Lance Beckett DO Emergency Medicine Past Med/Surg History Problem List (Updated 06/24/25 @ 04:14 by Lance Beckett DO) SBO (small bowel obstruction) (Acute) Anxiety Aortic stenosis (Acute) Acute congestive heart failure (Acute) Diabetes mellitus Degenerative lumbar disc Lumbar stenosis without neurogenic claudication History of osteoporosis Paresthesia of right lower extremity Lumbar radicular pain Lumbar spondylosis Dyspnea on exertion Post-nasal drip Joint pain in both hands Myalgia Arthritis Osteoporosis with fracture (Chronic) steroid induced, on reclast Peripheral neuropathy Obstructive sleep apnea "moderate" RONNIE: no device (non-compliant) Vitamin D deficiency (Chronic) Insomnia (Chronic) Chronic low back pain Prepatellar bursitis, left knee Unsteady gait (Acute) Neurogenic claudication Dyspnea Systolic murmur Iron deficiency anemia Aortic stenosis Now Moderate echo 01/22 Hypertension GERD (gastroesophageal reflux disease) (Chronic) BPH (benign prostatic hyperplasia) CAD (coronary artery disease) stents x5 total (~2002 & 2010) 2017 cardiac cath with 2V occlusive disease with patent stents (recommendations for medical management) Cervical spine degeneration Sarcoidosis stable, no longer on pred Dyslipidemia Medical History History of trigger finger Hx of Clostridium difficile infection Anxiety and depression Anemia CVA (cerebral vascular accident) Pulmonary embolism (~2010) Deep vein thrombosis Myocardial Infarction (~2002) History of tumor Glaucoma Surgical History History of tooth extraction History of repair of rotator cuff S/P tendon repair S/P arthroscopy of left shoulder S/P epidural steroid injection History of esophagogastroduodenoscopy (EGD) History of colonoscopy History of vitrectomy History of heart artery stent History of cardiac cath Status post repair of nerve H/O inguinal hernia repair H/O hand surgery H/O brain surgery Family History Mother Congestive heart failure Cardiac disorder COPD (chronic obstructive pulmonary disease) Hypertension Father Prostate cancer COPD (chronic obstructive pulmonary disease) Son Family history of diabetes mellitus Other No family history of adverse response to anesthesia Denies family history of Ovarian cancer Myocardial infarction Breast cancer Colorectal cancer Social History Smoking Status: Never smoker Second Hand Exposure: No; Do You Dip or Chew Tobacco: No; Hx Alcohol Use: No Hx Substance Use: No Preferred Language: Yemeni Communication Ability: Effective Visual Impairment: No Limitations Hearing Ability: Normal Crime Scene Examiner Required: No Beliefs That Will Affect Care: None marital status: Current Living Situation: Family current occupational status: retired current occupation: [employer] How many Children do You have: 2 Feels Safe at Home: Yes Childhood Exposure to Second-Hand Smoke: No Diet: regular caffeine: Yes Dental Care, Regularly: Yes Physical Activity Frequency: Daily Seatbelt Use: always Sunscreen Use: No Assistive Devices: None Allergies Allergies Allergy/AdvReac Type Severity Reaction Status Date / Time No Known Drug Allergies Allergy Unknown . Verified 06/18/25 15:12 Home Meds Home Medications Medication Instructions Recorded Confirmed calcium 600 mg (as 1 tab PO QAM 12/13/18 06/24/25 carbonate)-vitamin D3 5 mcg (200 unit) tablet nitroglycerin 0.4 mg sublingual 0.4 mg sublingual UD PRN Chest Pain 12/13/18 06/24/25 tablet aspirin 81 mg tablet,delayed 81 mg PO QAM 06/10/19 06/24/25 release coQ10 (ubiquinol) 200 mg capsule 200 mg PO QAM 06/10/19 06/24/25 cholecalciferol (vitamin D3) 50 2,000 unit PO QAM 09/03/19 06/24/25 mcg (2,000 unit) tablet (Vitamin D3) metformin 500 mg tablet,extended 500 mg PO BID 04/15/25 06/24/25 release 24 hr vitamin B complex 1 tab PO DAILY 04/15/25 06/24/25 pantoprazole 40 mg tablet,delayed 40 mg PO QAM 06/01/25 06/24/25 release zolpidem 5 mg tablet 5 mg PO DAILY 06/01/25 06/24/25 gabapentin 300 mg capsule 300 mg PO DAILY PRN low back pain 06/18/25 06/24/25 Previous Rx's Medication Instructions Recorded metoprolol succinate 25 mg 25 mg PO QAM #90 tabs 07/23/24 tablet,extended release 24 hr lisinopril 10 mg tablet 10 mg PO BID #180 tabs 10/15/24 atorvastatin 40 mg tablet 40 mg PO HS #90 tabs 01/03/25 clopidogrel 75 mg tablet 75 mg PO DAILY #60 tabs 06/04/25 buspirone 10 mg tablet 10 mg PO BID #60 tabs 06/11/25 tamsulosin 0.4 mg capsule 0.4 mg PO QPM #90 caps 06/14/25 tramadol 50 mg tablet 50 - 100 mg (1 - 2 x 50 mg) PO HS 06/18/25 PRN pain #60 tabs Results & Data (ED) Vital Signs Vital Signs - 24 hr 06/24/25 00:30 06/24/25 01:06 06/24/25 01:09 Temperature 36.4 C L Temperature Source Temporal Artery Scan Pulse Rate 84 85 Pulse Rate [Apical] 80 Respiratory Rate 18 Respiratory Effort / Characteristics Non-Labored Spontaneous Respiratory Depth Normal Blood Pressure 153/89 H Blood Pressure Mean 110 Blood Pressure Position Sitting Pulse Oximetry 96 94 Oxygen Delivery Method Room Air Room Air Sepsis Recent Fever Within 48 Hours No Sepsis New/Unexplained Change in Mental Status N/A Sepsis Action Taken by Nursing No Action Required 06/24/25 01:09 Temperature Temperature Source Pulse Rate Pulse Rate [Apical] Respiratory Rate Respiratory Effort / Characteristics Respiratory Depth Blood Pressure Blood Pressure Mean Blood Pressure Position Pulse Oximetry Oxygen Delivery Method Room Air Sepsis Recent Fever Within 48 Hours Sepsis New/Unexplained Change in Mental Status Sepsis Action Taken by Nursing Laboratory Data 06/24/25 00:38 06/24/25 00:38 Lab Results 06/24/25 06/24/25 06/24/25 Range/Units 00:38 00:51 04:15 WBC 6.89 (4.8-10.8) K/ul RBC 4.85 (4.70-6.10) M/uL Hgb 11.5 L (14.0-18.0) g/dL Hct 37.4 L (42.0-52.0) % MCV 77.1 L (80.0-100.0) fL MCH 23.7 L (25.0-34.0) pg MCHC 30.7 L (32.0-36.0) g/dL RDW Std Deviation 45.8 (36.4-46.3) fL RDW Coeff of Huma 16.5 H (11.5-14.5) % Plt Count 219 (130-400) K/uL MPV 8.9 L (9.4-12.4) fL Immature Gran % (Auto) 0.3 % Neut % (Auto) 72.9 % Lymph % (Auto) 13.1 % Becker % (Auto) 10.0 % Eos % (Auto) 2.8 % Baso % (Auto) 0.9 % Neut # (Auto) 5.03 (1.40-6.50) K/uL Lymph # (Auto) 0.90 L (1.20-3.40) K/uL Becker # (Auto) 0.69 H (0.11-0.59) K/uL Eos # (Auto) 0.19 (0.00-0.50) K/uL Baso # (Auto) 0.06 (0.00-0.20) K/uL Immature Gran # (Auto) 0.02 (0.01-0.20) K/uL PT 11.3 (9.0-12.0) Seconds INR 1.1 (0.9-1.1) Sodium 140 (136-145) mmol/L Potassium 4.4 (3.5-5.1) mmol/L Chloride 102 (98-107) mmol/L Carbon Dioxide 30 (21-32) mmol/L Anion Gap 8 (3-11) BUN 16 (6-23) mg/dl Creatinine 1.15 (0.6-1.4) mg/dl Est Cr Clr Drug Dosing 60.4 ml/min eGFR 67.20 BUN/Creatinine Ratio 13.9 (10-20) Glucose 126 H (70-99(Fasting)) mg/dl Lactate 1.1 (0.4-2.0) mmol/L Calcium 9.7 (8.6-10.3) mg/dl Total Bilirubin 0.8 (0.2-1.0) mg/dl AST 23 (13-39) U/L ALT 16 (7-52) U/L Alkaline Phosphatase 49 (34-104) U/L Troponin I High Sens 12.0 (0-20) pg/ml Total Protein 7.9 (6.0-8.3) gm/dl Albumin 4.9 (3.4-5.0) gm/dl Globulin 3.0 (2.5-4.0) gm/dl Albumin/Globulin Ratio 1.6 (0.9-2) Lipase 69 (11-82) U/L Urine Color Yellow Urine Appearance Clear (Clear) Urine pH 6.0 (4.5-7.5) Ur Specific [place] 1.015 (1.000-1.030) Urine Protein Negative (Negative) Urine Glucose (UA) Negative (Negative) Urine Ketones Negative (Negative) Urine Blood Negative (Negative) Urine Nitrite Negative (Negative) Urine Bilirubin Negative (Negative) Urine Urobilinogen Negative (Negative) Ur Leukocyte Esterase Trace H (Negative) Urine WBC (Auto) 0-5 (0-5) /hpf Urine RBC (Auto) 0-2 (0-2) /hpf U Hyaline Cast (Auto) 0-2 (0-2) /lpf U Epithel Cells (Auto) 0-2 (0-2) /hpf Urine Bacteria (Auto) None Seen (None Seen) Urine Comment Administered Medications Sodium Chloride (Nss) 1,000 mls @ 999 mls/hr IV .Q1H1M ONE Stop: 06/24/25 04:52 Last Admin: 06/24/25 04:07 Dose: 999 mls/hr Documented By: casi Discontinued Medications Sodium Chloride (Nss) 500 mls @ 999 mls/hr IV .Q31M STA Stop: 06/24/25 01:08 Last Infusion: 06/24/25 01:33 Dose: Infused Documented By: casi Admin: 06/24/25 00:57 Dose: 999 mls/hr Documented By: casi Promethazine HCl (Phenergan) 12.5 mg in 50.5 mls @ 202 mls/hr IV NOW STA Stop: 06/24/25 02:29 Last Infusion: 06/24/25 02:35 Dose: Infused Documented By: casi Admin: 06/24/25 02:21 Dose: 202 mls/hr Documented By: casi Ioversol (Optiray 320 100ml) 100 ml IV ONCE ONE Stop: 06/24/25 02:05 Last Admin: 06/24/25 02:04 Dose: 93 ml Documented By: ANDRE Ondansetron HCl (Ondansetron Inj 2 Mg/Ml 2 Ml Vial) 4 mg IV NOW STA Stop: 06/24/25 00:44 Last Admin: 06/24/25 00:56 Dose: 4 mg Documented By: casi Ondansetron HCl (Ondansetron Inj 2 Mg/Ml 2 Ml Vial) 4 mg IV NOW STA Stop: 06/24/25 01:33 Last Admin: 06/24/25 01:36 Dose: 4 mg Documented By: casi Imaging Data Radiologist's Impression: Abdomen/Pelvis CT 06/24/25 00:43 EXAM: CT abd pelvis IV con only CLINICAL HISTORY: mid abd pain, vomiting TECHNIQUE: CT of the abdomen and pelvis was performed, with the following protocol: axial images, and reconstructed coronal and sagittal images. Intravenous contrast was administered. One of the following dose reduction techniques was utilized for this exam: Automated exposure control, adjustment of the mA and/or kV according to patient size, and use of iterative reconstruction. COMPARISON: 08/03/2022 FINDINGS: Sections of lower thorax show moderate sized hiatus hernia with interval dilatation of the herniated portion of the stomach which is fluid filled. Abdomen: Gastrointestinal tract: New interval development of circumferential mural thickening in the pyloric region of stomach, measuring 12 mm in maximum thickness with resultant dilatation of proximal stomach. Possibility of inflammatory/infective etiology appears likely. However, neoplastic etiology cannot be excluded. New interval development of dilated duodenum and proximal jejunum showing air fluid levels, with maximum caliber of 42 mm and transition point in the right upper quadrant where abrupt change in luminal caliber noted with suggestion of mural thickening in this region. Coronal image 29/100. The findings represent acute proximal small bowel obstruction, secondary to inflammatory stricture likely. Remote possibility of neoplastic etiology cannot be excluded. Mild circumferential mural thickening of few of jejunal bowel loops distal to this transition point also noted with borderline distension, measuring 29 mm in maximum caliber. Likely inflammatory changes. Uncomplicated colonic diverticulosis again noted. Appendix appears unremarkable. Liver: Normal in size, and density. No focal lesions, cysts, or masses were identified. Gallbladder and Biliary System: The gallbladder is partially distended. No radiodense gallstones were identified. Pancreas: Pancreatic head, body, and tail are visualized and appear normal in size and density. Spleen: Normal in size, shape, and density. No splenic lesions or masses were identified. Kidneys and Adrenal Glands: Both kidneys are normal in size. No renal calculi or hydronephrosis. Tiny bilateral parapelvic cysts. Stable Adrenal glands are unremarkable. Pelvis: Urinary Bladder: Partially distended with suggestion of redemonstration of minimal mucosal thickening at the base and neck of urinary bladder. Prostate is mildly enlarged, measuring 34 x 43 x 35 mm. Stable Peritoneal and Retroperitoneal Structures: No free fluid or abnormal fluid collections were identified within the abdomen or pelvis. The abdominal aorta and its branches shows atherosclerotic changes with calcified plaques. Bones and Soft Tissues: Advanced degenerative changes in lumbar spine. Grade I anterolisthesis of L4 over L5. Mild anterior wedging of T12 vertebral body with a large Schmorl's node along its superior endplate. Left inguinal hernia containing peritoneal fat noted. Stable Small umbilical hernia containing omental fat. Stable IMPRESSION: 1. New interval development of circumferential mural thickening in the pyloric region of stomach, measuring 12 mm in maximum thickness with resultant dilatation of proximal stomach. Possibility of inflammatory/infective etiology appears likely. However, neoplastic etiology cannot be excluded. Recommended endoscopic correlation 2. New interval development of dilated duodenum and proximal jejunum showing air fluid levels, with maximum caliber of 42 mm and transition point in the right upper quadrant where abrupt change in luminal caliber noted with suggestion of mural thickening in this region. Coronal image 100. The findings represent acute proximal small bowel obstruction, secondary to inflammatory stricture likely. Remote possibility of neoplastic etiology cannot be excluded. 3. Mild circumferential mural thickening of few of jejunal bowel loops distal to this transition point also noted with borderline distension, measuring 29 mm in maximum caliber. Likely inflammatory changes. 4. Sections of lower thorax show moderate sized hiatus hernia with interval dilatation of the herniated portion of the stomach which is fluid filled. 5. Mild prostatomegaly 6. Partially distended urinary bladder with suggestion of redemonstration of minimal mucosal thickening at the base and neck of urinary bladder. 7. Uncomplicated colonic diverticulosis again noted. 8. Left inguinal hernia containing peritoneal fat noted. Stable 9. Small umbilical hernia containing omental fat. Stable Electronically signed by Pasquale Chu 06-24-2025 03:48 AM Chest X-Ray 06/24/25 00:43 EXAM: XR chest 1V portable CLINICAL HISTORY: Nausea, Vomiting TECHNIQUE: An X-ray image of the chest is obtained in AP projection. COMPARISON: Compared to the previous study, dated 06/01/2025. FINDINGS: Pulmonary Parenchyma: Mild pulmonary vascular congestion. No evidence of consolidation, collapse, or focal opacities. No pulmonary nodules are identified. Atelectatic bands at bilateral middle lung zones. No evidence of pleural effusion or pleural thickening. Heart and Mediastinum: Cardiomegaly. No mediastinal widening or masses. No hilar or mediastinal lymphadenopathy. Retrocardiac air-fluid level suggestive of hiatus hernia. Bony Thorax: Bony thorax appears intact without fractures or deformities. Soft Tissues: Soft tissues overlying the chest wall are unremarkable. ECG leads are seen overlying the chest. IMPRESSION: 1. Cardiomegaly. Mild pulmonary vascular congestion. Stable. 2. Atelectatic bands at bilateral middle lung zones. Stable. 3. Retrocardiac air-fluid level suggestive of hiatus hernia. Stable. 4. No significant interval changes. Electronically signed by Pasquale Chu 06-24-2025 02:33 AM Discharge Plan Visit Data Chief Complaint: Abdominal Pain Stated Complaint: ABD PAIN ED Provider: Lance Beckett Discharge Problem: SBO (small bowel obstruction) Patient Disposition: Admitted As Inpatient Condition: Fair Forms Stand Alone Forms: [facility] Prescriptions Prescriptions: No Action metoprolol succinate 25 mg tablet extended release 24 hr 25 mg PO QAM Qty: 90 3RF Hold Instructions: Home Medication placed on hold at Doctor's office lisinopril 10 mg tablet 10 mg PO BID Qty: 180 3RF atorvastatin 40 mg tablet 40 mg PO HS Qty: 90 3RF Rx Instructions: TAKE 1 TABLET AT BEDTIME. tamsulosin 0.4 mg capsule 0.4 mg PO QPM Qty: 90 3RF tramadol 50 mg tablet 50 - 100 mg PO HS PRN (Reason: pain) Qty: 60 1RF Rx Instructions: 1 or 2 at bedtime orally PRN; calcium carbonate-vitamin D3 600 mg(1,500mg) -200 unit tablet 1 tab PO QAM nitroglycerin 0.4 mg tablet, sublingual 0.4 mg SL UD PRN (Reason: Chest Pain) buspirone 10 mg tablet 10 mg PO BID Qty: 60 2RF metformin 500 mg tablet extended release 24 hr 500 mg PO BID vitamin B complex Tablet 1 tab PO DAILY gabapentin 300 mg capsule 300 mg PO DAILY PRN (Reason: low back pain) cholecalciferol (vitamin D3) [Vitamin D3] 2,000 unit Tablet 2,000 unit PO QAM aspirin 81 mg Tablet,Delayed Release (Dr/Ec) 81 mg PO QAM coQ10 (ubiquinol) 200 mg Capsule 200 mg PO QAM pantoprazole 40 mg tablet,delayed release (DR/EC) 40 mg PO QAM Rx Instructions: TAKE 1 TABLET BY MOUTH EVERY MORNING zolpidem 5 mg tablet 5 mg PO DAILY Rx Instructions: 5 mg orally daily; clopidogrel 75 mg tablet 75 mg PO DAILY Qty: 60 2RF Referrals Referrals: Jen Valera CRNP [Primary Care Provider] -
[2025-06-24] MEDS: ONDANSETRON INJ 2 MG/ML 2 ML VIAL IV STA ×2 (00:56→01:36)
[2025-06-24] MEDS: SODIUM CHLORIDE 0.9% 500 ML IV STA (00:57)
[2025-06-24 01:05] LABS: Hematocrit (blood only) 37.4 % (42.0-52.0); Hemoglobin 11.5 g/dL (14.0-18.0); Immature Granulocytes # (auto) 0.02 K/uL (0.01-0.20); Immature Granulocytes % (auto) 0.3 %; Mean Corpuscular Hemoglobin 23.7 pg (25.0-34.0); Mean Corpuscular Volume 77.1 fL (80.0-100.0); Platelet Count 219 K/uL (130-400); RDW Standard Deviation 45.8 fL (36.4-46.3); Red Blood Count 4.85 M/uL (4.70-6.10); White Blood Count 6.89 K/ul (4.8-10.8)
[2025-06-24 01:23] LABS: Alanine Aminotransferase 16.0 U/L (7-52); Albumin Globulin Ratio 1.6 (0.9-2); Albumin Level 4.9 gm/dl (3.4-5.0); Alkaline Phosphatase 49.0 U/L (34-104); Anion Gap 8.0 (3-11); Bilirubin,Total 0.8 mg/dl (0.2-1.0); Blood Urea Nitrogen 16.0 mg/dl (6-23); Calcium 9.7 mg/dl (8.6-10.3); Carbon Dioxide 30.0 mmol/L (21-32); Chloride 102.0 mmol/L (98-107); Creatinine Clr Calc Pharmacy 60.4 ml/min; Globulin 3.0 gm/dl (2.5-4.0); Glucose 126.0 mg/dl (70-99(Fasting)); Lipase 69.0 U/L (11-82); Potassium 4.4 mmol/L (3.5-5.1); Sodium 140.0 mmol/L (136-145); Total Protein 7.9 gm/dl (6.0-8.3)
[2025-06-24 01:30] LABS: INR 1.1 (0.9-1.1); Prothrombin Time 11.3 Seconds (9.0-12.0)
[2025-06-24 01:44] LABS: Appearance Urine Clear (Clear); Bacteria Urine Automated None Seen (None Seen); Cast Urine Automated 0-2 /lpf (0-2); Epithelial Cell Urine Auto 0-2 /hpf (0-2); Glucose Urine UA Negative (Negative); RBC Urine Automated 0-2 /hpf (0-2); WBC Urine Automated 0-5 /hpf (0-5)
[2025-06-24] MEDS: OPTIRAY 320 100ml IV ONE (02:04)
[2025-06-24] MEDS: PROMETHAZINE 12.5 MG/50.5 ML BAG IV STA (02:21)
--- NOTE | 2025-06-24 02:33 | XRay Report ---
EXAM: XR chest 1V portable CLINICAL HISTORY: Nausea, Vomiting TECHNIQUE: An X-ray image of the chest is obtained in AP projection. COMPARISON: Compared to the previous study, dated 06/01/2025. FINDINGS: Pulmonary Parenchyma: Mild pulmonary vascular congestion. No evidence of consolidation, collapse, or focal opacities. No pulmonary nodules are identified. Atelectatic bands at bilateral middle lung zones. No evidence of pleural effusion or pleural thickening. Heart and Mediastinum: Cardiomegaly. No mediastinal widening or masses. No hilar or mediastinal lymphadenopathy. Retrocardiac air-fluid level suggestive of hiatus hernia. Bony Thorax: Bony thorax appears intact without fractures or deformities. Soft Tissues: Soft tissues overlying the chest wall are unremarkable. ECG leads are seen overlying the chest. IMPRESSION: 1. Cardiomegaly. Mild pulmonary vascular congestion. Stable. 2. Atelectatic bands at bilateral middle lung zones. Stable. 3. Retrocardiac air-fluid level suggestive of hiatus hernia. Stable. 4. No significant interval changes. Electronically signed by Pasquale Chu 06-24-2025 02:33 AM
--- NOTE | 2025-06-24 03:48 | CT Scan Report ---
EXAM: CT abd pelvis IV con only CLINICAL HISTORY: mid abd pain, vomiting TECHNIQUE: CT of the abdomen and pelvis was performed, with the following protocol: axial images, and reconstructed coronal and sagittal images. Intravenous contrast was administered. One of the following dose reduction techniques was utilized for this exam: Automated exposure control, adjustment of the mA and/or kV according to patient size, and use of iterative reconstruction. COMPARISON: 08/03/2022 FINDINGS: Sections of lower thorax show moderate sized hiatus hernia with interval dilatation of the herniated portion of the stomach which is fluid filled. Abdomen: Gastrointestinal tract: New interval development of circumferential mural thickening in the pyloric region of stomach, measuring 12 mm in maximum thickness with resultant dilatation of proximal stomach. Possibility of inflammatory/infective etiology appears likely. However, neoplastic etiology cannot be excluded. New interval development of dilated duodenum and proximal jejunum showing air fluid levels, with maximum caliber of 42 mm and transition point in the right upper quadrant where abrupt change in luminal caliber noted with suggestion of mural thickening in this region. Coronal image 29/100. The findings represent acute proximal small bowel obstruction, secondary to inflammatory stricture likely. Remote possibility of neoplastic etiology cannot be excluded. Mild circumferential mural thickening of few of jejunal bowel loops distal to this transition point also noted with borderline distension, measuring 29 mm in maximum caliber. Likely inflammatory changes. Uncomplicated colonic diverticulosis again noted. Appendix appears unremarkable. Liver: Normal in size, and density. No focal lesions, cysts, or masses were identified. Gallbladder and Biliary System: The gallbladder is partially distended. No radiodense gallstones were identified. Pancreas: Pancreatic head, body, and tail are visualized and appear normal in size and density. Spleen: Normal in size, shape, and density. No splenic lesions or masses were identified. Kidneys and Adrenal Glands: Both kidneys are normal in size. No renal calculi or hydronephrosis. Tiny bilateral parapelvic cysts. Stable Adrenal glands are unremarkable. Pelvis: Urinary Bladder: Partially distended with suggestion of redemonstration of minimal mucosal thickening at the base and neck of urinary bladder. Prostate is mildly enlarged, measuring 34 x 43 x 35 mm. Stable Peritoneal and Retroperitoneal Structures: No free fluid or abnormal fluid collections were identified within the abdomen or pelvis. The abdominal aorta and its branches shows atherosclerotic changes with calcified plaques. Bones and Soft Tissues: Advanced degenerative changes in lumbar spine. Grade I anterolisthesis of L4 over L5. Mild anterior wedging of T12 vertebral body with a large Schmorl's node along its superior endplate. Left inguinal hernia containing peritoneal fat noted. Stable Small umbilical hernia containing omental fat. Stable IMPRESSION: 1. New interval development of circumferential mural thickening in the pyloric region of stomach, measuring 12 mm in maximum thickness with resultant dilatation of proximal stomach. Possibility of inflammatory/infective etiology appears likely. However, neoplastic etiology cannot be excluded. Recommended endoscopic correlation 2. New interval development of dilated duodenum and proximal jejunum showing air fluid levels, with maximum caliber of 42 mm and transition point in the right upper quadrant where abrupt change in luminal caliber noted with suggestion of mural thickening in this region. Coronal image 29/100. The findings represent acute proximal small bowel obstruction, secondary to inflammatory stricture likely. Remote possibility of neoplastic etiology cannot be excluded. 3. Mild circumferential mural thickening of few of jejunal bowel loops distal to this transition point also noted with borderline distension, measuring 29 mm in maximum caliber. Likely inflammatory changes. 4. Sections of lower thorax show moderate sized hiatus hernia with interval dilatation of the herniated portion of the stomach which is fluid filled. 5. Mild prostatomegaly 6. Partially distended urinary bladder with suggestion of redemonstration of minimal mucosal thickening at the base and neck of urinary bladder. 7. Uncomplicated colonic diverticulosis again noted. 8. Left inguinal hernia containing peritoneal fat noted. Stable 9. Small umbilical hernia containing omental fat. Stable Electronically signed by Pasquale Chu 06-24-2025 03:48 AM
[2025-06-24] MEDS: SODIUM CHLORIDE 0.9% 1,000 ML IV ONE (04:07)
--- NOTE | 2025-06-24 04:14 | History & Physical Report ---
Date of Service June 24, 2025 Assessment & Plan (1) SBO (small bowel obstruction): (2) CAD (coronary artery disease): (3) Aortic stenosis: (4) Diabetes mellitus: (5) Hypertension: (6) GERD (gastroesophageal reflux disease): (7) Sarcoidosis: Plan 74yo male presenting with abdominal pain, nausea and vomiting. CT with concern for acute proximal SBO with transition point in the RUQ, possibly secondary to inflammatory stricture. #SBO - patient with no history of abdominal surgery. Reports he had similar symptoms approximately 1 week ago which resolved on their own in a day. NGT in place to [facility]. Discomfort still present, however improved -Admit to medical -Continue NGT to [facility] -NPO except medications -LR at 125mL/hr x 2L ordered -Morphine PRN pain -Zofra PRN nausea -General Surgery consultation appreciated -GI consultation regarding thickening of the pyloric region of the stomach. #CAD / HTN / HLP - patient with remote AR in 2004, 5 stents. Recent stent placement 06/03/2025 -Continue ASA 81mg po daily -Continue Plavix 75mg po daily -Continue Atorvastatin 40mg po qHS -Continue Lisinopril 10mg po BID -Continue Metoprolol XL 25mg po daily #Aortic Stenosis - moderate to severe per most recent echo. Patient euvolemic at present -Cautious use of fluids - ordered LR at 125mL/hr x 2L #Diabetes -Hold Metformin -ISS #Anxiety/Mental Health -Continue Buspirone 10mg po BID Ppx - Lovenox Full Code History of Present Illness Chief Complaint: abdominal pain, nausea and vomiting Primary Care Provider: MI Momin Boo Garcia is a 74yo male with history of DM, Mod-Severe (EDA 0.6-1) CAD with prior AR s/p recent cardiac catheterization with stent placement 06/03/2025 presenting with nausea, vomiting and abdominal pain. Patient was very busy during the day today working around the house and property. He did have some ongoing nausea and abdominal discomfort throughout the day. After eating dinner he developed more severe nausea and abdominal pain. He vomited with minimal relief but the discomfort and nausea persisted. Patient also with fatigue throughout the day. Otherwise denies fever, chills, chest pain, cough or worsening SOB - he does hae stable SOB at baseline. In the ER he is afebrile, HD stable Ongoing nausea, NGT has been placed to [facility] ER Course: Zofran 4mg IV x 2 doses NSS x 1.5L Phenergan 12.5mg Allergies Allergy/AdvReac Type Severity Reaction Status Date / Time No Known Drug Allergies Allergy Unknown . Verified 06/18/25 15:12 Home Medications Medication Instructions Recorded Confirmed Type calcium 600 mg (as 1 tab PO QAM 12/13/18 06/24/25 History carbonate)-vitamin D3 5 mcg (200 unit) tablet nitroglycerin 0.4 mg sublingual 0.4 mg sublingual UD PRN Chest Pain 12/13/18 06/24/25 History tablet aspirin 81 mg tablet,delayed 81 mg PO QAM 06/10/19 06/24/25 History release coQ10 (ubiquinol) 200 mg capsule 200 mg PO QAM 06/10/19 06/24/25 History cholecalciferol (vitamin D3) 50 2,000 unit PO QAM 09/03/19 06/24/25 History mcg (2,000 unit) tablet (Vitamin D3) metoprolol succinate 25 mg 25 mg PO QAM #90 tabs 07/23/24 06/24/25 Rx tablet,extended release 24 hr lisinopril 10 mg tablet 10 mg PO BID #180 tabs 10/15/24 06/24/25 Rx atorvastatin 40 mg tablet 40 mg PO HS #90 tabs 01/03/25 06/24/25 Rx metformin 500 mg tablet,extended 500 mg PO BID 04/15/25 06/24/25 History release 24 hr vitamin B complex 1 tab PO DAILY 04/15/25 06/24/25 History pantoprazole 40 mg tablet,delayed 40 mg PO QAM 06/01/25 06/24/25 History release zolpidem 5 mg tablet 5 mg PO DAILY 06/01/25 06/24/25 History clopidogrel 75 mg tablet 75 mg PO DAILY #60 tabs 06/04/25 06/24/25 Rx buspirone 10 mg tablet 10 mg PO BID #60 tabs 06/11/25 06/24/25 Rx tamsulosin 0.4 mg capsule 0.4 mg PO QPM #90 caps 06/14/25 06/24/25 Rx gabapentin 300 mg capsule 300 mg PO DAILY PRN low back pain 06/18/25 06/24/25 History tramadol 50 mg tablet 50 - 100 mg (1 - 2 x 50 mg) PO HS 06/18/25 06/24/25 Rx PRN pain #60 tabs Past Med/Surg History Problem List SBO (small bowel obstruction) (Acute) Anxiety Aortic stenosis (Acute) Acute congestive heart failure (Acute) Diabetes mellitus Degenerative lumbar disc Lumbar stenosis without neurogenic claudication History of osteoporosis Paresthesia of right lower extremity Lumbar radicular pain Lumbar spondylosis Dyspnea on exertion Post-nasal drip Joint pain in both hands Myalgia Arthritis Osteoporosis with fracture (Chronic) steroid induced, on reclast Peripheral neuropathy Obstructive sleep apnea "moderate" RONNIE: no device (non-compliant) Vitamin D deficiency (Chronic) Insomnia (Chronic) Chronic low back pain Prepatellar bursitis, left knee Unsteady gait (Acute) Neurogenic claudication Dyspnea Systolic murmur Iron deficiency anemia Aortic stenosis Now Moderate echo 01/22 Hypertension GERD (gastroesophageal reflux disease) (Chronic) BPH (benign prostatic hyperplasia) CAD (coronary artery disease) stents x5 total (~2002 & 2010) 2017 cardiac cath with 2V occlusive disease with patent stents (recommendations for medical management) Cervical spine degeneration Sarcoidosis stable, no longer on pred Dyslipidemia Medical History History of trigger finger both hands on pointer finger, ring finger and little finger Hx of Clostridium difficile infection Anxiety and depression Anemia CVA (cerebral vascular accident) 2010 (per cardiology note/patient denies during PAT interview) Pulmonary embolism (~2010) 2011 DX SUBDURAL HEMATOMA (WAS ON ELIQUIS FOR TX) Deep vein thrombosis RLE (2010) DX SUBDURAL HEMATOMA Myocardial Infarction (~2002) ? YEAR 2002 History of tumor Excision of abdominal wall tumor Glaucoma Surgical History History of tooth extraction History of repair of rotator cuff S/P tendon repair LEFT bicep repair S/P arthroscopy of left shoulder S/P epidural steroid injection cervical and lumbar History of esophagogastroduodenoscopy (EGD) History of colonoscopy History of vitrectomy bilateral History of heart artery stent x5 total stents (~2002 & 2010) History of cardiac cath multiple Status post repair of nerve Neuroplasty median nerve at carpal tunnel H/O inguinal hernia repair bilateral H/O hand surgery right hand reconstruction H/O brain surgery subdural hematoma (~2011) Family History Mother Congestive heart failure Cardiac disorder COPD (chronic obstructive pulmonary disease) Hypertension Father Prostate cancer COPD (chronic obstructive pulmonary disease) Son Family history of diabetes mellitus Other No family history of adverse response to anesthesia Denies family history of Ovarian cancer Myocardial infarction Breast cancer Colorectal cancer Social History Smoking Status: Never smoker Second Hand Exposure: No; Do You Dip or Chew Tobacco: No; Hx Alcohol Use: No Hx Substance Use: No Preferred Language: Greenlandic Communication Ability: Effective Visual Impairment: No Limitations Hearing Ability: Normal [employer] Required: No Beliefs That Will Affect Care: None marital status: Current Living Situation: Family current occupational status: retired current occupation: [employer] How many Children do You have: 2 Feels Safe at Home: Yes Childhood Exposure to Second-Hand Smoke: No Diet: regular caffeine: Yes Dental Care, Regularly: Yes Physical Activity Frequency: Daily Seatbelt Use: always Sunscreen Use: No Assistive Devices: None Review of Systems Review of Systems: All systems reviewed & are unremarkable except as noted in HPI & below Physical Exam Physical Exam: General: patient resting comfortably, NAD, non-toxic in appearance, AA&O x 4 Skin: warm, dry, intact, no rashes or lesions HEENT: NC/AT, PERRL, EOMI, anicteric sclera, conjunctiva without injection, external ear normal to inspection and nontender, nares patent, moist mucus membranes, dentition intact, no oropharyngeal lesions, neck supple, trachea midline, no LAD, no thyromegaly, no JVD Heart: +S1/S2, regular, 4/6 QUINTON across precordium Lungs: equal air entry bilaterally, no rales/rhonchi/wheezes Abd: +BS, soft, diffusely tender with no rebound/guarding, no masses/organomegaly/ascites Ext: warm, 2+ pulses in UE/LE bilaterally, no clubbing/cyanosis or edema Neuro: nonfocal, patient AA&O x 4, speech intact, no facial droop, moving all extremities on command with equal strength 5/5 Results & Data Results & Data Vital Signs (Past 12 Hours) Vital Signs Temp Pulse Pulse Resp BP Pulse Ox O2 Del Method 06/24/25 01:09 Room Air 06/24/25 01:09 80 94 Room Air 06/24/25 01:06 85 06/24/25 00:30 36.4 C L 84 18 153/89 H 96 Room Air Laboratory Results Laboratory Results WBC 6.89 K/ul (4.8-10.8) 06/24/25 00:38 RBC 4.85 M/uL (4.70-6.10) 06/24/25 00:38 Hgb 11.5 g/dL (14.0-18.0) L 06/24/25 00:38 Hct 37.4 % (42.0-52.0) L 06/24/25 00:38 MCV 77.1 fL (80.0-100.0) L 06/24/25 00:38 MCH 23.7 pg (25.0-34.0) L 06/24/25 00:38 MCHC 30.7 g/dL (32.0-36.0) L 06/24/25 00:38 RDW Std Deviation 45.8 fL (36.4-46.3) 06/24/25 00:38 RDW Coeff of Huma 16.5 % (11.5-14.5) H 06/24/25 00:38 Plt Count 219 K/uL (130-400) 06/24/25 00:38 MPV 8.9 fL (9.4-12.4) L 06/24/25 00:38 Immature Gran % (Auto) 0.3 % 06/24/25 00:38 Neut % (Auto) 72.9 % 06/24/25 00:38 Lymph % (Auto) 13.1 % 06/24/25 00:38 Tillman % (Auto) 10.0 % 06/24/25 00:38 Eos % (Auto) 2.8 % 06/24/25 00:38 Baso % (Auto) 0.9 % 06/24/25 00:38 Neut # (Auto) 5.03 K/uL (1.40-6.50) 06/24/25 00:38 Lymph # (Auto) 0.90 K/uL (1.20-3.40) L 06/24/25 00:38 Tillman # (Auto) 0.69 K/uL (0.11-0.59) H 06/24/25 00:38 Eos # (Auto) 0.19 K/uL (0.00-0.50) 06/24/25 00:38 Baso # (Auto) 0.06 K/uL (0.00-0.20) 06/24/25 00:38 Immature Gran # (Auto) 0.02 K/uL (0.01-0.20) 06/24/25 00:38 PT 11.3 Seconds (9.0-12.0) 06/24/25 00:38 INR 1.1 (0.9-1.1) 06/24/25 00:38 Sodium 140 mmol/L (136-145) 06/24/25 00:38 Potassium 4.4 mmol/L (3.5-5.1) 06/24/25 00:38 Chloride 102 mmol/L (98-107) 06/24/25 00:38 Carbon Dioxide 30 mmol/L (21-32) 06/24/25 00:38 Anion Gap 8 (3-11) 06/24/25 00:38 BUN 16 mg/dl (6-23) 06/24/25 00:38 Creatinine 1.15 mg/dl (0.6-1.4) 06/24/25 00:38 Est Cr Clr Drug Dosing 60.4 ml/min 06/24/25 00:38 eGFR 67.20 06/24/25 00:38 BUN/Creatinine Ratio 13.9 (10-20) 06/24/25 00:38 Glucose 126 mg/dl (70-99(Fasting)) H 06/24/25 00:38 Lactate 1.1 mmol/L (0.4-2.0) 06/24/25 04:15 Calcium 9.7 mg/dl (8.6-10.3) 06/24/25 00:38 Total Bilirubin 0.8 mg/dl (0.2-1.0) 06/24/25 00:38 AST 23 U/L (13-39) 06/24/25 00:38 ALT 16 U/L (7-52) 06/24/25 00:38 Alkaline Phosphatase 49 U/L (34-104) 06/24/25 00:38 Troponin I High Sens 12.0 pg/ml (0-20) 06/24/25 00:38 Total Protein 7.9 gm/dl (6.0-8.3) 06/24/25 00:38 Albumin 4.9 gm/dl (3.4-5.0) 06/24/25 00:38 Globulin 3.0 gm/dl (2.5-4.0) 06/24/25 00:38 Albumin/Globulin Ratio 1.6 (0.9-2) 06/24/25 00:38 Lipase 69 U/L (11-82) 06/24/25 00:38 Urine Color Yellow 06/24/25 00:51 Urine Appearance Clear (Clear) 06/24/25 00:51 Urine pH 6.0 (4.5-7.5) 06/24/25 00:51 Ur Specific Lawler 1.015 (1.000-1.030) 06/24/25 00:51 Urine Protein Negative (Negative) 06/24/25 00:51 Urine Glucose (UA) Negative (Negative) 06/24/25 00:51 Urine Ketones Negative (Negative) 06/24/25 00:51 Urine Blood Negative (Negative) 06/24/25 00:51 Urine Nitrite Negative (Negative) 06/24/25 00:51 Urine Bilirubin Negative (Negative) 06/24/25 00:51 Urine Urobilinogen Negative (Negative) 06/24/25 00:51 Ur Leukocyte Esterase Trace (Negative) H 06/24/25 00:51 Urine WBC (Auto) 0-5 /hpf (0-5) 06/24/25 00:51 Urine RBC (Auto) 0-2 /hpf (0-2) 06/24/25 00:51 U Hyaline Cast (Auto) 0-2 /lpf (0-2) 06/24/25 00:51 U Epithel Cells (Auto) 0-2 /hpf (0-2) 06/24/25 00:51 Urine Bacteria (Auto) None Seen (None Seen) 06/24/25 00:51 Urine Comment 06/24/25 00:51 Impressions Abdomen/Pelvis CT 06/24/25 00:43 EXAM: CT abd pelvis IV con only CLINICAL HISTORY: mid abd pain, vomiting TECHNIQUE: CT of the abdomen and pelvis was performed, with the following protocol: axial images, and reconstructed coronal and sagittal images. Intravenous contrast was administered. One of the following dose reduction techniques was utilized for this exam: Automated exposure control, adjustment of the mA and/or kV according to patient size, and use of iterative reconstruction. COMPARISON: 08/03/2022 FINDINGS: Sections of lower thorax show moderate sized hiatus hernia with interval dilatation of the herniated portion of the stomach which is fluid filled. Abdomen: Gastrointestinal tract: New interval development of circumferential mural thickening in the pyloric region of stomach, measuring 12 mm in maximum thickness with resultant dilatation of proximal stomach. Possibility of inflammatory/infective etiology appears likely. However, neoplastic etiology cannot be excluded. New interval development of dilated duodenum and proximal jejunum showing air fluid levels, with maximum caliber of 42 mm and transition point in the right upper quadrant where abrupt change in luminal caliber noted with suggestion of mural thickening in this region. Coronal image 29/100. The findings represent acute proximal small bowel obstruction, secondary to inflammatory stricture likely. Remote possibility of neoplastic etiology cannot be excluded. Mild circumferential mural thickening of few of jejunal bowel loops distal to this transition point also noted with borderline distension, measuring 29 mm in maximum caliber. Likely inflammatory changes. Uncomplicated colonic diverticulosis again noted. Appendix appears unremarkable. Liver: Normal in size, and density. No focal lesions, cysts, or masses were identified. Gallbladder and Biliary System: The gallbladder is partially distended. No radiodense gallstones were identified. Pancreas: Pancreatic head, body, and tail are visualized and appear normal in size and density. Spleen: Normal in size, shape, and density. No splenic lesions or masses were identified. Kidneys and Adrenal Glands: Both kidneys are normal in size. No renal calculi or hydronephrosis. Tiny bilateral parapelvic cysts. Stable Adrenal glands are unremarkable. Pelvis: Urinary Bladder: Partially distended with suggestion of redemonstration of minimal mucosal thickening at the base and neck of urinary bladder. Prostate is mildly enlarged, measuring 34 x 43 x 35 mm. Stable Peritoneal and Retroperitoneal Structures: No free fluid or abnormal fluid collections were identified within the abdomen or pelvis. The abdominal aorta and its branches shows atherosclerotic changes with calcified plaques. Bones and Soft Tissues: Advanced degenerative changes in lumbar spine. Grade I anterolisthesis of L4 over L5. Mild anterior wedging of T12 vertebral body with a large Schmorl's node along its superior endplate. Left inguinal hernia containing peritoneal fat noted. Stable Small umbilical hernia containing omental fat. Stable IMPRESSION: 1. New interval development of circumferential mural thickening in the pyloric region of stomach, measuring 12 mm in maximum thickness with resultant dilatation of proximal stomach. Possibility of inflammatory/infective etiology appears likely. However, neoplastic etiology cannot be excluded. Recommended endoscopic correlation 2. New interval development of dilated duodenum and proximal jejunum showing air fluid levels, with maximum caliber of 42 mm and transition point in the right upper quadrant where abrupt change in luminal caliber noted with suggestion of mural thickening in this region. Coronal image 29/100. The findings represent acute proximal small bowel obstruction, secondary to inflammatory stricture likely. Remote possibility of neoplastic etiology cannot be excluded. 3. Mild circumferential mural thickening of few of jejunal bowel loops distal to this transition point also noted with borderline distension, measuring 29 mm in maximum caliber. Likely inflammatory changes. 4. Sections of lower thorax show moderate sized hiatus hernia with interval dilatation of the herniated portion of the stomach which is fluid filled. 5. Mild prostatomegaly 6. Partially distended urinary bladder with suggestion of redemonstration of minimal mucosal thickening at the base and neck of urinary bladder. 7. Uncomplicated colonic diverticulosis again noted. 8. Left inguinal hernia containing peritoneal fat noted. Stable 9. Small umbilical hernia containing omental fat. Stable Electronically signed by Pasquale Chu 06-24-2025 03:48 AM Chest X-Ray 06/24/25 00:43 EXAM: XR chest 1V portable CLINICAL HISTORY: Nausea, Vomiting TECHNIQUE: An X-ray image of the chest is obtained in AP projection. COMPARISON: Compared to the previous study, dated 06/01/2025. FINDINGS: Pulmonary Parenchyma: Mild pulmonary vascular congestion. No evidence of consolidation, collapse, or focal opacities. No pulmonary nodules are identified. Atelectatic bands at bilateral middle lung zones. No evidence of pleural effusion or pleural thickening. Heart and Mediastinum: Cardiomegaly. No mediastinal widening or masses. No hilar or mediastinal lymphadenopathy. Retrocardiac air-fluid level suggestive of hiatus hernia. Bony Thorax: Bony thorax appears intact without fractures or deformities. Soft Tissues: Soft tissues overlying the chest wall are unremarkable. ECG leads are seen overlying the chest. IMPRESSION: 1. Cardiomegaly. Mild pulmonary vascular congestion. Stable. 2. Atelectatic bands at bilateral middle lung zones. Stable. 3. Retrocardiac air-fluid level suggestive of hiatus hernia. Stable. 4. No significant interval changes. Electronically signed by Pasquale Chu 06-24-2025 02:33 AM PG Care Time/CCT Total # of Minutes Spent Total Time Spent with Patient: Total time spent is greater than 50% in coordination of care (as documented) at patient's floor/unit and/or counseling patient: Coding Level of Care Code 34534 INT INP/OBS CARE 3/75MIN Diagnoses SBO (small bowel obstruction) K56.609 Coronary artery disease involving [place] heart without angina pectoris, unspecified vessel or lesion type I25.10 Coronary Disease-Associated Artery/Lesion type: unspecified vessel or lesion type [place] vs. transplanted heart: [place] heart Associated angina: without angina Aortic stenosis I35.0 Cardiac valve disease etiology: etiology unspecified Diabetes mellitus E11.9 Primary hypertension I10 Hypertension type: primary hypertension GERD (gastroesophageal reflux disease) K21.9 Sarcoidosis D86.9 (2) CAD (coronary artery disease) Coronary Disease-Associated Artery/Lesion type: unspecified vessel or lesion type [place] vs. transplanted heart: [place] heart Associated angina: without angina Qualified Code(s): I25.10 - Atherosclerotic heart disease of [place] coronary artery without angina pectoris (3) Aortic stenosis Cardiac valve disease etiology: etiology unspecified Qualified Code(s): I35.0 - Nonrheumatic aortic (valve) stenosis (5) Hypertension Hypertension type: primary hypertension Qualified Code(s): I10 - Essential (primary) hypertension
--- NOTE | 2025-06-24 05:50 | XRay Report ---
EXAM: XR KUB/Abdomen 1 view CLINICAL HISTORY: post ng tube placement TECHNIQUE: X-ray images of the abdomen were obtained in supine and upright positions. COMPARISON: No prior studies available for comparison. FINDINGS: Gas Pattern: Gas pattern within the abdomen is normal. No evidence of bowel obstruction or distention. Soft Tissues: Soft tissues of the abdomen appear normal without evidence of masses or calcifications. Liver, spleen, and kidneys are of normal size and position. Nasogastric tube is seen in proximal stomach with side holes are noted adjacent to the gastroesophageal junction/gastric cardia- need further 3-4 cm insertion. IMPRESSION: Nasogastric tube is seen in proximal stomach with side holes are noted adjacent to the gastroesophageal junction/gastric cardia- need further 3-4 cm insertion. Electronically signed by Juan Justice 06-24-2025 05:49 AM
[2025-06-24] MEDS ORDERED: DEXTROSE 50% 50 ML SYRINGE IV PRN (06:02)
[2025-06-24] MEDS ORDERED: GLUCAGON FOR INJ 1 MG VIAL SQ PRN (06:02)
[2025-06-24] MEDS ORDERED: GLUCOSE 40% GEL 15 GM TUBE PO PRN (06:02)
[2025-06-24] MEDS ORDERED: ONDANSETRON INJ 2 MG/ML 2 ML VIAL IV PRN (06:02)
[2025-06-24] MEDS ORDERED: CARBOHYDRATES FOR HYPOGLYCEMIA PO PRN (06:02)
[2025-06-24] MEDS ORDERED: GLUCOSE 10 TAB/TUBE PO PRN (06:02)
[2025-06-24] MEDS: MoRPHine SULFATE 4 MG/ML 1 ML CARP\\VIAL IV PRN (06:18)
[2025-06-24] MEDS: LACTATED RINGER'S 1,000 ML IV SCH (06:25)
[2025-06-24] MEDS: ENOXAPARIN INJ 40 MG/0.4 ML SYR SQ SCH (06:30)
[2025-06-24] MEDS ORDERED: INSULIN ASPART PER UNIT CHARGE SC SCH (07:30)
[2025-06-24] MEDS ORDERED: Nursing to Pharmacy Communication SCH (08:00)
--- NOTE | 2025-06-24 08:45 | XRay Report ---
EXAM: XR KUB/Abdomen 1 view CLINICAL HISTORY: NGT TECHNIQUE: X-ray images of the abdomen were obtained in supine position. COMPARISON: Comparison with the previous CR and CT studies dated 06/24/2025. FINDINGS: The nasogastric tube is positioned below the level of the hemidiaphragm, with its tip extending into the right hypochondrium region, probably within pylorus. Noted sliding hiatus hernia seen as retrocardiac shadow, proved in prior CT. Gas Pattern: Gas pattern within the abdomen is normal. No evidence of bowel obstruction or distention. Soft Tissues: Soft tissues of the abdomen appear normal without evidence of masses or calcifications. Liver, spleen, and kidneys are of normal size and position. IMPRESSION: The nasogastric tube is positioned below the level of the hemidiaphragm, with its tip extending into the right hypochondrium region, probably within pylorus. Electronically signed by Pasquale Chu 06-24-2025 08:44 AM
[2025-06-24] MEDS ORDERED: busPIRone 5 MG TAB PO SCH (09:00)
[2025-06-24] MEDS ORDERED: METOPROLOL SUCC 25MG EXT REL TAB PO SCH (09:00)
[2025-06-24] MEDS ORDERED: CLOPIDOGREL BISULFATE 75 MG TAB PO SCH (09:00)
[2025-06-24] MEDS ORDERED: ASPIRIN 81 MG ECTAB PO SCH (09:00)
[2025-06-24] MEDS: PANTOprazole 40 MG/10 ML SYR IV SCH (09:10)
--- NOTE | 2025-06-24 09:43 | Surgery Consultation ---
<Statement entered by Helena Elizalde MD - 06/24/25 15:59> I independently saw and examined the patient and I agree with the assessment and plan of care. Date of Consultation June 24, 2025 Assessment & Plan (1) SBO (small bowel obstruction): Plan Patient clinically is not an extremis, nausea and vomiting have resolved with NG tube, has minimal abdominal tenderness, no peritoneal signs, no evidence of perforation on CAT scan, so no indication for emergent surgical exploration at this time. We are recommending a GI consult for endoscopic evaluation of this wall thickening at the proximal duodenum and pylorus and, if possible, the other area of wall thickening at the jejunum. Further surgical planning will be dependent on these endoscopic findings. For now, keep n.p.o., IV fluids, as needed pain medication, may continue home medications with NG tube clamped, but hold Plavix, okay to continue Lovenox from a general surgery standpoint, no antibiotics indicated at this time. General surgery will continue to follow for now. History of Present Illness Reason for Consultation: SBO Attending Physician: Grayson Villalobos MD History of Present Illness Patient is a 74-year-old male with a past medical history significant for hypertension, hyperlipidemia, history of ID and coronary artery disease status post stenting, most recently on June 03, 2025, GERD, BPH, who presents to [facility] emergency department with complaints of lethargy as well as vague abdominal pain, nausea, and vomiting. Patient states that he initially began feeling unwell 2 days ago, vague nausea and mild but vague abdominal pain, unable to localize. He states that his nausea persisted and he tried taking Zofran at home with little effect. He states he tried eating pizza yesterday and developed a significant amount of abdominal pain with nausea, but was unable to vomit in spite of trying to make himself vomit, digitally. He states that this nausea persisted and so he came to the emergency department where he did actually vomit. Upon further questioning, he does mention that he had similar complaints approximately 1 week ago, however took Zofran at that time at this was effective at controlling his nausea. He otherwise denies any chest pain, shortness of breath, dyspnea, fevers, chills, constipation, or diarrhea. He was evaluated in the emergency department and was hemodynamically stable and afebrile. His labs were relatively unremarkable. He had a CAT scan of the abd omen pelvis which showed findings concerning of for focal wall thickening at the proximal duodenum and pylorus as well as a portion of the jejunum which appeared to be causing a small bowel obstruction. He was admitted to the medical service and general surgery was consulted today. An NG tube was placed in the emergency department and the patient states that he has had relief in his nausea with this in place. Allergies Allergy/AdvReac Type Severity Reaction Status Date / Time No Known Drug Allergies Allergy Unknown . Verified 06/18/25 15:12 Home Medications Medication Instructions Recorded Confirmed Type calcium 600 mg (as 1 tab PO QAM 12/13/18 06/24/25 History carbonate)-vitamin D3 5 mcg (200 unit) tablet nitroglycerin 0.4 mg sublingual 0.4 mg sublingual UD PRN Chest Pain 12/13/18 06/24/25 History tablet aspirin 81 mg tablet,delayed 81 mg PO QAM 06/10/19 06/24/25 History release coQ10 (ubiquinol) 200 mg capsule 200 mg PO QAM 06/10/19 06/24/25 History cholecalciferol (vitamin D3) 50 2,000 unit PO QAM 09/03/19 06/24/25 History mcg (2,000 unit) tablet (Vitamin D3) metoprolol succinate 25 mg 25 mg PO QAM #90 tabs 07/23/24 06/24/25 Rx tablet,extended release 24 hr lisinopril 10 mg tablet 10 mg PO BID #180 tabs 10/15/24 06/24/25 Rx atorvastatin 40 mg tablet 40 mg PO HS #90 tabs 01/03/25 06/24/25 Rx metformin 500 mg tablet,extended 500 mg PO BID 04/15/25 06/24/25 History release 24 hr vitamin B complex 1 tab PO DAILY 04/15/25 06/24/25 History pantoprazole 40 mg tablet,delayed 40 mg PO QAM 06/01/25 06/24/25 History release zolpidem 5 mg tablet 5 mg PO DAILY 06/01/25 06/24/25 History clopidogrel 75 mg tablet 75 mg PO DAILY #60 tabs 06/04/25 06/24/25 Rx buspirone 10 mg tablet 10 mg PO BID #60 tabs 06/11/25 06/24/25 Rx tamsulosin 0.4 mg capsule 0.4 mg PO QPM #90 caps 06/14/25 06/24/25 Rx gabapentin 300 mg capsule 300 mg PO DAILY PRN low back pain 06/18/25 06/24/25 History tramadol 50 mg tablet 50 - 100 mg (1 - 2 x 50 mg) PO HS 06/18/25 06/24/25 Rx PRN pain #60 tabs Patient History Medical History History of trigger finger both hands on pointer finger, ring finger and little finger Hx of Clostridium difficile infection Anxiety and depression Anemia CVA (cerebral vascular accident) 2010 (per cardiology note/patient denies during PAT interview) Pulmonary embolism (~2010) 2010 DX SUBDURAL HEMATOMA (WAS ON ELIQUIS FOR TX) Deep vein thrombosis RLE (2010) DX SUBDURAL HEMATOMA Myocardial Infarction (~2002) ? YEAR 2002 History of tumor Excision of abdominal wall tumor Glaucoma Surgical History History of tooth extraction History of repair of rotator cuff S/P tendon repair LEFT bicep repair S/P arthroscopy of left shoulder S/P epidural steroid injection cervical and lumbar History of esophagogastroduodenoscopy (EGD) History of colonoscopy History of vitrectomy bilateral History of heart artery stent x5 total stents (~2002 & 2010) History of cardiac cath multiple Status post repair of nerve Neuroplasty median nerve at carpal tunnel H/O inguinal hernia repair bilateral H/O hand surgery right hand reconstruction H/O brain surgery subdural hematoma (~2011) Family History Mother Congestive heart failure Cardiac disorder COPD (chronic obstructive pulmonary disease) Hypertension Father Prostate cancer COPD (chronic obstructive pulmonary disease) Son Family history of diabetes mellitus Other No family history of adverse response to anesthesia Denies family history of Ovarian cancer Myocardial infarction Breast cancer Colorectal cancer Social History Smoking Status: Never smoker Second Hand Exposure: No; Do You Dip or Chew Tobacco: No; Hx Alcohol Use: No Hx Substance Use: No Preferred Language: Salvadorean Communication Ability: Effective Visual Impairment: No Limitations Hearing Ability: Normal Spice Miller Required: No Beliefs That Will Affect Care: None marital status: Current Living Situation: Spouse current occupational status: retired current occupation: [employer] How many Children do You have: 2 Other Information That Helps Us Care for You: No Feels Safe at Home: Yes Safety Concerns: Feels Safe At This Time Childhood Exposure to Second-Hand Smoke: No Diet: regular caffeine: Yes Dental Care, Regularly: Yes Physical Activity Frequency: Daily Seatbelt Use: always Sunscreen Use: No Assistive Devices: Glasses Review of Systems Review of Systems: All systems reviewed & are unremarkable except as noted in HPI & below Physical Exam Physical Exam: Gen: Awake and alert, resting comfortably in bed in NAD, NG tube in place with bilious output noted CV: RRR PULM: non-labored breathing Abd: Abd soft, mildly distended, non-tender to palpation ext: no edema to bilateral lower ext, SCDs in place, non-tender, feet warm and well perfused Results & Data Vital Signs (Past 12 Hours) Vital Signs Temp Pulse Pulse Pulse Resp BP BP 06/24/25 07:42 37.4 C 83 14 122/78 06/24/25 06:35 06/24/25 06:35 37.3 C 81 16 06/24/25 05:00 81 16 06/24/25 04:53 80 06/24/25 04:00 70 20 06/24/25 03:00 83 18 06/24/25 02:11 83 16 06/24/25 01:30 80 16 06/24/25 01:09 06/24/25 01:09 80 06/24/25 01:06 85 06/24/25 00:41 78 06/24/25 00:30 36.4 C L 84 18 153/89 H BP Pulse Ox O2 Del Method 06/24/25 07:42 93 Room Air 06/24/25 06:35 Room Air 06/24/25 06:35 113/69 93 Room Air 06/24/25 05:00 132/79 96 Room Air 06/24/25 04:53 06/24/25 04:00 119/66 99 Room Air 06/24/25 03:00 123/71 93 Room Air 06/24/25 02:11 139/79 95 Room Air 06/24/25 01:30 152/85 H 93 Room Air 06/24/25 01:09 Room Air 06/24/25 01:09 94 Room Air 06/24/25 01:06 06/24/25 00:41 142/74 H 97 Room Air 06/24/25 00:30 96 Room Air Diagnostic Findings CT abd/pelvis: IMPRESSION: 1. New interval development of circumferential mural thickening in the pyloric region of stomach, measuring 12 mm in maximum thickness with resultant dilatation of proximal stomach. Possibility of inflammatory/infective etiology appears likely. However, neoplastic etiology cannot be excluded. Recommended endoscopic correlation 2. New interval development of dilated duodenum and proximal jejunum showing air fluid levels, with maximum caliber of 42 mm and transition point in the right upper quadrant where abrupt change in luminal caliber noted with suggestion of mural thickening in this region. Coronal image 29/100. The findings represent acute proximal small bowel obstruction, secondary to inflammatory stricture likely. Remote possibility of neoplastic etiology cannot be excluded. 3. Mild circumferential mural thickening of few of jejunal bowel loops distal to this transition point also noted with borderline distension, measuring 29 mm in maximum caliber. Likely inflammatory changes. 4. Sections of lower thorax show moderate sized hiatus hernia with interval dilatation of the herniated portion of the stomach which is fluid filled. 5. Mild prostatomegaly 6. Partially distended urinary bladder with suggestion of redemonstration of minimal mucosal thickening at the base and neck of urinary bladder. 7. Uncomplicated colonic diverticulosis again noted. 8. Left inguinal hernia containing peritoneal fat noted. Stable 9. Small umbilical hernia containing omental fat. Stable PG Care Time/CCT Total # of Minutes Spent Total Time Spent with Patient: Total time spent is greater than 50% in coordination of care (as documented) at patient's floor/unit and/or counseling patient: [place] [address] IN/OBS CONSULT LVL 5,80M Patient Type New History Problem Focused Exam Problem Focused Medical Decision Making High Complexity Diagnoses SBO (small bowel obstruction) K56.609
--- NOTE | 2025-06-24 12:46 | Electrocardiogram Report ---
Test Reason : Blood Pressure : */* mmHG Vent. Rate : 83 BPM Atrial Rate : 83 BPM P-R Int : 140 ms QRS Dur : 72 ms QT Int : 362 ms P-R-T Axes : 64 37 49 degrees QTcB Int : 425 ms Normal sinus rhythm Normal ECG When compared with ECG of 01-Jun-2025 07:37, No significant change was found Confirmed by Issac Burris ([id number]) on 06/24/2025 12:45:53 PM Referred By: REFERRED SELF Confirmed By: Issac Burris
[2025-06-24] MEDS: INSULIN ASPART PER UNIT CHARGE SC SCH (13:20)
--- NOTE | 2025-06-24 13:22 | Hospitalist Progress Note ---
Date of Service June 24, 2025 Assessment & Plan (1) SBO (small bowel obstruction): (2) CAD (coronary artery disease): (3) Aortic stenosis: (4) Diabetes mellitus: (5) Hypertension: (6) GERD (gastroesophageal reflux disease): (7) Sarcoidosis: Plan 74yo male presenting with abdominal pain, nausea and vomiting on 06/24/2025. #SBO patient with no history of abdominal surgery. Reports he had similar symptoms approximately 1 week ago which resolved on their own in a day. CTAP w/ interval development of thickening in pyloric region of stomach; dilated duodenum & proximal jejunum showing air fluid levels suggestive of SBO secondary to inflammatory stricture. Neoplastic etiology cannot be excluded. CBC w/ no leukocytosis. BMP w/ stable renal function & electrolytes NGT to [facility] showing NG tube in place. General surgery consulted --> recommending EGD GI consulted --> EGD timing TBD. NPO; Continue IVF Morphine prn pain; Zofran prn nausea. #CAD / HTN / HLP patient with remote ND in 2004, 5 stents. Recent stent placement 06/03/2025 PO medications are on hold, will be resumed when able. Home meds include: ASA, Plavix, Statin, Lisinopril, & Metoprolol XL. #Aortic Stenosis moderate to severe per most recent echo. Patient euvolemic at present Cautious use of fluids - LR rate reduced to 80ml/hr. #Diabetes Hold Metformin ISS #Anxiety/Mental Health Continue Buspirone 10mg po BID Ppx - Lovenox Full Code Admission and Anticipated Discharge Date Admission Date: June 24, 2025 Supervising Physician Co-Signing Physician Notes The patient was not seen by me. The chart was reviewed. Case discussed with JORGE Alves. Agree with assessment and plan Subjective Boo was seen& examined this morning. He reports he is still having abdominal pain but it does feel improved. He reports nausea but no vomiting. Reports throat discomfort from NG tube placement. He states he has not passed gas thus far or had a BM. Physical Exam Physical Exam: General: NAD, VS: BP 118/66; P82; R18; T37.4C Abd: normal bowel sounds, non tender, soft Extremities: no edema Neuro: A&O x3, Skin: intact, no lesions noted Results & Data Results & Data Vital Signs (Past 12 Hours) Vital Signs Temp Pulse Pulse Pulse Resp BP BP 06/24/25 11:52 37.4 C 82 18 118/66 06/24/25 07:42 37.4 C 83 14 122/78 06/24/25 06:35 06/24/25 06:35 37.3 C 81 16 113/69 06/24/25 05:00 81 16 132/79 06/24/25 04:53 80 06/24/25 04:00 70 20 119/66 06/24/25 03:00 83 18 123/71 06/24/25 02:11 83 16 139/79 06/24/25 01:30 80 16 152/85 H Pulse Ox O2 Del Method 06/24/25 11:52 91 Room Air 06/24/25 07:42 93 Room Air 06/24/25 06:35 Room Air 06/24/25 06:35 93 Room Air 06/24/25 05:00 96 Room Air 06/24/25 04:53 06/24/25 04:00 99 Room Air 06/24/25 03:00 93 Room Air 06/24/25 02:11 95 Room Air 06/24/25 01:30 93 Room Air PG Care Time/CCT Total # of Minutes Spent Total Time Spent with Patient: Total time spent is greater than 50% in coordination of care (as documented) at patient's floor/unit and/or counseling patient: Coding Level of Care Code None Diagnoses SBO (small bowel obstruction) K56.609 Coronary artery disease involving zuni heart without angina pectoris, unspecified vessel or lesion type I25.10 Associated angina: without angina Coronary Disease-Associated Artery/Lesion type: unspecified vessel or lesion type [place] vs. transplanted heart: zuni heart Aortic stenosis I35.0 Cardiac valve disease etiology: etiology unspecified Diabetes mellitus E11.9 Primary hypertension I10 Hypertension type: primary hypertension GERD (gastroesophageal reflux disease) K21.9 Sarcoidosis D86.9 (2) CAD (coronary artery disease) Associated angina: without angina Coronary Disease-Associated Artery/Lesion type: unspecified vessel or lesion type [place] vs. transplanted heart: zuni heart Qualified Code(s): I25.10 - Atherosclerotic heart disease of zuni coronary artery without angina pectoris (3) Aortic stenosis Cardiac valve disease etiology: etiology unspecified Qualified Code(s): I35.0 - Nonrheumatic aortic (valve) stenosis (5) Hypertension Hypertension type: primary hypertension Qualified Code(s): I10 - Essential (primary) hypertension
--- NOTE | 2025-06-24 14:22 | Gastrointestinal Consultation ---
<Statement entered by Azar Donovan MD - 06/24/25 17:29> ATTENDING ADDENDUM The patient was seen and evaluated. Hospital labs, data, records and imaging reviewed at length. The case was discussed with the GI physician cancer genetics assistant and I agree with her assessment and plan as outlined above. The patient presents with small bowel obstruction of unclear etiology. This could represent a component of inflammatory bowel disease, ulcerative jejunitis, cannot rule out any neoplasia. The patient will require upper endoscopy/enteroscopy in light of findings as above once clinical condition has improved. Thank you for the courtesy of this consultation. Date of Consultation June 24, 2025 Assessment & Plan (1) SBO (small bowel obstruction): Patient continues with NG tube placement. Surgery following. -Will need eventual EGD for evaluation of CT findings. Will discuss timing further with Dr. Donovan. History of Present Illness Reason for Consultation: SBO, pyloric thickening Attending Physician: Grayson Villalobos MD History of Present Illness Patient is a 74 yo male who presented to [facility] with an abrupt onset of abdominal pain, n/v. He presented to [facility] and was found to have a small bowel obstruction on CT imaging at the site of the duodenum/jejunum. CT also suggested possible inflammatory stricture at the pylorus. Patient has an NG tube in place and is being seen by general surgery. He does not have a history of abdominal surgery. He has a history of iron deficiency anemia. Last EGD in 2021 showed gastritis. He does take Pantoprazole at home. He notes improvement in his abdominal pain/n/v since NG tube placement. He is on Plavix 75 mg daily and Aspirin [address] abdomen/pelvis: IMPRESSION: 1. New interval development of circumferential mural thickening in the pyloric region of stomach, measuring 12 mm in maximum thickness with resultant dilatation of proximal stomach. Possibility of inflammatory/infective etiology appears likely. However, neoplastic etiology cannot be excluded. Recommended endoscopic correlation 2. New interval development of dilated duodenum and proximal jejunum showing air fluid levels, with maximum caliber of 42 mm and transition point in the right upper quadrant where abrupt change in luminal caliber noted with suggestion of mural thickening in this region. Coronal image 29/100. The findings represent acute proximal small bowel obstruction, secondary to inflammatory stricture likely. Remote possibility of neoplastic etiology cannot be excluded. 3. Mild circumferential mural thickening of few of jejunal bowel loops distal to this transition point also noted with borderline distension, measuring 29 mm in maximum caliber. Likely inflammatory changes. 4. Sections of lower thorax show moderate sized hiatus hernia with interval dilatation of the herniated portion of the stomach which is fluid filled. 5. Mild prostatomegaly 6. Partially distended urinary bladder with suggestion of redemonstration of minimal mucosal thickening at the base and neck of urinary bladder. 7. Uncomplicated colonic diverticulosis again noted. 8. Left inguinal hernia containing peritoneal fat noted. Stable 9. Small umbilical hernia containing omental fat. Stable Allergies Allergy/AdvReac Type Severity Reaction Status Date / Time No Known Drug Allergies Allergy Unknown . Verified 06/18/25 15:12 Home Medications Medication Instructions Recorded Confirmed Type calcium 600 mg (as 1 tab PO QAM 12/13/18 06/24/25 History carbonate)-vitamin D3 5 mcg (200 unit) tablet nitroglycerin 0.4 mg sublingual 0.4 mg sublingual UD PRN Chest Pain 12/13/18 06/24/25 History tablet aspirin 81 mg tablet,delayed 81 mg PO QAM 06/10/19 06/24/25 History release coQ10 (ubiquinol) 200 mg capsule 200 mg PO QAM 06/10/19 06/24/25 History cholecalciferol (vitamin D3) 50 2,000 unit PO QAM 09/03/19 06/24/25 History mcg (2,000 unit) tablet (Vitamin D3) metoprolol succinate 25 mg 25 mg PO QAM #90 tabs 07/23/24 06/24/25 Rx tablet,extended release 24 hr lisinopril 10 mg tablet 10 mg PO BID #180 tabs 10/15/24 06/24/25 Rx atorvastatin 40 mg tablet 40 mg PO HS #90 tabs 01/03/25 06/24/25 Rx metformin 500 mg tablet,extended 500 mg PO BID 04/15/25 06/24/25 History release 24 hr vitamin B complex 1 tab PO DAILY 04/15/25 06/24/25 History pantoprazole 40 mg tablet,delayed 40 mg PO QAM 06/01/25 06/24/25 History release zolpidem 5 mg tablet 5 mg PO DAILY 06/01/25 06/24/25 History clopidogrel 75 mg tablet 75 mg PO DAILY #60 tabs 06/04/25 06/24/25 Rx buspirone 10 mg tablet 10 mg PO BID #60 tabs 06/11/25 06/24/25 Rx tamsulosin 0.4 mg capsule 0.4 mg PO QPM #90 caps 06/14/25 06/24/25 Rx gabapentin 300 mg capsule 300 mg PO DAILY PRN low back pain 06/18/25 06/24/25 History tramadol 50 mg tablet 50 - 100 mg (1 - 2 x 50 mg) PO HS 06/18/25 06/24/25 Rx PRN pain #60 tabs Patient History Medical History History of trigger finger both hands on pointer finger, ring finger and little finger Hx of Clostridium difficile infection Anxiety and depression Anemia CVA (cerebral vascular accident) 2010 (per cardiology note/patient denies during PAT interview) Pulmonary embolism (~2010) 2011 DX SUBDURAL HEMATOMA (WAS ON ELIQUIS FOR TX) Deep vein thrombosis RLE (2010) DX SUBDURAL HEMATOMA Myocardial Infarction (~2002) ? YEAR 2002 History of tumor Excision of abdominal wall tumor Glaucoma Surgical History History of tooth extraction History of repair of rotator cuff S/P tendon repair LEFT bicep repair S/P arthroscopy of left shoulder S/P epidural steroid injection cervical and lumbar History of esophagogastroduodenoscopy (EGD) History of colonoscopy History of vitrectomy bilateral History of heart artery stent x5 total stents (~2002 & 2010) History of cardiac cath multiple Status post repair of nerve Neuroplasty median nerve at carpal tunnel H/O inguinal hernia repair bilateral H/O hand surgery right hand reconstruction H/O brain surgery subdural hematoma (~2011) Family History Mother Congestive heart failure Cardiac disorder COPD (chronic obstructive pulmonary disease) Hypertension Father Prostate cancer COPD (chronic obstructive pulmonary disease) Son Family history of diabetes mellitus Other No family history of adverse response to anesthesia Denies family history of Ovarian cancer Myocardial infarction Breast cancer Colorectal cancer Social History Smoking Status: Never smoker Second Hand Exposure: No; Do You Dip or Chew Tobacco: No; Hx Alcohol Use: No Hx Substance Use: No Preferred Language: Khmer Communication Ability: Effective Visual Impairment: No Limitations Hearing Ability: Normal Diversity Intern Required: No Beliefs That Will Affect Care: None marital status: Current Living Situation: Spouse current occupational status: retired current occupation: [employer] How many Children do You have: 2 Other Information That Helps Us Care for You: No Feels Safe at Home: Yes Safety Concerns: Feels Safe At This Time Childhood Exposure to Second-Hand Smoke: No Diet: regular caffeine: Yes Dental Care, Regularly: Yes Physical Activity Frequency: Daily Seatbelt Use: always Sunscreen Use: No Assistive Devices: Glasses Review of Systems Constitutional: no fever and no chills Gastrointestinal: + abdominal pain, + nausea and + vomitin g Psychiatric: no problem reported Physical Exam Constitutional: well developed Respiratory: normal respiratory effort Gastrointestinal (Abdomen): normal bowel sounds, soft, nontender, no hepatosplenomegaly Psychiatric: Orientation: alert and oriented x 3 Results & Data Vital Signs (Past 12 Hours) Vital Signs Temp Pulse Pulse Pulse Resp BP BP 06/24/25 11:52 37.4 C 82 18 118/66 06/24/25 07:42 37.4 C 83 14 122/78 06/24/25 06:35 06/24/25 06:35 37.3 C 81 16 113/69 06/24/25 05:00 81 16 132/79 06/24/25 04:53 80 06/24/25 04:00 70 20 119/66 06/24/25 03:00 83 18 123/71 Pulse Ox O2 Del Method 06/24/25 11:52 91 Room Air 06/24/25 07:42 93 Room Air 06/24/25 06:35 Room Air 06/24/25 06:35 93 Room Air 06/24/25 05:00 96 Room Air 06/24/25 04:53 06/24/25 04:00 99 Room Air 06/24/25 03:00 93 Room Air PG Care Time/CCT Total # of Minutes Spent Total Time Spent with Patient: Total time spent is greater than 50% in coordination of care (as documented) at patient's floor/unit and/or counseling patient: Coding Level of Care Code 06270 INT INP/OBS CARE 3/75MIN Diagnoses SBO (small bowel obstruction) K56.609
[2025-06-24] MEDS ORDERED: ATORVASTATIN 40 MG TAB PO SCH (21:00)
[2025-06-24] MEDS ORDERED: TAMSULOSIN HCL 0.4 MG CAP PO SCH (21:00)
[2025-06-25] MEDS ORDERED: CHLORASEPTIC (PHENOL) 1.4% SOLN 180 ML BTL MT PRN (00:04)
[2025-06-25] MEDS: LIDOCAINE 5% 1 PATCH TD STA (02:00)
[2025-06-25] MEDS: LORazepam Inj 0.25 MG in SYRINGE 0.125 ML IV PRN (03:08)
[2025-06-25] MEDS: D5W AND LACTATED RINGERS 1,000 ML IV SCH (06:38)
[2025-06-25 07:25] LABS: Hematocrit (blood only) 32.1 % (42.0-52.0); Hemoglobin 9.8 g/dL (14.0-18.0); Mean Corpuscular Hemoglobin 23.8 pg (25.0-34.0); Mean Corpuscular Volume 78.1 fL (80.0-100.0); Platelet Count 173 K/uL (130-400); RDW Standard Deviation 47.6 fL (36.4-46.3); Red Blood Count 4.11 M/uL (4.70-6.10); White Blood Count 5.13 K/ul (4.8-10.8)
[2025-06-25 07:48] LABS: Anion Gap 7.0 (3-11); Blood Urea Nitrogen 13.0 mg/dl (6-23); Calcium 8.4 mg/dl (8.6-10.3); Carbon Dioxide 30.0 mmol/L (21-32); Chloride 102.0 mmol/L (98-107); Creatinine Clr Calc Pharmacy 80.8 ml/min; Glucose 89.0 mg/dl (70-99(Fasting)); Iron 20.0 mcg/dl (35-175); Potassium 4.6 mmol/L (3.5-5.1); Sodium 139.0 mmol/L (136-145); Total Iron Binding Cap Calc 370.0 mcg/dl (250-450); Transferrin 264.0 mg/dl (200-360); Transferrin (FE) Percent Satur 5.0 % (20-50)
[2025-06-25] MEDS: CLOPIDOGREL BISULFATE 75 MG TAB PO ONE (09:11)
--- NOTE | 2025-06-25 09:44 | Gastroenterology Progress Note ---
Date of Service June 25, 2025 Assessment & Plan (1) SBO (small bowel obstruction): Plan: 74 year old male w/ history of DM, Mod-Severe , CAD with prior [place] s/p recent cardiac catheterization with stent placement 06/03/2025 admitted w abd pain, nausea/vomiting on 06/24 CTAP w/ circumferential mural thickening in the pyloric region of stomach w/ dilation of stomach, duodenum and proximal jejunum w/ transition point in the right upper quadrant where abrupt change in luminal caliber noted with suggestion of mural thickening in this region. Maintain NPO status w/ NG to LIS. Follow KUBs. Will need EGD/enteroscopy once medically optimized and SBO obstructive process improves. Hold ASA/Plavix if able. Continue IV PPI. Appreciate general surgery input. We appreciate assistance in the management of any serological abnormality and corrections to include: hemoglobin >7, INR <2, platelets >50,000, potassium levels >3.5 but <5.3, and sodium levels within 5 points of the reference range prior to endoscopic evaluation. Thank you for allowing us to participate in the care of this patient. Please call with any acute changes, questions or concerns. Please see addendum below with additional recommendation from my supervising physician. I spent a total of 40 minutes on the date of service in review of patient's record, and previously obtained information in person and appropriate medical visit, discussion and education of plan, with patient and/or caregiver, placing orders for tests/referral/procedures as medically necessary and documentation of pertinent clinical information in patient's medical records for their visit today. Admission and Anticipated Discharge Date Admission Date: June 24, 2025 Subjective Pt remains NPO w. NG to LIS. He has had output overnight. Abd pain and distention still present but he notes less severe. He passed some gas yesterday but does not recall any significant gas or stool today. Has been OOB to ambulate this AM. Review of Systems Review of Systems: All other findings negative except as noted in HPI. Physical Exam Constitutional: WD/WN, vitals as above Respiratory: normal respiratory effort, lungs clear to auscultation Cardiovascular: RRR, no murmur, no edema Gastrointestinal (Abdomen): normal bowel sounds, soft, nontender, no hepatosplenomegaly Skin: no rashes, warm and dry Results & Data Results & Data Vital Signs (Past 12 Hours) Vital Signs Temp Pulse Resp BP BP Pulse Ox O2 Del Method 06/25/25 07:35 99.3 F 84 16 129/64 90 Room Air 06/25/25 01:26 98.8 F 110 H 20 162/76 H 90 Room Air 06/25/25 00:07 99.5 F 84 16 146/84 H 94 Room Air Laboratory Results 06/25/25 06/25/25 06/24/25 Range/Units 06:57 06:09 23:46 WBC 5.13 (4.8-10.8) K/ul RBC 4.11 L (4.70-6.10) M/uL Hgb 9.8 L (14.0-18.0) g/dL Hct 32.1 L (42.0-52.0) % MCV 78.1 L (80.0-100.0) fL MCH 23.8 L (25.0-34.0) pg MCHC 30.5 L (32.0-36.0) g/dL RDW Std Deviation 47.6 H (36.4-46.3) fL RDW Coeff of Huma 16.7 H (11.5-14.5) % Plt Count 173 (130-400) K/uL MPV 9.2 L (9.4-12.4) fL Sodium 139 (136-145) mmol/L Potassium 4.6 (3.5-5.1) mmol/L Chloride 102 (98-107) mmol/L Carbon Dioxide 30 (21-32) mmol/L Anion Gap 7 (3-11) BUN 13 (6-23) mg/dl Creatinine 0.86 (0.6-1.4) mg/dl Est Cr Clr Drug Dosing 80.8 ml/min eGFR 91.43 BUN/Creatinine Ratio 15.1 (10-20) Glucose 89 (70-99(Fasting)) mg/dl POC Glucose 70 85 (70-99) mg/dl Calcium 8.4 L (8.6-10.3) mg/dl Iron 20 L (35-175) mcg/dl TIBC 370 (250-450) mcg/dl Transferrin 264 (200-360) mg/dl Transferrin % Sat 5 L (20-50) % 06/24/25 06/24/25 Range/Units 18:02 12:35 WBC (4.8-10.8) K/ul RBC (4.70-6.10) M/uL Hgb (14.0-18.0) g/dL Hct (42.0-52.0) % MCV (80.0-100.0) fL MCH (25.0-34.0) pg MCHC (32.0-36.0) g/dL RDW Std Deviation (36.4-46.3) fL RDW Coeff of Huma (11.5-14.5) % Plt Count (130-400) K/uL MPV (9.4-12.4) fL Sodium (136-145) mmol/L Potassium (3.5-5.1) mmol/L Chloride (98-107) mmol/L Carbon Dioxide (21-32) mmol/L Anion Gap (3-11) BUN (6-23) mg/dl Creatinine (0.6-1.4) mg/dl Est Cr Clr Drug Dosing ml/min eGFR BUN/Creatinine Ratio (10-20) Glucose (70-99(Fasting)) mg/dl POC Glucose 89 91 (70-99) mg/dl Calcium (8.6-10.3) mg/dl Iron (35-175) mcg/dl TIBC (250-450) mcg/dl Transferrin (200-360) mg/dl Transferrin % Sat (20-50) % PG Care Time/CCT Total # of Minutes Spent Total Time Spent with Patient: Total time spent is greater than 50% in coordination of care (as documented) at patient's floor/unit and/or counseling patient: Coding Level of Care Code 21663 SUB INP/OBS CARE 2/35MIN Diagnoses SBO (small bowel obstruction) K56.609
[2025-06-25] MEDS ORDERED: GABAPENTIN 300 MG CAP PO PRN (10:38)
--- NOTE | 2025-06-25 10:44 | Hospitalist Progress Note ---
Date of Service June 25, 2025 Assessment & Plan (1) SBO (small bowel obstruction): (2) CAD (coronary artery disease): (3) Aortic stenosis: (4) Diabetes mellitus: (5) Hypertension: (6) GERD (gastroesophageal reflux disease): (7) Sarcoidosis: Plan 74yo male presenting with abdominal pain, nausea and vomiting on 06/24/2025. #SBO patient with no history of abdominal surgery. Reports he had similar symptoms approximately 1 week ago which resolved on their own in a day. CTAP w/ interval development of thickening in pyloric region of stomach; dilated duodenum & proximal jejunum showing air fluid levels suggestive of SBO secondary to inflammatory stricture. Neoplastic etiology cannot be excluded. Repeat KUB 06/25 - neg for bowel distention. moderate retained stool CBC w/ no leukocytosis. BMP w/ stable renal function & electrolytes NGT to [facility] General surgery consulted --> recommending EGD GI consulted --> EGD set for 06/26. NPO; Continue IVF Morphine prn pain; Zofran prn nausea. #CAD / HTN / HLP patient with remote LA in 2004, 5 stents. Recent stent placement 06/03/2025 resume Plavix & metoprolol. Given recent stent placement Plavix should be continued. #Aortic Stenosis moderate to severe per most recent echo. Patient euvolemic at present Cautious use of fluids - LR rate reduced to 80ml/hr. #Diabetes Hold Metformin ISS #Anxiety/Mental Health Continue Buspirone 10mg po BID s/p 0.25mg IV Ativan x 2; Hydroxyzine added prn to help with worsening anxiety. Ppx - Lovenox Full Code Admission and Anticipated Discharge Date Admission Date: June 24, 2025 Supervising Physician Co-Signing Physician Notes The patient was not seen by me. The chart was reviewed. Case discussed with JORGE Alves. Agree with assessment and plan Subjective Boo was seen & examined this morning. He reports that he had a rough night and experienced a panic attack. he states that walking the halls helped ease his anxiety. reports he is anxious regarding what is causing his bowel obstruction. he does report no abdominal pain, no nausea/vomiting, and he has passed gas but has not had a BM. Physical Exam Physical Exam: General: NAD, VS: BP 132/72; P85; R16; T37.6C Resp: normal respiratory effort GI: soft, nontender to palpation, absent BS Extremities: Moves all extremities, no edema Neuro: A&O x3 Skin: intact, no lesions noted Results & Data Results & Data Vital Signs (Past 12 Hours) Vital Signs Temp Pulse Resp BP BP Pulse Ox O2 Del Method 06/25/25 07:35 37.4 C 84 16 129/64 90 Room Air 06/25/25 01:26 37.1 C 110 H 20 162/76 H 90 Room Air 06/25/25 00:07 37.5 C 84 16 146/84 H 94 Room Air PG Care Time/CCT Total # of Minutes Spent Total Time Spent with Patient: Total time spent is greater than 50% in coordination of care (as documented) at patient's floor/unit and/or counseling patient: Coding Level of Care Code 76175 SUB INP/OBS CARE MIN Diagnoses SBO (small bowel obstruction) K56.609 Coronary artery disease involving [place] heart without angina pectoris, unspecified vessel or lesion type I25.10 Associated angina: without angina Coronary Disease-Associated Artery/Lesion type: unspecified vessel or lesion type [place] vs. transplanted heart: [place] heart Aortic stenosis I35.0 Cardiac valve disease etiology: etiology unspecified Diabetes mellitus E11.9 Primary hypertension I10 Hypertension type: primary hypertension GERD (gastroesophageal reflux disease) K21.9 Sarcoidosis D86.9 (2) CAD (coronary artery disease) Associated angina: without angina Coronary Disease-Associated Artery/Lesion type: unspecified vessel or lesion type [place] vs. transplanted heart: [place] heart Qualified Code(s): I25.10 - Atherosclerotic heart disease of [place] coronary artery without angina pectoris (3) Aortic stenosis Cardiac valve disease etiology: etiology unspecified Qualified Code(s): I35.0 - Nonrheumatic aortic (valve) stenosis (5) Hypertension Hypertension type: primary hypertension Qualified Code(s): I10 - Essential (primary) hypertension
--- NOTE | 2025-06-25 10:56 | XRay Report ---
KUB HISTORY: reassess sbo COMPARISON STUDY: 06/24/2025 FINDINGS: Nasogastric tube tip is in the distal stomach. There is moderate retained stool. No bowel d istention seen. No gross free air. IMPRESSION: No bowel distention seen. ACT 112: Negative or not required by law. The above report was generated using voice recognition software. It may contain grammatical, syntax o r spelling errors. Electronically signed by: Papito Miranda M.D. 06/25/2025 10:54 AM
[2025-06-25] MEDS: LORazepam Inj 0.25 MG in SYRINGE 0.125 ML IV STA (11:00)
[2025-06-25] MEDS: REMOVE LIDODERM PATCH SCH (13:46)
--- NOTE | 2025-06-25 13:50 | Surgery Progress Note ---
Date of Service June 25, 2025 Assessment & Plan (1) SBO (small bowel obstruction): Plan: GI is planning an EGD tomorrow No plans for any surgical intervention at this time Will follow-up Admission and Anticipated Discharge Date Admission Date: June 24, 2025 Subjective Patient seen examined. No abdominal pain. No flatus or bowel movement. No emesis since NG tube placement. Vital stable. Review of Systems Constitutional: no fever and no chills Respiratory: no cough and no dyspnea Cardiovascular: no chest pain and no dyspnea on exertion Gastrointestinal: no abdominal pain, no nausea and no vomiting Genitourinary: no dysuria, no nocturia or no flank pain Integumentary: no acne, no lesions and no dry skin Psychiatric: no behavioral changes and no depression Hematologic / Lymphatic: no easy bleeding and no easy bruising Physical Exam Constitutional: WD/WN, vitals as above Eyes: PERRL, conjunctivae normal, anicteric sclerae Respiratory: normal respiratory effort, lungs clear to auscultation Cardiovascular: RRR, no murmur, no edema Gastrointestinal (Abdomen): Inspection/Auscultation: abdomen normal to inspection; abdomen not distended Percussion/Palpation: abdomen soft; abdomen nontender and no guarding Musculoskeletal: no cyanosis or clubbing, extremities motor strength 5/5 Skin: no rashes, warm and dry Psychiatric: A+Ox3, euthymic affect Results & Data Vital Signs (Past 12 Hours) Vital Signs Temp Pulse Resp BP Pulse Ox O2 Del Method 06/25/25 07:35 37.4 C 84 16 129/64 90 Room Air PG Care Time/CCT Total # of Minutes Spent Total Time Spent with Patient: Total time spent is greater than 50% in coordination of care (as documented) at patient's floor/unit and/or counseling patient: Coding Level of Care Code 84001 SUB INP/OBS CARE 08/25MIN Diagnoses SBO (small bowel obstruction) K56.609
[2025-06-25] MEDS: busPIRone 5 MG TAB PO SCH (20:06)
[2025-06-25] MEDS: LIDOCAINE 5% 1 PATCH TD SCH (20:06)
[2025-06-25] MEDS ORDERED: Nursing to Pharmacy Communication SCH (20:45)
[2025-06-25] MEDS ORDERED: REMOVE LIDODERM PATCH SCH (21:00)
[2025-06-26 08:06] LABS: Hematocrit (blood only) 31.9 % (42.0-52.0); Hemoglobin 9.9 g/dL (14.0-18.0); Immature Granulocytes # (auto) 0.02 K/uL (0.01-0.20); Immature Granulocytes % (auto) 0.3 %; Mean Corpuscular Hemoglobin 23.8 pg (25.0-34.0); Mean Corpuscular Volume 76.7 fL (80.0-100.0); Platelet Count 170 K/uL (130-400); RDW Standard Deviation 45.9 fL (36.4-46.3); Red Blood Count 4.16 M/uL (4.70-6.10); White Blood Count 5.78 K/ul (4.8-10.8)
[2025-06-26 08:30] LABS: Anion Gap 7.0 (3-11); Blood Urea Nitrogen 8.0 mg/dl (6-23); Calcium 8.6 mg/dl (8.6-10.3); Carbon Dioxide 29.0 mmol/L (21-32); Chloride 104.0 mmol/L (98-107); Creatinine Clr Calc Pharmacy 90.3 ml/min; Glucose 124.0 mg/dl (70-99(Fasting)); Potassium 4.0 mmol/L (3.5-5.1); Sodium 140.0 mmol/L (136-145)
[2025-06-26] MEDS: METOPROLOL SUCC 25MG EXT REL TAB PO SCH (08:31)
[2025-06-26] MEDS: CLOPIDOGREL BISULFATE 75 MG TAB PO SCH (08:31)
[2025-06-26] MEDS: REMOVE LIDODERM PATCH SCH (08:45)
[2025-06-26] MEDS: MoRPHine SULFATE 2 MG/ML CARP IV PRN (09:40)
--- NOTE | 2025-06-26 09:58 | Gastroenterology Progress Note ---
Date of Service June 26, 2025 Assessment & Plan (1) SBO (small bowel obstruction): Plan: 74 year old male w/ history of DM, Mod-Severe , CAD with prior [place] s/p recent cardiac catheterization with stent placement 06/03/2025 admitted w abd pain, nausea/vomiting on 06/24 CTAP w/ circumferential mural thickening in the pyloric region of stomach w/ dilation of stomach, duodenum and proximal jejunum w/ transition point in the right upper quadrant where abrupt change in luminal caliber noted with suggestion of mural thickening in this region. NPO for anticipated EGD today We appreciate assistance in the management of any serological abnormality and corrections to include: hemoglobin >7, INR <2, platelets >50,000, potassium levels >3.5 but <5.3, and sodium levels within 5 points of the reference range prior to endoscopic evaluation. Thank you for allowing us to participate in the care of this patient. Please call with any acute changes, questions or concerns. Please see addendum below with additional recommendation from my supervising physician. Admission and Anticipated Discharge Date Admission Date: June 24, 2025 Subjective Remains NPO for EGD. KUB yesterday improved. Passing gas. No nausea/vomiting this AM. Review of Systems Review of Systems: All other findings negative except as noted in HPI. Physical Exam Constitutional: WD/WN, vitals as above Respiratory: normal respiratory effort Cardiovascular: Rate/Rhythm: regular rate Gastrointestinal (Abdomen): +improving distention Skin: no rashes, warm and dry Results & Data Results & Data Vital Signs (Past 12 Hours) Vital Signs Temp Pulse Resp BP Pulse Ox O2 Del Method 06/26/25 07:17 99.0 F 70 16 167/71 H 92 Room Air 06/25/25 23:35 100.0 F H 84 16 131/64 95 Room Air Laboratory Results 06/26/25 06/26/25 06/25/25 Range/Units 07:31 06:09 23:46 WBC 5.78 (4.8-10.8) K/ul RBC 4.16 L (4.70-6.10) M/uL Hgb 9.9 L (14.0-18.0) g/dL Hct 31.9 L (42.0-52.0) % MCV 76.7 L (80.0-100.0) fL MCH 23.8 L (25.0-34.0) pg MCHC 31.0 L (32.0-36.0) g/dL RDW Std Deviation 45.9 (36.4-46.3) fL RDW Coeff of Huma 16.6 H (11.5-14.5) % Plt Count 170 (130-400) K/uL MPV 9.1 L (9.4-12.4) fL Immature Gran % (Auto) 0.3 % Neut % (Auto) 71.0 % Lymph % (Auto) 11.9 % [place] % (Auto) 14.4 % Eos % (Auto) 2.1 % Baso % (Auto) 0.3 % Neut # (Auto) 4.10 (1.40-6.50) K/uL Lymph # (Auto) 0.69 L (1.20-3.40) K/uL [place] # (Auto) 0.83 H (0.11-0.59) K/uL Eos # (Auto) 0.12 (0.00-0.50) K/uL Baso # (Auto) 0.02 (0.00-0.20) K/uL Immature Gran # (Auto) 0.02 (0.01-0.20) K/uL Sodium 140 (136-145) mmol/L Potassium 4.0 (3.5-5.1) mmol/L Chloride 104 (98-107) mmol/L Carbon Dioxide 29 (21-32) mmol/L Anion Gap 7 (3-11) BUN 8 (6-23) mg/dl Creatinine 0.77 (0.6-1.4) mg/dl Est Cr Clr Drug Dosing 90.3 ml/min eGFR 94.53 BUN/Creatinine Ratio 10.4 (10-20) Glucose 124 H (70-99(Fasting)) mg/dl POC Glucose 115 H 109 H (70-99) mg/dl Calcium 8.6 (8.6-10.3) mg/dl 06/25/25 06/25/25 Range/Units 17:48 11:25 WBC (4.8-10.8) K/ul RBC (4.70-6.10) M/uL Hgb (14.0-18.0) g/dL Hct (42.0-52.0) % MCV (80.0-100.0) fL MCH (25.0-34.0) pg MCHC (32.0-36.0) g/dL RDW Std Deviation (36.4-46.3) fL RDW Coeff of Huma (11.5-14.5) % Plt Count (130-400) K/uL MPV (9.4-12.4) fL Immature Gran % (Auto) % Neut % (Auto) % Lymph % (Auto) % [place] % (Auto) % Eos % (Auto) % Baso % (Auto) % Neut # (Auto) (1.40-6.50) K/uL Lymph # (Auto) (1.20-3.40) K/uL [place] # (Auto) (0.11-0.59) K/uL Eos # (Auto) (0.00-0.50) K/uL Baso # (Auto) (0.00-0.20) K/uL Immature Gran # (Auto) (0.01-0.20) K/uL Sodium (136-145) mmol/L Potassium (3.5-5.1) mmol/L Chloride (98-107) mmol/L Carbon Dioxide (21-32) mmol/L Anion Gap (3-11) BUN (6-23) mg/dl Creatinine (0.6-1.4) mg/dl Est Cr Clr Drug Dosing ml/min eGFR BUN/Creatinine Ratio (10-20) Glucose (70-99(Fasting)) mg/dl POC Glucose 109 H 91 (70-99) mg/dl Calcium (8.6-10.3) mg/dl PG Care Time/CCT Total # of Minutes Spent Total Time Spent with Patient: Total time spent is greater than 50% in coordination of care (as documented) at patient's floor/unit and/or counseling patient: Coding Level of Care Code None Diagnoses SBO (small bowel obstruction) K56.609
--- NOTE | 2025-06-26 10:32 | Surgery Progress Note ---
Date of Service June 26, 2025 Assessment & Plan (1) SBO (small bowel obstruction): Plan: Follow-up his EGD today From a surgical standpoint the NG tube can be removed after this and he can be started on clear liquids to see how he does No plans for any surgical intervention Admission and Anticipated Discharge Date Admission Date: June 24, 2025 Subjective Denies any abdominal pain. No nausea or vomiting. He is passing a lot of flatus. No BM. Review of Systems Constitutional: no fever and no chills Respiratory: no cough and no dyspnea Cardiovascular: no chest pain and no dyspnea on exertion Gastrointestinal: no abdominal pain, no nausea and no vomiting Genitourinary: no dysuria, no nocturia or no flank pain Integumentary: no acne, no lesions and no dry skin Psychiatric: no behavioral changes and no depression Hematologic / Lymphatic: no easy bleeding and no easy bruising Physical Exam Constitutional: WD/WN, vitals as above Eyes: PERRL, conjunctivae normal, anicteric sclerae Respiratory: normal respiratory effort, lungs clear to auscultation Cardiovascular: RRR, no murmur, no edema Gastrointestinal (Abdomen): Inspection/Auscultation: abdomen normal to inspection; abdomen not distended Percussion/Palpation: abdomen soft; abdomen nontender and no guarding Musculoskeletal: no cyanosis or clubbing, extremities motor strength 5/5 Skin: no rashes, warm and dry Psychiatric: A+Ox3, euthymic affect Results & Data Vital Signs (Past 12 Hours) Vital Signs Temp Pulse Resp BP Pulse Ox O2 Del Method 06/26/25 07:17 37.2 C 70 16 167/71 H 92 Room Air 06/25/25 23:35 37.8 C H 84 16 131/64 95 Room Air PG Care Time/CCT Total # of Minutes Spent Total Time Spent with Patient: Total time spent is greater than 50% in coordination of care (as documented) at patient's floor/unit and/or counseling patient: Coding Level of Care Code 74166 SUB INP/OBS CARE 08/25MIN Diagnoses SBO (small bowel obstruction) K56.609
--- NOTE | 2025-06-26 10:33 | Hospitalist Progress Note ---
Date of Service June 26, 2025 Assessment & Plan (1) SBO (small bowel obstruction): (2) CAD (coronary artery disease): (3) Aortic stenosis: (4) Diabetes mellitus: (5) Hypertension: (6) GERD (gastroesophageal reflux disease): (7) Sarcoidosis: Plan 74yo male presenting with abdominal pain, nausea and vomiting on 06/24/2025. #SBO patient with no history of abdominal surgery. Reports he had similar symptoms approximately 1 week ago which resolved on their own in a day. CTAP w/ interval development of thickening in pyloric region of stomach; dilated duodenum & proximal jejunum showing air fluid levels suggestive of SBO secondary to inflammatory stricture. Neoplastic etiology cannot be excluded. Repeat KUB 06/25 - neg for bowel distention. moderate retained stool CBC w/ no leukocytosis. BMP w/ stable renal function & electrolytes General surgery consulted --> recommending EGD GI consulted --> s/p EGD w/ LA grade B reflux esophagitis, gastritis, no evidence of retained fluid, stricture, inflammation in jejunum following EGD, NG tube removed, clear liquid diet. Increase PPI to BID dosing. Morphine prn pain; Zofran prn nausea. #CAD / HTN / HLP patient with remote ME in 2004, 5 stents. Recent stent placement 06/03/2025 resume Plavix & metoprolol. Given recent stent placement Plavix should be continued. #Aortic Stenosis - moderate to severe per most recent echo. Patient euvolemic at present #Diabetes A1c 11/2024 - 6.5% Hold Metformin ISS Update A1c in AM #Anxiety/Mental Health Continue Buspirone 10mg po BID s/p 0.25mg IV Ativan x 2; Hydroxyzine added prn to help with worsening anxiety. Ppx - Lovenox Full Code Admission and Anticipated Discharge Date Admission Date: June 24, 2025 Supervising Physician Co-Signing Physician Notes The patient was not seen by me. The chart was reviewed. Case discussed with JORGE Alves. Agree with assessment and plan Subjective Boo was seen & examined this morning. He reports no nausea or abdominal pain today. states he has been passing gas but has not had a BM yet. He is to go for an EGD this afternoon Physical Exam Physical Exam: General: NAD, VS: BP 132/70; P74; R16; T37.4C Resp: normal respiratory effort Abd: soft, nontender to palpation, hypoactive BS Extremities: Moves all extremities, no edema Neuro: A&O x3, Skin: intact, no lesions noted Results & Data Results & Data Vital Signs (Past 12 Hours) Vital Signs Temp Pulse Resp BP Pulse Ox O2 Del Method 06/26/25 07:17 37.2 C 70 16 167/71 H 92 Room Air 06/25/25 23:35 37.8 C H 84 16 131/64 95 Room Air PG Care Time/CCT Total # of Minutes Spent Total Time Spent with Patient: Total time spent is greater than 50% in coordination of care (as documented) at patient's floor/unit and/or counseling patient: Coding Level of Care Code 50915 SUB INP/OBS CARE MIN Diagnoses SBO (small bowel obstruction) K56.609 Coronary artery disease involving [place] heart without angina pectoris, unspecified vessel or lesion type I25.10 Associated angina: without angina Coronary Disease-Associated Artery/Lesion type: unspecified vessel or lesion type [place] vs. transplanted heart: wiyot heart Aortic stenosis I35.0 Cardiac valve disease etiology: etiology unspecified Diabetes mellitus E11.9 Primary hypertension I10 Hypertension type: primary hypertension GERD (gastroesophageal reflux disease) K21.9 Sarcoidosis D86.9 (2) CAD (coronary artery disease) Associated angina: without angina Coronary Disease-Associated Artery/Lesion type: unspecified vessel or lesion type [place] vs. transplanted heart: [place] heart Qualified Code(s): I25.10 - Atherosclerotic heart disease of [place] coronary artery without angina pectoris (3) Aortic stenosis Cardiac valve disease etiology: etiology unspecified Qualified Code(s): I35.0 - Nonrheumatic aortic (valve) stenosis (5) Hypertension Hypertension type: primary hypertension Qualified Code(s): I10 - Essential (primary) hypertension
--- NOTE | 2025-06-26 14:11 | Anesthesiology Consultation ---
Date of Service June 26, 2025 Assessment & Plan (1) SBO (small bowel obstruction): (2) Aortic stenosis: (3) CAD (coronary artery disease): Chart Review Chart Review: Acceptable Risk for Surgery Consults Requested none ASA ASA4 Proposed Anesthesia Anesthesia Type: MAC Risk / Benefits Reviewed With: PT / POA / Parent / Guardian, Accepts Plan and Informed Consent Obtained Additional Comments: pt aware he is high cardiac risk given severe and recent DE with MARYBEL less than 30d prior. However given need to exclude malignancy will proceed with understanding of risk of cardiac , repeat DE, aspiration, CVA. History Surgery Operation Date: 06/26/25 16:45 Proposed Procedures p Esophagogastroduodenoscopy Dr. Donovan - Azar Donovan MD Height/Weight Height: 5 ft 8 in Weight: 84.1 kg Allergies Allergy/AdvReac Type Severity Reaction Status Date / Time No Known Drug Allergies Allergy Unknown . Verified 06/18/25 15:12 Medications Home Medications Medication Instructions Recorded Confirmed Last Taken calcium 600 mg (as 1 tab PO QAM 12/13/18 06/24/25 09/21/21 carbonate)-vitamin D3 5 mcg (200 unit) tablet nitroglycerin 0.4 mg sublingual 0.4 mg sublingual UD PRN Chest Pain 12/13/18 06/24/25 Unknown tablet aspirin 81 mg tablet,delayed 81 mg PO QAM 06/10/19 06/24/25 09/21/21 release coQ10 (ubiquinol) 200 mg capsule 200 mg PO QAM 06/10/19 06/24/25 09/21/21 cholecalciferol (vitamin D3) 50 2,000 unit PO QAM 09/03/19 06/24/25 09/21/21 mcg (2,000 unit) tablet (Vitamin D3) metoprolol succinate 25 mg 25 mg PO QAM #90 tabs 07/23/24 06/24/25 Unknown tablet,extended release 24 hr lisinopril 10 mg tablet 10 mg PO BID #180 tabs 10/15/24 06/24/25 Unknown atorvastatin 40 mg tablet 40 mg PO HS #90 tabs 01/03/25 06/24/25 Unknown metformin 500 mg tablet,extended 500 mg PO BID 04/15/25 06/24/25 Unknown release 24 hr vitamin B complex 1 tab PO DAILY 04/15/25 06/24/25 Unknown pantoprazole 40 mg tablet,delayed 40 mg PO QAM 06/01/25 06/24/25 Unknown release zolpidem 5 mg tablet 5 mg PO DAILY 06/01/25 06/24/25 Unknown clopidogrel 75 mg tablet 75 mg PO DAILY #60 tabs 06/04/25 06/24/25 Unknown buspirone 10 mg tablet 10 mg PO BID #60 tabs 06/11/25 06/24/25 Unknown tamsulosin 0.4 mg capsule 0.4 mg PO QPM #90 caps 06/14/25 06/24/25 Unknown gabapentin 300 mg capsule 300 mg PO DAILY PRN low back pain 06/18/25 06/24/25 Unknown tramadol 50 mg tablet 50 - 100 mg (1 - 2 x 50 mg) PO HS 06/18/25 06/24/25 Unknown PRN pain #60 tabs Active Medications Generic Name Dose Route Start Last Admin Trade Name Freq PRN Reason Stop Dose Admin Buspirone HCl 10 mg 06/25/25 21:00 06/26/25 08:31 Buspirone 5 Mg Tab PO 07/25/25 20:59 10 mg BID NEELA Administration Clopidogrel Bisulfate 75 mg 06/26/25 09:00 06/26/25 08:31 Clopidogrel Bisulfate 75 Mg Tab PO 07/26/25 08:59 75 mg QAM NEELA Administration Enoxaparin Sodium 40 mg 06/24/25 07:00 06/26/25 06:20 Enoxaparin Inj 40 Mg/0.4 Ml Syr SQ 07/24/25 06:59 40 mg Q24H NEELA Administration Pantoprazole Sodium 40 mg in 10 mls @ 5 mls/min 06/24/25 09:00 06/26/25 08:32 Protonix IV 07/24/25 08:59 5 mls/min DAILY NEELA Administration Dextrose/Lactated Ringer's 1,000 mls @ 80 mls/hr 06/25/25 06:15 06/26/25 08:44 D5w And Lactated Ringers IV 06/28/25 06:14 80 mls/hr .[id number] NEELA Administration Sodium Chloride 500 mls @ 15 mls/hr 06/26/25 07:30 06/26/25 14:33 Nss IV 06/27/25 07:29 15 mls/hr .Q24H NEELA Administration Insulin Aspart 0 units 06/24/25 12:00 06/26/25 12:40 Insulin Aspart Per Unit Charge SC 07/24/25 11:59 Not Given Q6 NEELA Lidocaine 1 patch 06/25/25 21:00 06/25/25 20:06 Lidocaine 5% 1 Patch TD 07/25/25 20:59 1 patch HS NEELA Administration Metoprolol Succinate 25 mg 06/26/25 09:00 06/26/25 08:31 Metoprolol Succ 25mg Ext Rel Tab PO 07/26/25 08:59 25 mg QAM NEELA Administration Miscellaneous 1 each 06/26/25 08:59 06/26/25 08:45 Remove Lidoderm Patch N/A 07/25/25 20:59 1 each DAILY@0859 NEELA Administration Morphine Sulfate 2 mg 06/24/25 06:02 06/26/25 09:40 Morphine Sulfate 2 Mg/Ml Carp IV 07/08/25 06:01 2 mg Q3H PRN Administration Pain (1,2,3,4,5) & Pre PT Morphine Sulfate 4 mg 06/24/25 06:02 06/26/25 14:00 Morphine Sulfate 4 Mg/Ml 1 Ml Carp\\Vial IV 07/08/25 06:01 4 mg Q3H PRN Administration Pain (6,7,8,9,10) NPO Date Last Intake of Fluids: 06/23/25 Time Last Intake of Fluids: 18:00 Date Last Intake of Solids: 06/16/25 Time Last Intake of Solids: 18:00 Past Medical History Medical History (Updated 06/26/25 @ 14:03 by Vesna Dubon DO) Dyslipidemia Sarcoidosis stable, no longer on pred Cervical spine degeneration BPH (benign prostatic hyperplasia) GERD (gastroesophageal reflux disease) Hypertension Neurogenic claudication Prepatellar bursitis, left knee Chronic low back pain Insomnia Vitamin D deficiency Obstructive sleep apnea "moderate" RONNIE: no device (non-compliant) Peripheral neuropathy Osteoporosis with fracture steroid induced, on reclast Arthritis Myalgia Joint pain in both hands Dyspnea on exertion Lumbar spondylosis Lumbar radicular pain Paresthesia of right lower extremity History of osteoporosis Lumbar stenosis without neurogenic claudication Degenerative lumbar disc Diabetes mellitus Aortic stenosis severe History of trigger finger both hands on pointer finger, ring finger and little finger Hx of Clostridium difficile infection Anxiety and depression Anemia CVA (cerebral vascular accident) 2010 (per cardiology note/patient denies during PAT interview) Pulmonary embolism (~2010) 2011 DX SUBDURAL HEMATOMA (WAS ON ELIQUIS FOR [place]) Deep vein thrombosis RLE (2010) DX SUBDURAL HEMATOMA Myocardial Infarction (~2002) ? YEAR 2002 History of tumor Excision of abdominal wall tumor Glaucoma Exercise / Class Metabolic Activity II 4-5 Yardwork/Stairs/Walk up hill Past Family History Family History Mother Congestive heart failure Cardiac disorder COPD (chronic obstructive pulmonary disease) Hypertension Father Prostate cancer COPD (chronic obstructive pulmonary disease) Son Family history of diabetes mellitus Other No family history of adverse response to anesthesia Denies family history of Ovarian cancer Myocardial infarction Breast cancer Colorectal cancer Past Surgical History Surgical History (Updated 06/26/25 @ 14:04 by Vesna Dubon DO) History of tooth extraction History of repair of rotator cuff S/P tendon repair LEFT bicep repair S/P arthroscopy of left shoulder S/P epidural steroid injection cervical and lumbar History of esophagogastroduodenoscopy (EGD) History of colonoscopy History of vitrectomy bilateral History of heart artery stent x7 total stents (2002, 2010, 06/03/25) History of cardiac cath multiple Status post repair of nerve Neuroplasty median nerve at carpal tunnel H/O inguinal hernia repair bilateral H/O hand surgery right hand reconstruction H/O brain surgery subdural hematoma (~2011) Past Anesthesia History No Hx of Anesthesia Complications and No Family Hx of Anesthesia Complications History of PONV No Hx of PONV and No Hx of Motion Sickness Social History Smoking Status: Never smoker Do You Dip or Chew Tobacco: No Hx Alcohol Use: No Hx Substance Use: No substance use type: does not use Physical Exam Vital Signs Last Vital Signs Temp 37.4 C 06/26/25 14:30 Pulse 73 06/26/25 14:30 Resp 16 06/26/25 14:30 BP 157/82 H 06/26/25 14:30 Pulse Ox 95 06/26/25 14:30 O2 Del Method Room Air 06/26/25 14:30 ENMT Mouth: no TMJ abnormality Thyromental Distance: > or= 3.5 Finger Breadths Mallampati Class: II Neck normal visual inspection, trachea midline and + facial hair; neck extension not limited Respiratory normal respiratory effort Auscultation: lungs clear to auscultation bilaterally Cardiovascular Rate/Rhythm: regular rate and regular rhythm Heart Sounds: no murmur Musculoskeletal Spine: normal cervical ROM Extremities: full ROM of extremities Neurologic moves all extremities Psychiatric Orientation: alert and oriented x 3 gtisnitu, no drainage with suction Testing Laboratory Results 06/26/25 07:31 06/26/25 07:31 PT 11.3 Seconds (9.0-12.0) 06/24/25 00:38 INR 1.1 (0.9-1.1) 06/24/25 00:38 Urine Color Yellow 06/24/25 00:51 Urine Appearance Clear (Clear) 06/24/25 00:51 Urine pH 6.0 (4.5-7.5) 06/24/25 00:51 Ur Specific [place] 1.015 (1.000-1.030) 06/24/25 00:51 Urine Protein Negative (Negative) 06/24/25 00:51 Urine Glucose (UA) Negative (Negative) 06/24/25 00:51 Urine Ketones Negative (Negative) 06/24/25 00:51 Urine Nitrite Negative (Negative) 06/24/25 00:51 Ur Leukocyte Esterase Trace (Negative) H 06/24/25 00:51 Urine WBC (Auto) 0-5 /hpf (0-5) 06/24/25 00:51 Urine RBC (Auto) 0-2 /hpf (0-2) 06/24/25 00:51 U Hyaline Cast (Auto) 0-2 /lpf (0-2) 06/24/25 00:51 U Epithel Cells (Auto) 0-2 /hpf (0-2) 06/24/25 00:51 Urine Bacteria (Auto) None Seen (None Seen) 06/24/25 00:51 06/26/25 06/26/25 11:59 06:09 POC Glucose 105 H 115 H Chest X-Ray Date: 06/24/25 XR chest 1V portable CLINICAL HISTORY: Nausea, Vomiting TECHNIQUE: An X-ray image of the chest is obtained in AP projection. COMPARISON: Compared to the previous study, dated 06/01/2025. FINDINGS: Pulmonary Parenchyma: Mild pulmonary vascular congestion. No evidence of consolidation, collapse, or focal opacities. No pulmonary nodules are identified. Atelectatic bands at bilateral middle lung zones. No evidence of pleural effusion or pleural thickening. Heart and Mediastinum: Cardiomegaly. No mediastinal widening or masses. No hilar or mediastinal lymphadenopathy. Retrocardiac air-fluid level suggestive of hiatus hernia. Bony Thorax: Bony thorax appears intact without fractures or deformities. Soft Tissues: Soft tissues overlying the chest wall are unremarkable. ECG leads are seen overlying the chest. IMPRESSION: 1. Cardiomegaly. Mild pulmonary vascular congestion. Stable. 2. Atelectatic bands at bilateral middle lung zones. Stable. 3. Retrocardiac air-fluid level suggestive of hiatus hernia. Stable. 4. No significant interval changes. Echocardiogram Date: 05/16/25 EF: 55-60 LV Function: normal RWMA: + none Other Findings: + LVH (concen), + diastolic dysfunction (gr 2 ) and + pertinent finding (mild pulm htn) Valvular Disease: + (severe EDA 0.9cm) Cardiac Catheterization Date: 06/03/25 1. Multivessel coronary artery disease - 60% mid LAD in-stent restenosis, 60-70% latemid stenosis just distal to prior stents (IFR across lesions 0.74). 70% ostial D2 40-50% ostial/proximal circumflex 30-40% ostial RCA 2. Normal left and right sided filling pressures. 3. Normal pulmonary artery pressures 4. Borderline cardiac output (Thermo 3.2, Verito 4.1) 5. Moderate to severe aortic stenosis (MG 17, EDA 0.86-1.0 cm). 6. Successful PCI of latemid LAD with new MARYBEL (2.75 x 18 mm [place]; postdilated with 3.5 NC) overlapping distal aspect of prior stent chain. 7. Successful angioplasty of mid LAD in-stent restenosis (3.5 NC). Recommendations: To PCU for continued monitoring Loaded with clopidogrel 600 mg in Top Lift Trimmer Continue dual-antiplatelet therapy for at least 6 months Continue statin, and ASCVD risk factor modification Medical management of residual CAD. Likely referral to tertiary center for further AVR evaluation if exertional dyspnea does not improve. Hemodynamics (2) Aortic stenosis Cardiac valve disease etiology: nonrheumatic Qualified Code(s): I35.0 - Nonrheumatic aortic (valve) stenosis (3) CAD (coronary artery disease) Associated angina: without angina Coronary Disease-Associated Artery/Lesion type: unspecified vessel or lesion type [place] vs. transplanted heart: [place] heart Qualified Code(s): I25.10 - Atherosclerotic heart disease of [place] coronary artery without angina pectoris
[2025-06-26] MEDS: SODIUM CHLORIDE 0.9% 500 ML IV SCH (14:33)
--- NOTE | 2025-06-26 15:33 | GI REPORT ---
[facility] Patient: LIZZETTE [place] : 1950 Sex at : Male Age: 74 Years Procedure: Upper GI endoscopy Date: 06/26/2025 Attending Physician: Azar Donovan MD Referring MD: Referred Self Indications: - Abnormal CT of the GI tract - Exclusion of small bowel obstruction - Nausea with vomiting Medications: - See the Anesthesia note for documentation of the administered medications Complications: - No immediate complications. Estimated Blood Loss: - Estimated blood loss: None. Procedure: - Prior to the procedure, a History and Physical was performed, and patient medications and allergies were reviewed. The patient's tolerance of previous anesthesia was also reviewed. The risks and benefits of the procedure and the sedation options and risks were discussed with the patient. All questions were answered, and informed consent was obtained. Prior Anticoagulants: The patient has taken Plavix (clopidogrel), last dose was day of procedure. ASA Grade Assessment: IV - A patient with severe systemic disease that is a constant threat to life. After reviewing the risks and benefits, the patient was deemed in satisfactory condition to undergo the procedure. - The pediatric colonoscope was introduced through the mouth and advanced to the jejunum. - The upper GI endoscopy was accomplished without difficulty. - The patient tolerated the procedure well. Findings: - The examined jejunum was normal. There is no evidence of retained fluid, stricture, inflammation in the examined jejunum to the full extent of the pediatric colonoscope. - The examined duodenum was normal. - Patchy moderate to severe inflammation characterized by erosions and erythema was found at the pylorus, in the gastric antrum and in the gastric body. Biopsies were taken with a cold forceps for Helicobacter pylori testing. - LA Grade B (one or more mucosal breaks greater than 5 mm, not extending between the tops of two mucosal folds) esophagitis with no bleeding was found at the gastroesophageal junction (on retroflexion). Impression: - Normal examined jejunum. - There is no evidence of retained fluid, stricture, inflammation in the examined jejunum to the full extent of the pediatric colonoscope. - Normal examined duodenum. - Gastritis, characterized by erosions and erythema. Biopsied. - LA Grade B reflux esophagitis with no bleeding. Recommendation: - Await pathology results. - Maintain patient on pantoprazole 40 mg twice daily. - Avoid additional nonsteroidal anti-inflammatory medication beyond patient's required antiplatelet agents. - Gently restart diet beginning with clear liquids. There is no evidence of active obstruction at this time. - Recall GI service for any acute change in patient clinical condition. Procedure Code(s): - 40066, Esophagogastroduodenoscopy, flexible, transoral; with biopsy, single or multiple Diagnosis Code(s): - R93.3, Abnormal findings on diagnostic imaging of other parts of digestive tract - R11.2, Nausea with vomiting, unspecified - K29.70, Gastritis, unspecified, without bleeding - K21.00, Gastro-esophageal reflux disease with esophagitis, without bleeding CPT(R) - 2023 copyright [employer]. All Rights Reserved. The CPT codes, CCI edits and ICD codes generated are intended as suggestions and were generated based on input data. These codes are preliminary and upon marketing agent review may be revised to meet current compliance and payer requirements. The provider is responsible for the final determination of appropriate codes, and modifiers. Azar Donovan MD This document has been electronically signed. Note Initiated:06/26/2025 Note Completed:06/26/2025 3:32 PM [email or web address]\[id number]
--- NOTE | 2025-06-26 15:47 | Anesthesiology Progress Note ---
Date of Service June 26, 2025 Anesthesia Post Procedure Vital Signs Vital Signs: Temp Pulse Resp BP Pulse Ox O2 Del Method 06/26/25 15:31 70 12 127/73 99 Room Air 06/26/25 14:30 37.4 C 73 16 157/82 H 95 Room Air 06/26/25 07:17 37.2 C 70 16 167/71 H 92 Room Air 06/25/25 23:35 37.8 C H 84 16 131/64 95 Room Air Pain Intensity Abdomen: Pain Intensity: 7 Transfer of Care Handoff Completed per policy Notes Mental Status: alert / awake / arousable Patient Amnestic to Procedure: Yes Nausea / Vomiting: adequately controlled Pain: adequately controlled Airway Patency, RR, SpO2: stable & adequate BP & HR: stable & adequate Hydration State: stable & adequate Anesthetic Complications: no major complications apparent and Pt Satisfied with anesthetic care
[2025-06-26] MEDS: KETAMINE HCL 10MG/ML SYR ONE (16:38)
[2025-06-26] MEDS: LIDOCAINE 2% 2 ML VIAL/AMP(20MG/ML) INFIL ONE (16:39)
[2025-06-26] MEDS: BENZOCAINE/TETRACAIN/BUTAM 50 APPLN/5 GM CAN EXT ONE (16:39)
[2025-06-26] MEDS: MIDAZOLAM HCL 1 MG/ML 2ML VIAL ONE (16:39)
[2025-06-26] MEDS: PROPOFOL IV EMULSION 10 MG/ML 20 ML VIAL IV ONE (16:39)
[2025-06-26] MEDS: PHENYLEPHRINE 100MCG/ML 5ML SYR ONE (16:39)
[2025-06-26] MEDS: ONDANSETRON INJ 2 MG/ML 2 ML VIAL ONE (16:40)
[2025-06-26] MEDS ORDERED: Nursing to Pharmacy Communication SCH (19:15)
[2025-06-26] MEDS: PANTOprazole 40 MG/10 ML SYR IV SCH (20:34)
[2025-06-26] MEDS: INSULIN ASPART PER UNIT CHARGE SC SCH (20:52)
[2025-06-27 07:18] VITALS: BP 109/65; PULSE 73; RESP 16; TEMP 99; O2SAT 93
[2025-06-27 07:33] LABS: Hematocrit (blood only) 31.6 % (42.0-52.0); Hemoglobin 10.0 g/dL (14.0-18.0); Immature Granulocytes # (auto) 0.01 K/uL (0.01-0.20); Immature Granulocytes % (auto) 0.2 %; Mean Corpuscular Hemoglobin 24.0 pg (25.0-34.0); Mean Corpuscular Volume 75.8 fL (80.0-100.0); Platelet Count 177 K/uL (130-400); RDW Standard Deviation 45.5 fL (36.4-46.3); Red Blood Count 4.17 M/uL (4.70-6.10); White Blood Count 4.61 K/ul (4.8-10.8)
[2025-06-27 07:50] LABS: Anion Gap 7.0 (3-11); Blood Urea Nitrogen 7.0 mg/dl (6-23); Calcium 8.7 mg/dl (8.6-10.3); Carbon Dioxide 29.0 mmol/L (21-32); Chloride 105.0 mmol/L (98-107); Creatinine Clr Calc Pharmacy 80.8 ml/min; Glucose 103.0 mg/dl (70-99(Fasting)); Potassium 4.2 mmol/L (3.5-5.1); Sodium 141.0 mmol/L (136-145)
[2025-06-27 08:13] LABS: Hemoglobin A1C 6.1 % (4.5-5.6)
--- NOTE | 2025-06-27 11:38 | Surgery Progress Note ---
Date of Service June 27, 2025 Assessment & Plan (1) SBO (small bowel obstruction): Plan: His upper endoscopy results were reviewed No abnormality seen that would explain his presentation He is tolerating a diet and has returned of bowel function He can be discharged from a surgical standpoint Surgery will sign off at this time, please call with any questions or concerns Admission and Anticipated Discharge Date Admission Date: June 24, 2025 Subjective Patient seen and examined. Denies any nausea or vomiting. Tolerating liquids and had some scrambled eggs as well. He is having bowel movements. Denies abdominal pain. Review of Systems Constitutional: no fever and no chills Respiratory: no cough and no dyspnea Cardiovascular: no chest pain and no dyspnea on exertion Gastrointestinal: no abdominal pain, no nausea and no vomiting Genitourinary: no dysuria, no nocturia or no flank pain Integumentary: no acne, no lesions and no dry skin Psychiatric: no behavioral changes and no depression Hematologic / Lymphatic: no easy bleeding and no easy bruising Physical Exam Constitutional: WD/WN, vitals as above Eyes: PERRL, conjunctivae normal, anicteric sclerae Respiratory: normal respiratory effort, lungs clear to auscultation Cardiovascular: RRR, no murmur, no edema Gastrointestinal (Abdomen): Inspection/Auscultation: abdomen normal to inspection; abdomen not distended Percussion/Palpation: abdomen soft; abdomen nontender and no guarding Musculoskeletal: no cyanosis or clubbing, extremities motor strength 5/5 Skin: no rashes, warm and dry Psychiatric: A+Ox3, euthymic affect Results & Data Vital Signs (Past 12 Hours) Vital Signs Temp Pulse Resp BP Pulse Ox O2 Del Method 06/27/25 07:15 37.2 C 73 16 109/65 93 Room Air 06/26/25 23:55 37.6 C H 77 18 125/74 95 Room Air PG Care Time/CCT Total # of Minutes Spent Total Time Spent with Patient: Total time spent is greater than 50% in coordination of care (as documented) at patient's floor/unit and/or counseling patient: Coding Level of Care Code 26992 SUB INP/OBS CARE 08/25MIN Diagnoses SBO (small bowel obstruction) K56.609
--- NOTE | 2025-06-27 13:13 | Discharge Summary ---
Discharge Summary Date of Service June 27, 2025 Principal Dx & Hospital Course #1 = Principal Diagnosis (1) SBO (small bowel obstruction): (2) CAD (coronary artery disease): (3) Diabetes mellitus: (4) Hypertension: (5) Sarcoidosis: Plan 74yo male presenting with abdominal pain, nausea and vomiting on 06/24/2025. #SBO patient with no history of abdominal surgery. Reports he had similar symptoms approximately 1 week ago which resolved on their own in a day. CTAP w/ interval development of thickening in pyloric region of stomach; dilated duodenum & proximal jejunum showing air fluid levels suggestive of SBO secondary to inflammatory stricture; Repeat KUB 06/25 - neg for bowel distention. moderate retained stool CBC w/ no leukocytosis. BMP w/ stable renal function & electrolytes General surgery consulted --> recommended EGD GI consulted --> s/p EGD w/ LA grade B reflux esophagitis, gastritis, no evidence of retained fluid, stricture, inflammation in jejunum, bx taken for H. pylori. NG tube removed on 06/26 following EGD. Now has had BM & is tolerating low fiber diet prior to discharge. Increase PPI to BID dosing. #CAD / HTN / HLP patient with remote OH in 2004, 5 stents. Recent stent placement 06/03/2025 Continue ASA, Plavix, & metoprolol on discharge #Aortic Stenosis - moderate to severe per most recent echo, continue to follow w/ system development engineer. #Diabetes- A1c 11/2024 - 6.5%, resume outpatient regimen. #Anxiety/Mental Health Continue Buspirone 10mg po BID Did have improvement w/ hydroxyzine, given prescription on discharge. Pt discharged home 06/27. Admission HPI Per Admitting Provider Boo Garcia is a 74yo male with history of DM, Mod-Severe (EDA 0.6-1) CAD with prior OH s/p recent cardiac catheterization with stent placement 06/03/2025 presenting with nausea, vomiting and abdominal pain. Patient was very busy during the day today working around the house and property. He did have some ongoing nausea and abdominal discomfort throughout the day. After eating dinner he developed more severe nausea and abdominal pain. He vomited with minimal relief but the discomfort and nausea persisted. Patient also with fatigue throughout the day. Otherwise denies fever, chills, chest pain, cough or worsening SOB - he does hae stable SOB at baseline. In the ER he is afebrile, HD stable Ongoing nausea, NGT has been placed to [facility] ER Course: Zofran 4mg IV x 2 doses NSS x 1.5L Phenergan 12.5mg Discharge Exam General: NAD, VS: BP 109/65; P73; R16; T37.2C Resp: normal respiratory effort Abd: soft, + BS, non tender to palpation. Extremities: Moves all extremities, no edema Neuro: A&O x3 Skin: intact, no lesions noted Discharge Plan Discharge Items Patient Disposition: Home - Self-Care Reason For Visit: SBO Discharge Diagnosis: Small bowel obstruction Condition on Discharge: Fair Activity: Resume your previous activity Non-emergency contact: Primary Care Provider and Local Sales Associate Call non-emergency contact if: you have any medication questions and your symptoms worsen Follow-up/Referrals: Jen Valera CRNP [Primary Care Provider] - 07/05/25 10:00 am Jairo Chicas DO [Physician] - Diet: Carb Consistent or DM2 Addtl Attending Provider Instructions: Mr. Garcia, You were recently hospitalized secondary to nausea, vomiting, and abdominal pain. You were found to have a bowel obstruction. You had an EGD by our bakery demonstrator and were found to have inflammation in your stomach. Biopsies are pending and they will be in contact with you regarding the results. Medications: Your medication list has been reviewed and reconciled upon discharge to ensure accuracy and continuity of care. An updated list of all your medications is included with your hospital discharge paperwork. Please review this list closely, and make note of any changes. Please take Pantoprazole 40mg twice daily to help with the inflammation in your stomach. Your next dose will be this evening, 06/27. While hospitalized, hydroxyzine did help with your anxiety. A prescription has been given to you on discharge. You may use this every 8 hours as needed for anxiety. Take your medications as instructed; do not skip a dose of your medicines. Make sure all of your doctors know every medicine you are taking (including wpqh-qby-jxvguce medicines, vitamins, and supplements). Call your primary care provider before taking any new medicines (including over- the-counter medicines, vitamins, and supplements), because some of these may interact with your current medications, or may make your symptoms worse. Tell your primary care provider if you cannot afford your medications. Activity: You can do normal everyday activities as your body allows. Take rest breaks if you feel tired. Do not overexert. Stop activity if you have pain, shortness of breath or feel dizzy. Follow-up appointments: Make an appointment with your primary care physician within one week of discharge. A copy of this summary will be sent to them. Every time you see your primary care physician, or any other doctor, bring your medication list, and a list of questions. Please follow up with the GI office on discharge. Their office phone number is above if you have questions or concerns. CONTACT YOUR PRIMARY CARE PROVIDER if you experience any of the following: Shortness of breath or difficulty breathing Fevers or chills Feeling tired with normal activity or experiencing dizziness or fainting Difficulty following your treatment plan, or difficulty taking medications CALL 911 OR GO TO THE EMERGENCY DEPARTMENT if you experience any of the following: Severe abdominal pain or nausea/vomiting Severe chest pain, or chest pain that radiates (moves) to your jaw or arm Sudden, severe shortness of breath or difficulty breathing Thank you for allowing us to participate in your care. Pending Studies at Discharge: Yes Studies:: pathology from EGD Stand-Alone Forms: My [facility] Cytosorbents, Smoking Cessation Medications and DC Order Prescriptions: New hydroxyzine HCl 25 mg Tablet 25 mg PO TID PRN (Reason: anxiety) Qty: 30 0RF Continued metoprolol succinate 25 mg tablet extended release 24 hr 25 mg PO QAM Qty: 90 3RF Hold Instructions: Home Medication placed on hold at Doctor's office lisinopril 10 mg tablet 10 mg PO BID Qty: 180 3RF atorvastatin 40 mg tablet 40 mg PO HS Qty: 90 3RF Rx Instructions: TAKE 1 TABLET AT BEDTIME. tamsulosin 0.4 mg capsule 0.4 mg PO QPM Qty: 90 3RF tramadol 50 mg tablet 50 - 100 mg PO HS PRN (Reason: pain) Qty: 60 1RF Rx Instructions: 1 or 2 at bedtime orally PRN; calcium carbonate-vitamin D3 600 mg(1,500mg) -200 unit tablet 1 tab PO QAM nitroglycerin 0.4 mg tablet, sublingual 0.4 mg SL UD PRN (Reason: Chest Pain) buspirone 10 mg tablet 10 mg PO BID Qty: 60 2RF metformin 500 mg tablet extended release 24 hr 500 mg PO BID vitamin B complex Tablet 1 tab PO DAILY gabapentin 300 mg capsule 300 mg PO DAILY PRN (Reason: low back pain) cholecalciferol (vitamin D3) [Vitamin D3] 2,000 unit Tablet 2,000 unit PO QAM aspirin 81 mg Tablet,Delayed Release (Dr/Ec) 81 mg PO QAM coQ10 (ubiquinol) 200 mg Capsule 200 mg PO QAM zolpidem 5 mg tablet 5 mg PO DAILY Rx Instructions: 5 mg orally daily; clopidogrel 75 mg tablet 75 mg PO DAILY Qty: 60 2RF Changed pantoprazole 40 mg tablet,delayed release (DR/EC) 40 mg PO BID Qty: 60 0RF Rx Instructions: TAKE 1 TABLET BY MOUTH EVERY MORNING Discharge Orders: Discharge Order (Routine); Ordered 06/27/25 Ordered By: Yasmni Ramirez/Other Patient Handouts: Low-Fiber Diet, Managing Type 2 Diabetes Admission Data Admit Date/Time: 06/24/25 04:22 Attending Provider: Kevin Dorantes Admit Provider: Fatemeh Toth Primary Care Provider: Jen Valera Other Providers: Drew Banerjee; Azar Donovan; Fatemeh Toth Other Interventions: Discharge Summary Assessment (RN) Last Done: 06/27/25 13:24 Hospital Stay Data Consultations 06/24/25 03:59 ED Decision to Admit Stat 06/24/25 04:22 Consult General Surgery Routine 06/24/25 05:24 Consult Gastroenterology Routine Procedures Performed Operation Date: 06/26/25 16:45 Actual Procedures p Small Bowel Enteroscopy BX/CYT - Azar Donovan MD Diagnostic Imagining Performed 06/24/25 00:43 CT Abd and Pelvis [CT abd pelvis IV con only] Stat Pending Results Patient Have Any Pending Studies at Discharge: Yes Discharge Instructions Given to Patient (Per Discharging Provider) Mr. Garcia, Alan were recently hospitalized secondary to nausea, vomiting, and abdominal pain. You were found to have a bowel obstruction. You had an EGD by our bakery demonstrator and were found to have inflammation in your stomach. Biopsies are pending and they will be in contact with you regarding the results. Medications: Your medication list has been reviewed and reconciled upon discharge to ensure accuracy and continuity of care. An updated list of all your medications is included with your hospital discharge paperwork. Please review this list closely, and make note of any changes. Please take Pantoprazole 40mg twice daily to help with the inflammation in your stomach. Your next dose will be this evening, 06/27. While hospitalized, hydroxyzine did help with your anxiety. A prescription has been given to you on discharge. You may use this every 8 hours as needed for anxiety. Take your medications as instructed; do not skip a dose of your medicines. Make sure all of your doctors know every medicine you are taking (including iqlq-mnd-ahmvyzr medicines, vitamins, and supplements). Call your primary care provider before taking any new medicines (including over- the-counter medicines, vitamins, and supplements), because some of these may interact with your current medications, or may make your symptoms worse. Tell your primary care provider if you cannot afford your medications. Activity: You can do normal everyday activities as your body allows. Take rest breaks if you feel tired. Do not overexert. Stop activity if you have pain, shortness of breath or feel dizzy. Follow-up appointments: Make an appointment with your primary care physician within one week of discharge. A copy of this summary will be sent to them. Every time you see your primary care physician, or any other doctor, bring your medication list, and a list of questions. Please follow up with the GI office on discharge. Their office phone number is above if you have questions or concerns. CONTACT YOUR PRIMARY CARE PROVIDER if you experience any of the following: Shortness of breath or difficulty breathing Fevers or chills Feeling tired with normal activity or experiencing dizziness or fainting Difficulty following your treatment plan, or difficulty taking medications CALL 911 OR GO TO THE EMERGENCY DEPARTMENT if you experience any of the following: Severe abdominal pain or nausea/vomiting Severe chest pain, or chest pain that radiates (moves) to your jaw or arm Sudden, severe shortness of breath or difficulty breathing Thank you for allowing us to participate in your care. Supervising Physician Co-Signing Physician Notes chart reviewed and case d/w K MARIAA Moreno, as above Total Time Total Time Spent Total Time Spent (In Minutes): 45 Total Time Includes: Examination of the Patient, Discharge Planning and Med ication Reconciliation Coding Level of Care Code 70652 INP/OBS DISCH >30 MIN Diagnoses SBO (small bowel obstruction) K56.609 Coronary artery disease involving [place] heart without angina pectoris, unspecified vessel or lesion type I25.10 Associated angina: without angina Coronary Disease-Associated Artery/Lesion type: unspecified vessel or lesion type [place] vs. transplanted heart: [place] heart Diabetes mellitus E11.9 Primary hypertension I10 Hypertension type: primary hypertension Sarcoidosis D86.9
== END 2025-06-27 14:31 | disposition home or self-care (01) | DRG 390 ==
LOC: ED 00:28 → SUATTDRO 04:22 → 3N 04:22